=== PATIENT | female | born 1935 | race Caucasian/White ===

== ENCOUNTER 2021-02-02 10:15 | Inpatient (IN) | payer MEDICARE, MEDICAID ==
[~2021-02-02] VITALS: Ht 149.9 cm; Wt 90.0 kg
[2021-02-02 10:30] VITALS: BP 115/74
[2021-02-02] MEDS ORDERED: MAG HYDROX/AL HYDROX/SIMETH 30 ML ORAL.SUSP PO PRN (11:00)
[2021-02-02] MEDS ORDERED: MAGNESIUM HYDROXIDE 2,400 MG/30 ML ORAL.SUSP. PO PRN (11:00)
[2021-02-02] MEDS ORDERED: METHYL SALICYLATE/MENTHOL TOPICAL OINTMENT 57GM TUBE. TP PRN (11:00)
[2021-02-02 11:43] LABS: ALBUMIN 2.7 g/dL (3.4-5.0); ALBUMIN/GLOBULIN RATIO 0.7 (1.0-1.7); CALCIUM 8.8 mg/dL (8.5-10.1); CREATININE 1.4 mg/dL (0.6-1.0); GFR 35.8; POTASSIUM 4.1 mmol/L (3.5-5.1); TOTAL BILIRUBIN 0.2 mg/dL (0.2-1.0); TOTAL PROTEIN 6.8 g/dL (6.4-8.2)
[2021-02-02] MEDS ORDERED: CARV12.547 PO (12:00)
[2021-02-02] MEDS ORDERED: FLUT1AER IH (12:00)
[2021-02-02] MEDS ORDERED: OLAN5TAB9 PO (12:00)
[2021-02-02] MEDS ORDERED: ACET325T21 PO (12:00)
[2021-02-02] MEDS ORDERED: FURO40TA4 PO (12:00)
[2021-02-02] MEDS ORDERED: LEVO50TA5 PO (12:00)
[2021-02-02] MEDS ORDERED: LUBI24CA7 PO (12:00)
[2021-02-02] MEDS ORDERED: CYCL-331 PO (12:00)
[2021-02-02] MEDS ORDERED: AMIO200T6 PO (12:00)
[2021-02-02] MEDS ORDERED: OLAN2.5T3 PO (12:00)
[2021-02-02] MEDS ORDERED: HYOS0.1222 PO (12:00)
[2021-02-02] MEDS ORDERED: LOSA50TA86 PO (12:00)
[2021-02-02] MEDS ORDERED: POLY2500 PO (12:00)
[2021-02-02] MEDS ORDERED: INSU100I13 SQ (12:00)
[2021-02-02] MEDS ORDERED: OMEP20CA16 PO (12:00)
[2021-02-02] MEDS ORDERED: FLUC100T4 PO (12:00)
[2021-02-02] MEDS ORDERED: NYST15PO2 TP (12:00)
[2021-02-02] MEDS ORDERED: APIX2.5T PO (12:00)
[2021-02-02] MEDS ORDERED: INSU100V SQ (12:00)
[2021-02-02] MEDS ORDERED: LORA0.5T21 PO (12:00)
[2021-02-02] MEDS ORDERED: GLUC3SPR NS (12:00)
[2021-02-02] MEDS ORDERED: PREG75CA PO (12:00)
[2021-02-02] MEDS ORDERED: QUET50TA PO (12:00)
[2021-02-02] MEDS ORDERED: POTA10TA12 PO (12:00)
[2021-02-02 13:35] LABS: BASO % 1 % (0-3); EOS # 0.1 x10^3/uL (0.0-0.7); EOS % 2 % (0-3); HEMATOCRIT 39.3 % (36.0-47.0); HEMOGLOBIN 12.5 g/dL (12.0-15.5); LYMPH # 1.6 x10^3/uL (1.0-4.8); LYMPH % 35 % (24-48); MEAN CORPUSCULAR HEMOGLOBIN 30 pg (25-35); MEAN CORPUSCULAR HGB CONC 32 g/dL (31-37); MEAN CORPUSCULAR VOLUME 94 fL (79-100); MONO # 0.5 x10^3/uL (0.0-1.1); MONO % 11 % (0-9); NEUT # 2.5 x10^3uL (1.8-7.7); NEUT % 52 % (31-73); PLATELET COUNT 174 x10^3/uL (140-400); RED BLOOD COUNT 4.18 x10^6/uL (3.50-5.40); WHITE BLOOD COUNT 4.7 x10^3/uL (4.0-11.0)
[2021-02-02] MEDS ORDERED: HALO1TAB PO (13:42)
[2021-02-02] MEDS ORDERED: QUET25TA5 PO (13:42)
[2021-02-02] MEDS ORDERED: GLUCAGON 3 MG NS PRN (13:45)
[2021-02-02] MEDS ORDERED: ACETAMINOPHEN 325 MG TABLET PO PRN (13:45)
[2021-02-02] MEDS ORDERED: NON FORMULARY ITEM (Insulin Lispro (Humalog) 100 UNIT) SQ PRN (13:45)
[2021-02-02] MEDS ORDERED: HYOSCYAMINE 0.125 MG TAB.RAPDIS PO PRN (13:45)
[2021-02-02] MEDS ORDERED: POLYETHYLENE GLYCOL 3350 17 GM PACKET. PO PRN (14:15)
[2021-02-02] MEDS ORDERED: LORazepam 1 MG TABLET PO SCH (15:00)
[2021-02-02 16:08] VITALS: BP 134/86
[2021-02-02] MEDS: CARVEDILOL 12.5 MG TABLET PO SCH (16:43)
[2021-02-02] MEDS ORDERED: DEXTROSE 50% 25 GM / 50ML DISP.SYRIN. IV PRN (18:45)
[2021-02-02 20:07] LABS: THYROXINE 8.1 ug/dL (4.5-12.0)
[2021-02-02] MEDS ORDERED: NON FORMULARY ITEM (Insulin Lispro (Humalog) 100 UNIT) SQ SCH (21:00)
--- NOTE | 2021-02-02 21:51 | PDOC ---
Exam Note: Jose Daniel Note: Please also refer to the separate dictated note~for this date of service dictated separately.~Patient seen individually. Discussed the patient with Nursing staff reviewed the chart.~Reviewed interim history and current functioning. Reviewed vital signs,~Labs/ Radiology~and current medications noted below. Continue current treatment with the changes noted in the dictated addendum note Assessment: Vital Signs/I&O: Vital Signs Date Time Temp Pulse Resp B/P (MAP) Pulse Ox O2 Delivery O2 Flow Rate FiO2 02/02/21 16:43 73 134/86 02/02/21 16:08 97.6 17 98 Room Air Labs: Laboratory Tests Test 02/02/21 11:14 02/02/21 11:59 02/02/21 17:08 02/02/21 19:15 White Blood Count 4.7 x10^3/uL (4.0-11.0) Red Blood Count 4.18 x10^6/uL (3.50-5.40) Hemoglobin 12.5 g/dL (12.0-15.5) Hematocrit 39.3 % (36.0-47.0) Mean Corpuscular Volume 94 fL (79-100) Mean Corpuscular Hemoglobin 30 pg (25-35) Mean Corpuscular Hemoglobin Concent 32 g/dL (31-37) Red Cell Distribution Width 18.0 % (11.5-14.5) H Platelet Count 174 x10^3/uL (140-400) Neutrophils (%) (Auto) 52 % (31-73) Lymphocytes (%) (Auto) 35 % (24-48) Monocytes (%) (Auto) 11 % (0-9) H Eosinophils (%) (Auto) 2 % (0-3) Basophils (%) (Auto) 1 % (0-3) Neutrophils # (Auto) 2.5 x10^3uL (1.8-7.7) Lymphocytes # (Auto) 1.6 x10^3/uL (1.0-4.8) Monocytes # (Auto) 0.5 x10^3/uL (0.0-1.1) Eosinophils # (Auto) 0.1 x10^3/uL (0.0-0.7) Basophils # (Auto) 0.0 x10^3/uL (0.0-0.2) D-Dimer (Yane) 0.90 mg/L (0.00-0.50) H Sodium Level 149 mmol/L (136-145) H Potassium Level 4.1 mmol/L (3.5-5.1) Chloride Level 109 mmol/L (98-107) H Carbon Dioxide Level 34 mmol/L (21-32) H Anion Gap 6 (6-14) Blood Urea Nitrogen 23 mg/dL (7-20) H Creatinine 1.4 mg/dL (0.6-1.0) H Estimated GFR (Cockcroft-Gault) 35.8 BUN/Creatinine Ratio 16 (6-20) Glucose Level 130 mg/dL (70-99) H Calcium Level 8.8 mg/dL (8.5-10.1) Magnesium Level 2.0 mg/dL (1.8-2.4) Total Bilirubin 0.2 mg/dL (0.2-1.0) Aspartate Amino Transferase (AST) 30 U/L (15-37) Alanine Aminotransferase (ALT) 43 U/L (14-59) Alkaline Phosphatase 115 U/L (46-116) Total Protein 6.8 g/dL (6.4-8.2) Albumin 2.7 g/dL (3.4-5.0) L Albumin/Globulin Ratio 0.7 (1.0-1.7) L Thyroxine (T4) 8.1 ug/dL (4.5-12.0) Total Triiodothyronine (TT3) 80 ng/dL (71-180) Glucose (Fingerstick) 107 mg/dL (70-99) H 84 mg/dL (70-99) 114 mg/dL (70-99) H Current Medications: Meds: Current Medications Medications (Trade) Dose Ordered Sig/Meet Route PRN Reason Start Time Stop Time Status Last Admin Dose Admin Carvedilol (Coreg) 12.5 mg BIDWMEALS PO 02/02/21 17:00 02/02/21 16:43 Lorazepam (Ativan) 1 mg 1500 PO 02/02/21 15:00 02/02/21 16:43 I have reviewed the current psychotropics carefully including drug interactions. Risk benefit ratio favors no change other than as noted in my dictated progress note. Diagnosis: Problems: (1) Major neurocognitive disorder (2) Dementia in Alzheimer's disease with delusions (3) Dementia in Alzheimer's disease with depression (4) Dementia, vascular, with delusions (5) Dementia, vascular, with depression (6) Anxiety disorder, unspecified (7) Impulse control disorder, unspecified JARRETT LEONE MD February 02, 2021 21:51
[2021-02-02 22:00] LABS: THYROID STIM HORMONE (TSH) 4.095 uIU/mL (0.358-3.740)
[2021-02-02] MEDS: OLANZapine 5 MG TABLET PO SCH (22:05)
[2021-02-02] MEDS: APIXABAN 2.5 MG TABLET PO SCH (22:06)
[2021-02-02] MEDS: POTASSIUM CHLORIDE 10 MEQ TABLET.ER. PO SCH (22:06)
[2021-02-02] MEDS: LUBIPROSTONE 24 MCG CAPSULE PO SCH (22:06)
[2021-02-02] MEDS: PREGABALIN 75 MG CAPSULE PO SCH (22:06)
[2021-02-02] MEDS: INSULIN GLARGINE SYRINGE. SQ SCH (22:11)
[2021-02-03 00:07] LABS: HEMOGLOBIN A1C 5.7 % (4.8-5.6)
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
[2021-02-03] MEDS: LEVOTHYROXINE 50 MCG TABLET PO SCH (06:22)
[2021-02-03 06:29] VITALS: BP 148/79
[2021-02-03] MEDS: INSULIN LISPRO 300 UNITS/3 ML VIAL. SQ SCH ×3 (08:00→17:00)
[2021-02-03] MEDS: LUBIPROSTONE 24 MCG CAPSULE PO SCH ×2 (08:54→21:00)
[2021-02-03] MEDS: PREGABALIN 75 MG CAPSULE PO SCH ×2 (08:54→21:05)
[2021-02-03] MEDS: CARVEDILOL 12.5 MG TABLET PO SCH ×2 (08:54→17:15)
[2021-02-03] MEDS: OLANZapine 5 MG TABLET PO SCH ×3 (08:54→21:03)
[2021-02-03] MEDS: APIXABAN 2.5 MG TABLET PO SCH ×3 (08:54→21:04)
[2021-02-03] MEDS: FLUCONAZOLE 100 MG TABLET. PO SCH (08:55)
[2021-02-03] MEDS: QUEtiapine 25 MG TABLET. PO SCH (08:55)
[2021-02-03] MEDS: FUROSEMIDE 20 MG TABLET PO SCH (08:55)
[2021-02-03] MEDS: AMIODARONE HCL 200 MG TABLET. PO SCH (08:56)
[2021-02-03] MEDS: LOSARTAN 25 MG TABLET. PO SCH (08:56)
[2021-02-03] MEDS: CYCLOBENZAPRINE 10 MG TABLET. PO SCH (08:56)
[2021-02-03] MEDS: POTASSIUM CHLORIDE 10 MEQ TABLET.ER. PO SCH ×2 (08:56→21:00)
[2021-02-03] MEDS: PANTOPRAZOLE 40 MG TABLET. PO SCH (08:56)
[2021-02-03] MEDS: FLUTICASONE/VILANTEROL 100/25 INHALER. INH SCH (08:57)
[2021-02-03] MEDS ORDERED: LOSARTAN 50 MG TABLET. PO SCH (09:00)
[2021-02-03] MEDS ORDERED: HALOPERIDOL 1 MG TABLET PO SCH (09:00)
[2021-02-03] MEDS ORDERED: FUROSEMIDE 40 MG TABLET PO SCH (09:00)
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
[2021-02-03 15:43] VITALS: BP 143/80
[2021-02-03] MEDS: LORazepam 0.5 MG TABLET PO SCH ×2 (16:01→16:15)
[2021-02-03] MEDS: INSULIN GLARGINE SYRINGE. SQ SCH (21:06)
[2021-02-04 05:52] VITALS: BP 101/66
--- NOTE | 2021-02-04 07:24 | EKG ---
[address] [address] Test Date: 2021-02-04 Test Time: 05:02:51 Pat Name: REY HERNANDEZ Department: Room: [address] [place] [address] Gender: F Clinical Analyst: : 1935 Requested By: JARRETT LEONE Order Number: [id number] Reading MD: Measurements Intervals [place] Rate: 68 P: AR: QRS: -25 QRSD: 134 T: 56 QT: 504 QTc: 542 Interpretive Statements ACCELERATED JUNCTIONAL RHYTHM LEFTWARD AXIS NON SPECIFIC INTRAVENTRICULAR BLOCK ABNORMAL ECG RI6.01 No previous ECG available for comparison
--- NOTE | 2021-02-04 07:43 | PDOC ---
Exam Note: Jose Daniel Note: This note is a late entry for 02/03/2021 covers elements not covered in my initial note. Subjective: The patient was reviewed in the morning of 02/03/2021 for a treatment team meeting with Carla Bhatt, Krys Ramon and Rebecca (perinatal social worker), Krissy, activity therapy and Tanner SANTOS, discussed and reviewed the chart. She slept 5-1/2 hours previous night. We attempted to contact patients granddaughter Kenia to attend treatment team meeting but Kenia was unavailable. She was also seen in the evening with Iona SANTOS. The patient remains anxious, restless. She is somewhat delusional about babies. She refused 3 p.m. Ativan. Received Zyprexa Zydis 5.30 p.m. Review of Systems: Ambulation impaired in wheelchair. No CV, , pulmonary, eye, ENT system symptoms on review. Mental Status Exam: The patient is oriented to herself. Insight and judgment, recent and remote memory, attention and concentration, fund of knowledge is poor consistent with her diagnoses. She was seated in a wheelchair heat bent forward. Laboratory Data: Reviewed. Impression: Major neurocognitive disorder Alzheimer vascular with delusion, depression, behavioral disturbance. Anxiety disorder unspecified. Impulse control disorder unspecified. Plan: I have carefully reviewed the patients current psychotropics. She is on 3 antipsychotics. We will go ahead and stop Haldol 1 mg daily and for now continue Seroquel at current dosage. Adjust as clinically indicated. Consider Depakote as a mood stabilizer. Assessment: Vital Signs/I&O: Vital Signs Date Time Temp Pulse Resp B/P (MAP) Pulse Ox O2 Delivery O2 Flow Rate FiO2 02/04/21 05:52 97.2 69 20 101/66 (78) 94 02/03/21 15:43 Room Air I & O 02/03/21 02/03/21 02/04/21 14:59 22:59 06:59 Intake Total 600 ml 360 ml Balance 600 ml 360 ml Labs: Laboratory Tests Test 02/03/21 07:45 02/03/21 11:58 02/03/21 16:51 02/03/21 19:18 Glucose (Fingerstick) 82 mg/dL (70-99) 114 mg/dL (70-99) H 89 mg/dL (70-99) 101 mg/dL (70-99) H Test 02/04/21 07:14 Glucose (Fingerstick) 65 mg/dL (70-99) L Current Medications: Meds: Laboratory Tests Test 02/03/21 07:45 02/03/21 11:58 02/03/21 16:51 02/03/21 19:18 Glucose (Fingerstick) 82 mg/dL 114 mg/dL 89 mg/dL 101 mg/dL Test 02/04/21 07:14 Glucose (Fingerstick) 65 mg/dL Current Medications Medications (Trade) Dose Ordered Sig/Meet Route PRN Reason Start Time Stop Time Status Last Admin Dose Admin Acetaminophen (Tylenol) 650 mg PRN Q6HRS PRN PO MILD PAIN / TEMP > 100.3'F 02/02/21 11:00 Multi-Ingredient Ointment (Analgesic Breese) 1 vu PRN QID PRN TP MUSCLE PAIN 02/02/21 11:00 Al Hydroxide/Mg Hydroxide (Mylanta Plus Xs) 15 ml PRN AFTMEALHC PRN PO DYSPEPSIA 02/02/21 11:00 Magnesium Hydroxide (Milk Of Magnesia) 2,400 mg PRN QHS PRN PO 2ND CHOICE CONSTIPATION 02/02/21 11:00 Acetaminophen (Tylenol) 650 mg PRN Q6HRS PRN PO pain or fever 02/02/21 13:45 UNV Amiodarone HCl (Cordarone) 200 mg DAILY PO 02/03/21 09:00 02/03/21 08:56 Apixaban (Eliquis) 2.5 mg BID PO 02/02/21 21:00 02/03/21 08:54 Carvedilol (Coreg) 12.5 mg BIDWMEALS PO 02/02/21 17:00 02/03/21 17:15 Cyclobenzaprine HCl (Flexeril) 10 mg DAILY PO 02/03/21 09:00 02/03/21 08:56 Fluconazole (Diflucan) 100 mg DAILY PO 02/03/21 09:00 02/07/21 09:30 02/03/21 08:55 Furosemide (Lasix) 40 mg DAILY PO 02/03/21 09:00 02/02/21 16:16 DC Haloperidol (Haldol) 1 mg DAILY PO 02/03/21 09:00 02/03/21 14:19 DC 02/03/21 08:55 Hyoscyamine (Anaspaz) 0.125 mg PRN Q8HRS PRN PO GI SYMPTOMS 02/02/21 13:45 Levothyroxine Sodium (Synthroid) 50 mcg DAILY06 PO 02/03/21 06:00 02/03/21 06:22 Lorazepam (Ativan) 1 mg 1500 PO 02/02/21 15:00 02/03/21 14:19 DC 02/02/21 16:43 Losartan Potassium (Cozaar) 50 mg DAILY PO 02/03/21 09:00 02/02/21 16:16 DC Lubiprostone (Amitiza) 24 mcg BID PO 02/02/21 21:00 02/03/21 08:54 Nystatin (Nystop) 1 vu PRN DAILY PRN TP YEAST UNDER BREAST 02/02/21 13:45 Olanzapine (ZyPREXA) 5 mg BID PO 02/02/21 21:00 02/03/21 08:54 Potassium Chloride (Klor-Con) 10 meq BID PO 02/02/21 21:00 02/03/21 21:00 Pregabalin (Lyrica) 75 mg BID PO 02/02/21 21:00 02/03/21 21:05 Quetiapine Fumarate (SEROquel) 50 mg PRN QHS PRN PO AGITATION 02/02/21 13:45 Quetiapine Fumarate (SEROquel) 25 mg DAILY PO 02/03/21 09:00 02/03/21 08:55 Fluticasone/ Vilanterol (Breo Ellipta 100-25 Mcg) 1 puff DAILY INH 02/03/21 09:00 02/03/21 08:57 Non-Formulary Medication (Glucagon (Baqsimi)) 3 mg PRN PRN NS HYPOGLYCEMIA 02/02/21 13:45 UNV Insulin Glargine (Lantus Syringe) 8 unit QHS SQ 02/02/21 21:00 02/03/21 21:06 Non-Formulary Medication (Insulin Lispro (Humalog)) 100 unit ACHS PRN SQ DIABETES MELLITIS 02/02/21 13:45 02/02/21 18:17 DC Pantoprazole Sodium (Protonix) 40 mg DAILY PO 02/03/21 09:00 02/03/21 08:56 Polyethylene Glycol (miraLAX) 17 gm PRN BID PRN PO 1ST CHOICE CONSTIPATION 02/02/21 14:15 Furosemide (Lasix) 20 mg DAILY PO 02/03/21 09:00 02/03/21 08:55 Losartan Potassium (Cozaar) 25 mg DAILY PO 02/03/21 09:00 02/03/21 08:56 Non-Formulary Medication (Insulin Lispro (Humalog)) 100 unit TIDACHC SQ 02/02/21 21:00 UNV Olanzapine (ZyPREXA ZYDIS) 2.5 mg PRN Q2HR PRN PO PSYCHOSIS 02/02/21 18:30 02/03/21 17:45 Insulin Human Lispro (HumaLOG) 0-5 UNITS TIDWMEALS SQ 02/03/21 08:00 Dextrose (Dextrose 50%-Water Syringe) 12.5 gm PRN Q15MIN PRN IV SEE COMMENTS 02/02/21 18:45 Lorazepam (Ativan) 0.5 mg 1500 PO 02/03/21 15:00 02/05/21 23:50 Current Medications Medications (Trade) Dose Ordered Sig/Meet Route PRN Reason Start Time Stop Time Status Last Admin Dose Admin Amiodarone HCl (Cordarone) 200 mg DAILY PO 02/03/21 09:00 02/03/21 08:56 Cyclobenzaprine HCl (Flexeril) 10 mg DAILY PO 02/03/21 09:00 02/03/21 08:56 Fluconazole (Diflucan) 100 mg DAILY PO 02/03/21 09:00 02/07/21 09:30 02/03/21 08:55 Haloperidol (Haldol) 1 mg DAILY PO 02/03/21 09:00 02/03/21 14:19 DC 02/03/21 08:55 Quetiapine Fumarate (SEROquel) 25 mg DAILY PO 02/03/21 09:00 02/03/21 08:55 Fluticasone/ Vilanterol (Breo Ellipta 100-25 Mcg) 1 puff DAILY INH 02/03/21 09:00 02/03/21 08:57 Pantoprazole Sodium (Protonix) 40 mg DAILY PO 02/03/21 09:00 02/03/21 08:56 Furosemide (Lasix) 20 mg DAILY PO 02/03/21 09:00 02/03/21 08:55 Losartan Potassium (Cozaar) 25 mg DAILY PO 02/03/21 09:00 02/03/21 08:56 I have reviewed the current psychotropics carefully including drug interactions. Risk benefit ratio favors no change other than as noted in my dictated progress note. Diagnosis: Problems: (1) Dementia of the Alzheimer's type with early onset with behavioral disturbance (2) Impulse control disorder, unspecified (3) Anxiety disorder, unspecified (4) Dementia, vascular, with depression (5) Dementia, vascular, with delusions (6) Dementia in Alzheimer's disease with depression (7) Dementia in Alzheimer's disease with delusions (8) Major neurocognitive disorder JARRETT LEONE MD February 04, 2021 07:42
[2021-02-04] MEDS: INSULIN LISPRO 300 UNITS/3 ML VIAL. SQ SCH ×3 (08:00→17:27)
[2021-02-04] MEDS: QUEtiapine 25 MG TABLET. PO SCH (08:38)
[2021-02-04] MEDS: FLUCONAZOLE 100 MG TABLET. PO SCH (08:38)
[2021-02-04] MEDS: LEVOTHYROXINE 50 MCG TABLET PO SCH (08:38)
[2021-02-04] MEDS: PANTOPRAZOLE 40 MG TABLET. PO SCH (08:38)
[2021-02-04] MEDS: CYCLOBENZAPRINE 10 MG TABLET. PO SCH (08:38)
[2021-02-04] MEDS: OLANZapine 5 MG TABLET PO SCH ×2 (08:38→20:13)
[2021-02-04] MEDS: PREGABALIN 75 MG CAPSULE PO SCH ×2 (08:38→20:13)
[2021-02-04] MEDS: CARVEDILOL 12.5 MG TABLET PO SCH ×3 (08:39→17:31)
[2021-02-04] MEDS: LOSARTAN 25 MG TABLET. PO SCH (08:39)
[2021-02-04] MEDS: FUROSEMIDE 20 MG TABLET PO SCH (08:39)
[2021-02-04] MEDS: POTASSIUM CHLORIDE 10 MEQ TABLET.ER. PO SCH ×2 (08:39→20:14)
[2021-02-04] MEDS: AMIODARONE HCL 200 MG TABLET. PO SCH (08:40)
[2021-02-04] MEDS: APIXABAN 2.5 MG TABLET PO SCH ×2 (08:40→20:14)
[2021-02-04] MEDS: LUBIPROSTONE 24 MCG CAPSULE PO SCH ×2 (08:40→20:15)
[2021-02-04] MEDS: FLUTICASONE/VILANTEROL 100/25 INHALER. INH SCH (08:40)
[2021-02-04 15:50] VITALS: BP 114/73
[2021-02-04] MEDS: LORazepam 0.5 MG TABLET PO SCH (15:54)
[2021-02-04 17:40] LABS: BILIRUBIN,URINE NEG (NEG); CLARITY,URINE CLOUDY; COLOR,URINE YELLOW; GLUCOSE,URINE NEG (NEG)
[2021-02-04 17:41] LABS: BACTERIA,URINE FEW /HPF (0-FEW); NITRITE,URINE NEG (NEG); RBC,URINE 0 /HPF (0-2); SQUAMOUS EPITHELIAL CELL,UR MANY /LPF; UROBILINOGEN,URINE 0.2 mg/dL (0.2 mg/dL); WBC,URINE 20-40 /HPF (0-4)
[2021-02-04] MEDS: INSULIN GLARGINE SYRINGE. SQ SCH (20:19)
--- NOTE | 2021-02-04 21:47 | PDOC ---
Exam Note: Jose Daniel Note: Please also refer to the separate dictated note~for this date of service dictated separately.~Patient seen individually. Discussed the patient with Nursing staff reviewed the chart.~Reviewed interim history and current functioning. Reviewed vital signs,~Labs/ Radiology~and current medications noted below. Continue current treatment with the changes noted in the dictated addendum note Assessment: Vital Signs/I&O: Vital Signs Date Time Temp Pulse Resp B/P (MAP) Pulse Ox O2 Delivery O2 Flow Rate FiO2 02/04/21 17:31 70 114/73 02/04/21 15:50 97.8 16 95 02/03/21 15:43 Room Air I & O 02/03/21 02/03/21 02/04/21 15:00 23:00 07:00 Intake Total 600 ml 360 ml Balance 600 ml 360 ml Labs: Laboratory Tests Test 02/04/21 07:14 02/04/21 11:46 02/04/21 16:38 02/04/21 17:00 Glucose (Fingerstick) 65 mg/dL (70-99) L 92 mg/dL (70-99) 118 mg/dL (70-99) H Urine Collection Type Unknown Urine Color Yellow Urine Clarity Cloudy Urine pH 6.5 Urine Specific Orange 1.020 Urine Protein Neg (NEG-TRACE) Urine Glucose (UA) Neg mg/dL (NEG) Urine Ketones (Stick) Neg mg/dL (NEG) Urine Blood Trace (NEG) Urine Nitrite Neg (NEG) Urine Bilirubin Neg (NEG) Urine Urobilinogen Dipstick 0.2 mg/dL (0.2 mg/dL) Urine Leukocyte Esterase Mod (NEG) Urine RBC 0 /HPF (0-2) Urine WBC 20-40 /HPF (0-4) Urine Squamous Epithelial Cells Many /LPF Urine Bacteria Few /HPF (0-FEW) Test 02/04/21 19:23 Glucose (Fingerstick) 83 mg/dL (70-99) Current Medications: Meds: Laboratory Tests Test 02/04/21 07:14 02/04/21 11:46 02/04/21 16:38 02/04/21 17:00 Glucose (Fingerstick) 65 mg/dL 92 mg/dL 118 mg/dL Urine Collection Type Unknown Urine Color Yellow Urine Clarity Cloudy Urine pH 6.5 Urine Specific Orange 1.020 Urine Protein Neg Urine Glucose (UA) Neg mg/dL Urine Ketones (Stick) Neg mg/dL Urine Blood Trace Urine Nitrite Neg Urine Bilirubin Neg Urine Urobilinogen Dipstick 0.2 mg/dL Urine Leukocyte Esterase Mod Urine RBC 0 /HPF Urine WBC 20-40 /HPF Urine Squamous Epithelial Cells Many /LPF Urine Bacteria Few /HPF Test 02/04/21 19:23 Glucose (Fingerstick) 83 mg/dL Current Medications Medications (Trade) Dose Ordered Sig/Meet Route PRN Reason Start Time Stop Time Status Last Admin Dose Admin Acetaminophen (Tylenol) 650 mg PRN Q6HRS PRN PO MILD PAIN / TEMP > 100.3'F 02/02/21 11:00 Multi-Ingredient Ointment (Analgesic [place]) 1 vu PRN QID PRN TP MUSCLE PAIN 02/02/21 11:00 Al Hydroxide/Mg Hydroxide (Mylanta Plus Xs) 15 ml PRN AFTMEALHC PRN PO DYSPEPSIA 02/02/21 11:00 Magnesium Hydroxide (Milk Of Magnesia) 2,400 mg PRN QHS PRN PO 2ND CHOICE CONSTIPATION 02/02/21 11:00 Acetaminophen (Tylenol) 650 mg PRN Q6HRS PRN PO pain or fever 02/02/21 13:45 UNV Amiodarone HCl (Cordarone) 200 mg DAILY PO 02/03/21 09:00 02/04/21 08:40 Apixaban (Eliquis) 2.5 mg BID PO 02/02/21 21:00 02/04/21 20:14 Carvedilol (Coreg) 12.5 mg BIDWMEALS PO 02/02/21 17:00 02/04/21 08:39 Cyclobenzaprine HCl (Flexeril) 10 mg DAILY PO 02/03/21 09:00 02/04/21 08:38 Fluconazole (Diflucan) 100 mg DAILY PO 02/03/21 09:00 02/07/21 09:30 02/04/21 08:38 Furosemide (Lasix) 40 mg DAILY PO 02/03/21 09:00 02/02/21 16:16 DC Haloperidol (Haldol) 1 mg DAILY PO 02/03/21 09:00 02/03/21 14:19 DC 02/03/21 08:55 Hyoscyamine (Anaspaz) 0.125 mg PRN Q8HRS PRN PO GI SYMPTOMS 02/02/21 13:45 Levothyroxine Sodium (Synthroid) 50 mcg DAILY06 PO 02/03/21 06:00 02/04/21 08:38 Lorazepam (Ativan) 1 mg 1500 PO 02/02/21 15:00 02/03/21 14:19 DC 02/02/21 16:43 Losartan Potassium (Cozaar) 50 mg DAILY PO 02/03/21 09:00 02/02/21 16:16 DC Lubiprostone (Amitiza) 24 mcg BID PO 02/02/21 21:00 02/04/21 20:15 Nystatin (Nystop) 1 vu PRN DAILY PRN TP YEAST UNDER BREAST 02/02/21 13:45 Olanzapine (ZyPREXA) 5 mg BID PO 02/02/21 21:00 02/04/21 20:13 Potassium Chloride (Klor-Con) 10 meq BID PO 02/02/21 21:00 02/04/21 20:14 Pregabalin (Lyrica) 75 mg BID PO 02/02/21 21:00 02/04/21 20:13 Quetiapine Fumarate (SEROquel) 50 mg PRN QHS PRN PO AGITATION 02/02/21 13:45 Quetiapine Fumarate (SEROquel) 25 mg DAILY PO 02/03/21 09:00 02/04/21 08:38 Fluticasone/ Vilanterol (Breo Ellipta 100-25 Mcg) 1 puff DAILY INH 02/03/21 09:00 02/04/21 08:40 Non-Formulary Medication (Glucagon (Baqsimi)) 3 mg PRN PRN NS HYPOGLYCEMIA 02/02/21 13:45 UNV Insulin Glargine (Lantus Syringe) 8 unit QHS SQ 02/02/21 21:00 02/03/21 21:06 Non-Formulary Medication (Insulin Lispro (Humalog)) 100 unit ACHS PRN SQ DIABETES MELLITIS 02/02/21 13:45 02/02/21 18:17 DC Pantoprazole Sodium (Protonix) 40 mg DAILY PO 02/03/21 09:00 02/04/21 08:38 Polyethylene Glycol (miraLAX) 17 gm PRN BID PRN PO 1ST CHOICE CONSTIPATION 02/02/21 14:15 Furosemide (Lasix) 20 mg DAILY PO 02/03/21 09:00 02/04/21 08:39 Losartan Potassium (Cozaar) 25 mg DAILY PO 02/03/21 09:00 02/04/21 08:39 Non-Formulary Medication (Insulin Lispro (Humalog)) 100 unit TIDACHC SQ 02/02/21 21:00 UNV Olanzapine (ZyPREXA ZYDIS) 2.5 mg PRN Q2HR PRN PO PSYCHOSIS 02/02/21 18:30 02/04/21 20:15 Insulin Human Lispro (HumaLOG) 0-5 UNITS TIDWMEALS SQ 02/03/21 08:00 Dextrose (Dextrose 50%-Water Syringe) 12.5 gm PRN Q15MIN PRN IV SEE COMMENTS 02/02/21 18:45 Lorazepam (Ativan) 0.5 mg 1500 PO 02/03/21 15:00 02/05/21 23:50 02/04/21 15:54 I have reviewed the current psychotropics carefully including drug interactions. Risk benefit ratio favors no change other than as noted in my dictated progress note. Diagnosis: Problems: (1) Impulse control disorder, unspecified (2) Anxiety disorder, unspecified (3) Dementia, vascular, with depression (4) Dementia, vascular, with delusions (5) Dementia in Alzheimer's disease with depression (6) Dementia in Alzheimer's disease with delusions (7) Major neurocognitive disorder (8) Dementia of the Alzheimer's type with early onset with behavioral disturbance JARRETT LEONE MD February 04, 2021 21:47
[2021-02-05] MEDS: LEVOTHYROXINE 50 MCG TABLET PO SCH (05:19)
[2021-02-05 05:54] VITALS: BP 106/67
[2021-02-05 06:58] LABS: CALCIUM 8.9 mg/dL (8.5-10.1); CREATININE 1.1 mg/dL (0.6-1.0); GFR 47.3
[2021-02-05] MEDS: INSULIN LISPRO 300 UNITS/3 ML VIAL. SQ SCH ×3 (07:40→17:00)
[2021-02-05] MEDS: FLUCONAZOLE 100 MG TABLET. PO SCH (08:34)
[2021-02-05] MEDS: FUROSEMIDE 20 MG TABLET PO SCH (08:34)
[2021-02-05] MEDS: OLANZapine 5 MG TABLET PO SCH ×3 (08:35→21:00)
[2021-02-05] MEDS: QUEtiapine 25 MG TABLET. PO SCH (08:35)
[2021-02-05] MEDS: PANTOPRAZOLE 40 MG TABLET. PO SCH (08:35)
[2021-02-05] MEDS: CYCLOBENZAPRINE 10 MG TABLET. PO SCH (08:35)
[2021-02-05] MEDS: POTASSIUM CHLORIDE 10 MEQ TABLET.ER. PO SCH ×3 (08:35→21:00)
[2021-02-05] MEDS: AMIODARONE HCL 200 MG TABLET. PO SCH (08:35)
[2021-02-05] MEDS: PREGABALIN 75 MG CAPSULE PO SCH ×3 (08:35→21:00)
[2021-02-05] MEDS: APIXABAN 2.5 MG TABLET PO SCH ×3 (08:35→21:00)
[2021-02-05] MEDS: LOSARTAN 25 MG TABLET. PO SCH (08:36)
[2021-02-05] MEDS: FLUTICASONE/VILANTEROL 100/25 INHALER. INH SCH (08:36)
[2021-02-05] MEDS: CARVEDILOL 12.5 MG TABLET PO SCH ×3 (08:36→17:55)
[2021-02-05] MEDS: LUBIPROSTONE 24 MCG CAPSULE PO SCH ×3 (08:36→21:00)
[2021-02-05 16:01] VITALS: BP 155/79
[2021-02-05] MEDS: LORazepam 0.5 MG TABLET PO SCH (17:54)
[2021-02-05] MEDS: INSULIN GLARGINE SYRINGE. SQ SCH (19:45)
--- NOTE | 2021-02-05 23:32 | PN ---
DATE: 02/05/2021 SUBJECTIVE: The patient was seen today, met with the staff. Chart was reviewed and also covering for Dr. Brothers. The patient continues to have behavior problems difficult to redirect, resistive to care, currently on wheelchair and also refusing medications. The patient also tends to hold and grab people. PHYSICAL EXAMINATION: VITAL SIGNS: Temperature 96.8, blood pressure 106/67, pulse 62, respirations 16, O2 sat 94%. Slept about 6 hours last night. CURRENT MEDICATIONS: Include Lorazepam 0.5 mg daily, Seroquel 25 mg daily, Lyrica 75 mg b.i.d., olanzapine 5 mg b.i.d. and also olanzapine 2.5 mg q. 2 hours p.r.n. and Seroquel 50 mg at night p.r.n. for agitation. The patient is not presenting with any major side effects from the medications. LABORATORY DATA: The patient's lab reviewed. ASSESSMENT: 1. Major neurocognitive disorder, Alzheimer's, vascular with delusions, depression and behavioral disturbances. 2. Anxiety disorder, unspecified. PLAN: To continue with the current treatment plan. Length of stay 7 to [address]: Hector TID: [id number] GAYLE
[2021-02-06] MEDS: LEVOTHYROXINE 50 MCG TABLET PO SCH (06:00)
[2021-02-06 06:03] VITALS: BP 129/72
[2021-02-06] MEDS: INSULIN LISPRO 300 UNITS/3 ML VIAL. SQ SCH ×3 (07:38→17:00)
[2021-02-06] MEDS: CARVEDILOL 12.5 MG TABLET PO SCH ×2 (08:00→17:07)
[2021-02-06] MEDS: QUEtiapine 25 MG TABLET. PO SCH (08:51)
[2021-02-06] MEDS: OLANZapine 5 MG TABLET PO SCH ×2 (08:51→20:12)
[2021-02-06] MEDS: LUBIPROSTONE 24 MCG CAPSULE PO SCH ×2 (08:55→20:12)
[2021-02-06] MEDS: FLUTICASONE/VILANTEROL 100/25 INHALER. INH SCH (08:55)
[2021-02-06] MEDS: AMIODARONE HCL 200 MG TABLET. PO SCH (08:56)
[2021-02-06] MEDS: LOSARTAN 25 MG TABLET. PO SCH (08:56)
[2021-02-06] MEDS: APIXABAN 2.5 MG TABLET PO SCH ×2 (08:56→20:11)
[2021-02-06] MEDS: FLUCONAZOLE 100 MG TABLET. PO SCH (08:56)
[2021-02-06] MEDS: CYCLOBENZAPRINE 10 MG TABLET. PO SCH (08:57)
[2021-02-06] MEDS: PREGABALIN 75 MG CAPSULE PO SCH ×2 (08:57→20:12)
[2021-02-06] MEDS: FUROSEMIDE 20 MG TABLET PO SCH (08:57)
[2021-02-06] MEDS: POTASSIUM CHLORIDE 10 MEQ TABLET.ER. PO SCH ×2 (08:57→20:12)
[2021-02-06] MEDS: PANTOPRAZOLE 40 MG TABLET. PO SCH (08:58)
[2021-02-06 16:06] VITALS: BP 130/87
[2021-02-06] MEDS: INSULIN GLARGINE SYRINGE. SQ SCH (20:13)
--- NOTE | 2021-02-07 05:40 | PN ---
DATE: 02/06/2021 SUBJECTIVE: The patient was seen today, met with the staff. Chart reviewed and also covering for Dr. Brothers. The patient has not presented with any major problems today, less anxious and tense, able to cooperate with ADLs. OBSERVATION: VITAL SIGNS: Temperature 96.9, blood pressure 129/72, pulse 69, respirations 16, O2 sat 93%. Slept about 7 hours last night. The patient's appetite is fair. CURRENT MEDICATIONS: Include Seroquel 25 mg daily, olanzapine 5 mg twice a day and Lyrica 75 mg twice a day. She is also on lorazepam 0.5 mg daily and also olanzapine 2.5 mg every 2 hours and Seroquel 50 mg at night p.r.n. for agitation. The patient is not exhibiting any side effects to medications. LABORATORY DATA: The patient's lab reviewed. ASSESSMENT: Major neurocognitive disorder, most likely Alzheimer's; vascular with the delusions; depression; behavioral disturbances and anxiety disorder, unspecified. PLAN: To continue with the current treatment plan. LENGTH OF STAY: 7 to 10 days. HIWOT/JOHN DR: Hector TID: [id number] [facility]
[2021-02-07] MEDS: LEVOTHYROXINE 50 MCG TABLET PO SCH (05:50)
[2021-02-07 06:28] VITALS: BP 157/88
[2021-02-07] MEDS: INSULIN LISPRO 300 UNITS/3 ML VIAL. SQ SCH ×3 (08:00→17:00)
[2021-02-07] MEDS: FLUTICASONE/VILANTEROL 100/25 INHALER. INH SCH (08:38)
[2021-02-07] MEDS: AMIODARONE HCL 200 MG TABLET. PO SCH (08:39)
[2021-02-07] MEDS: OLANZapine 5 MG TABLET PO SCH ×2 (08:39→20:05)
[2021-02-07] MEDS: FLUCONAZOLE 100 MG TABLET. PO SCH (08:39)
[2021-02-07] MEDS: APIXABAN 2.5 MG TABLET PO SCH ×2 (08:39→20:05)
[2021-02-07] MEDS: POTASSIUM CHLORIDE 10 MEQ TABLET.ER. PO SCH ×2 (08:39→20:05)
[2021-02-07] MEDS: QUEtiapine 25 MG TABLET. PO SCH (08:40)
[2021-02-07] MEDS: PREGABALIN 75 MG CAPSULE PO SCH ×2 (08:40→20:05)
[2021-02-07] MEDS: LOSARTAN 25 MG TABLET. PO SCH (08:41)
[2021-02-07] MEDS: FUROSEMIDE 20 MG TABLET PO SCH (08:41)
[2021-02-07] MEDS: CARVEDILOL 12.5 MG TABLET PO SCH ×2 (08:41→17:14)
[2021-02-07] MEDS: CYCLOBENZAPRINE 10 MG TABLET. PO SCH (08:41)
[2021-02-07] MEDS: LUBIPROSTONE 24 MCG CAPSULE PO SCH ×2 (08:41→20:05)
[2021-02-07] MEDS: PANTOPRAZOLE 40 MG TABLET. PO SCH (08:41)
[2021-02-07 16:02] VITALS: BP 114/69
[2021-02-07] MEDS: NYSTATIN TOPICAL POWDER 15GM BOTTLE. TP PRN (21:26)
[2021-02-07] MEDS: INSULIN GLARGINE SYRINGE. SQ SCH (21:40)
--- NOTE | 2021-02-07 23:15 | PN ---
DATE: 02/07/2021 SUBJECTIVE: The patient was seen today, met with the staff. Chart was reviewed. I am also covering for Dr. Brothers. The patient continues to show improvement, has not presented with any major behavior problems. OBSERVATION: VITAL SIGNS: Temperature 98.4, blood pressure 157/88, pulse 74, respirations 18, O2 sat 94%. She slept about 5 hours last night. The patient's appetite is fair. Staff reports no falls. MEDICATIONS: Currently, she is on Seroquel 25 mg daily, olanzapine 5 mg twice a day and Lyrica 75 mg twice a day. She is also on lorazepam 0.5 mg daily. The patient is also on olanzapine 2.5 mg every 2 hours p.r.n. and Seroquel 50 mg at night p.r.n. for agitation. The patient is not exhibiting any major side effects to medications. LABORATORY DATA: Reviewed. ASSESSMENT: Major neurocognitive disorder, most likely Alzheimer's, vascular with delusion, depression and behavioral disturbances. PLAN: To continue with the treatment. LENGTH OF STAY: Seven to ten days. HIWOT/VICKI/ANA DR: Hector TID: [id number] GAYLE
[2021-02-08] MEDS: LEVOTHYROXINE 50 MCG TABLET PO SCH (05:53)
[2021-02-08 06:10] VITALS: BP 107/65
[2021-02-08] MEDS: INSULIN LISPRO 300 UNITS/3 ML VIAL. SQ SCH ×3 (08:00→17:13)
[2021-02-08] MEDS: CARVEDILOL 12.5 MG TABLET PO SCH ×2 (08:00→17:15)
[2021-02-08] MEDS: POTASSIUM CHLORIDE 10 MEQ TABLET.ER. PO SCH ×2 (08:57→20:01)
[2021-02-08] MEDS: QUEtiapine 25 MG TABLET. PO SCH (08:58)
[2021-02-08] MEDS: PREGABALIN 75 MG CAPSULE PO SCH ×2 (08:58→20:02)
[2021-02-08] MEDS: CYCLOBENZAPRINE 10 MG TABLET. PO SCH (08:58)
[2021-02-08] MEDS: PANTOPRAZOLE 40 MG TABLET. PO SCH (08:58)
[2021-02-08] MEDS: APIXABAN 2.5 MG TABLET PO SCH ×2 (08:58→20:01)
[2021-02-08] MEDS: OLANZapine 5 MG TABLET PO SCH ×2 (08:58→20:01)
[2021-02-08] MEDS: FUROSEMIDE 20 MG TABLET PO SCH (08:59)
[2021-02-08] MEDS: FLUTICASONE/VILANTEROL 100/25 INHALER. INH SCH (08:59)
[2021-02-08] MEDS: LUBIPROSTONE 24 MCG CAPSULE PO SCH ×2 (08:59→20:02)
[2021-02-08] MEDS: LOSARTAN 25 MG TABLET. PO SCH (09:00)
[2021-02-08] MEDS: AMIODARONE HCL 200 MG TABLET. PO SCH (09:00)
[2021-02-08] MEDS: NYSTATIN TOPICAL POWDER 15GM BOTTLE. TP PRN (10:17)
[2021-02-08 16:23] VITALS: BP 150/84
[2021-02-08] MEDS: INSULIN GLARGINE SYRINGE. SQ SCH (21:12)
[2021-02-09 06:01] VITALS: BP 130/82
[2021-02-09] MEDS: LEVOTHYROXINE 50 MCG TABLET PO SCH (06:22)
[2021-02-09 06:32] LABS: BASO % 1 % (0-3); EOS # 0.1 x10^3/uL (0.0-0.7); EOS % 3 % (0-3); HEMATOCRIT 36.9 % (36.0-47.0); HEMOGLOBIN 11.8 g/dL (12.0-15.5); LYMPH # 1.7 x10^3/uL (1.0-4.8); LYMPH % 43 % (24-48); MEAN CORPUSCULAR HEMOGLOBIN 30 pg (25-35); MEAN CORPUSCULAR HGB CONC 32 g/dL (31-37); MEAN CORPUSCULAR VOLUME 93 fL (79-100); MONO # 0.4 x10^3/uL (0.0-1.1); MONO % 11 % (0-9); NEUT # 1.7 x10^3uL (1.8-7.7); NEUT % 43 % (31-73); PLATELET COUNT 142 x10^3/uL (140-400); RED BLOOD COUNT 3.98 x10^6/uL (3.50-5.40); RED CELL DISTRIBUTION WIDTH 17.4 % (11.5-14.5)
[2021-02-09 06:55] LABS: ALBUMIN 2.5 g/dL (3.4-5.0); ALBUMIN/GLOBULIN RATIO 0.7 (1.0-1.7); CALCIUM 8.5 mg/dL (8.5-10.1); GFR 52.8; POTASSIUM 3.6 mmol/L (3.5-5.1); TOTAL BILIRUBIN 0.3 mg/dL (0.2-1.0); TOTAL PROTEIN 6.2 g/dL (6.4-8.2)
[2021-02-09] MEDS: INSULIN LISPRO 300 UNITS/3 ML VIAL. SQ SCH ×3 (08:00→17:00)
[2021-02-09] MEDS: POTASSIUM CHLORIDE 10 MEQ TABLET.ER. PO SCH ×2 (08:19→20:22)
[2021-02-09] MEDS: CYCLOBENZAPRINE 10 MG TABLET. PO SCH (08:19)
[2021-02-09] MEDS: OLANZapine 5 MG TABLET PO SCH ×2 (08:19→20:23)
[2021-02-09] MEDS: PANTOPRAZOLE 40 MG TABLET. PO SCH (08:19)
[2021-02-09] MEDS: PREGABALIN 75 MG CAPSULE PO SCH ×2 (08:19→20:22)
[2021-02-09] MEDS: QUEtiapine 25 MG TABLET. PO SCH (08:19)
[2021-02-09] MEDS: FUROSEMIDE 20 MG TABLET PO SCH (08:20)
[2021-02-09] MEDS: AMIODARONE HCL 200 MG TABLET. PO SCH (08:20)
[2021-02-09] MEDS: CARVEDILOL 12.5 MG TABLET PO SCH ×2 (08:20→17:10)
[2021-02-09] MEDS: LOSARTAN 25 MG TABLET. PO SCH (08:21)
[2021-02-09] MEDS: LUBIPROSTONE 24 MCG CAPSULE PO SCH ×2 (08:21→20:22)
[2021-02-09] MEDS: APIXABAN 2.5 MG TABLET PO SCH ×2 (08:21→20:22)
[2021-02-09] MEDS: NYSTATIN TOPICAL POWDER 15GM BOTTLE. TP SCH ×2 (09:00→20:25)
--- NOTE | 2021-02-09 09:35 | PN ---
DATE: 02/08/2021 SUBJECTIVE: The patient was seen today, met with the staff. Chart was reviewed and also covering for Dr. Brothers. The patient continues to show improvement, has not presented with any major behavior problems. OBSERVATION: VITAL SIGNS: Temperature 96.8, blood pressure 150/84, pulse 67, respirations 16, O2 saturation 98%. The patient is currently on Seroquel 25 mg daily, olanzapine 5 mg twice a day, Lyrica 75 mg twice a day . The patient is also on p.r.n. olanzapine and Seroquel for agitation. The patient is not having any major side effects from medications. LABORATORY DATA: The patient's lab reviewed. ASSESSMENT: Major neurocognitive disorder, most likely Alzheimer's, vascular with delusion, depression and behavioral disturbances. PLAN: Continue with the treatment. LENGTH OF STAY: Seven days. SHEA DR: Hector TID: [id number] MTDD
[2021-02-09] MEDS: FLUTICASONE/VILANTEROL 100/25 INHALER. INH SCH (12:13)
[2021-02-09 16:29] VITALS: BP 128/79
[2021-02-09] MEDS: INSULIN GLARGINE SYRINGE. SQ SCH (20:24)
--- NOTE | 2021-02-10 02:34 | PN ---
DATE: 02/09/2021 HISTORY OF PRESENT ILLNESS:The patient was seen today, met with the staff. Chart was reviewed and also covering for Dr. Brothers. Staff reports no major behavioral problems. She is calm, cooperative, pleasant and med compliant. OBSERVATION: VITAL SIGNS: Temperature 97.1, blood pressure 130/82, pulse 60, respirations 18, O2 sat 97%. Slept about 6 hours last night. CURRENT MEDICATIONS: Include Seroquel 25 mg daily, olanzapine 5 mg twice a day, olanzapine 2.5 mg q. 2 hours p.r.n. and Seroquel 50 mg at bedtime p.r.n. for agitation. Patient is not having any side effects to medications. ASSESSMENT: Major neurocognitive disorder, most likely Alzheimer's, vascular with delusion, depression and behavioral disturbances. PLAN: To continue with the treatment. LENGTH OF STAY: Seven days. PRESLEY DR: Hector TID: [id number]
[2021-02-10 05:25] VITALS: BP 109/69
[2021-02-10] MEDS: LEVOTHYROXINE 50 MCG TABLET PO SCH (05:29)
[2021-02-10] MEDS: INSULIN LISPRO 300 UNITS/3 ML VIAL. SQ SCH ×3 (08:00→17:00)
[2021-02-10] MEDS: FUROSEMIDE 20 MG TABLET PO SCH (08:32)
[2021-02-10] MEDS: PREGABALIN 75 MG CAPSULE PO SCH ×2 (08:32→20:24)
[2021-02-10] MEDS: LOSARTAN 25 MG TABLET. PO SCH (08:32)
[2021-02-10] MEDS: POTASSIUM CHLORIDE 10 MEQ TABLET.ER. PO SCH ×2 (08:32→20:25)
[2021-02-10] MEDS: QUEtiapine 25 MG TABLET. PO SCH (08:32)
[2021-02-10] MEDS: OLANZapine 5 MG TABLET PO SCH (08:33)
[2021-02-10] MEDS: APIXABAN 2.5 MG TABLET PO SCH ×2 (08:33→20:24)
[2021-02-10] MEDS: CARVEDILOL 12.5 MG TABLET PO SCH ×3 (08:33→17:16)
[2021-02-10] MEDS: AMIODARONE HCL 200 MG TABLET. PO SCH (08:33)
[2021-02-10] MEDS: PANTOPRAZOLE 40 MG TABLET. PO SCH (08:33)
[2021-02-10] MEDS: CYCLOBENZAPRINE 10 MG TABLET. PO SCH (08:34)
[2021-02-10] MEDS: LUBIPROSTONE 24 MCG CAPSULE PO SCH ×2 (08:34→20:25)
[2021-02-10] MEDS: NYSTATIN TOPICAL POWDER 15GM BOTTLE. TP SCH ×2 (09:00→21:00)
[2021-02-10] MEDS: FLUTICASONE/VILANTEROL 100/25 INHALER. INH SCH (09:00)
[2021-02-10 16:09] VITALS: BP 146/80
[2021-02-10] MEDS: OLANZapine 7.5 MG TABLET PO SCH (20:24)
[2021-02-10] MEDS: INSULIN GLARGINE SYRINGE. SQ SCH (21:00)
--- NOTE | 2021-02-11 03:39 | PN ---
DATE: 02/10/2021 SUBJECTIVE: The patient was seen today, met with the staff. Chart was reviewed and also participated in the treatment review meeting today. The patient has not presented with any major behavior problems except for confusion, able to redirect. She usually gets agitated at night. The patient also has some delusional behaviors looking for her children. The patient also has episodes where she is increasingly agitated, also confused and fearful and wanting to call the police. The patient was given Zyprexa Zydis 2.5 mg as p.r.n. to calm her down. OBSERVATION: VITAL SIGNS: Temperature 98.1, blood pressure 109/69, pulse 63, respirations 16, O2 sat 94%. Slept about 6 hours last night. The patient's appetite is fair. CURRENT MEDICATIONS: Include Seroquel 25 mg daily, olanzapine 5 mg twice a day, olanzapine 2.5 mg q.2 hours p.r.n. and Seroquel 50 mg at bedtime p.r.n. for agitation. The patient is not having any side effects to medications. ASSESSMENT: Major neurocognitive disorder, most likely Alzheimer's, vascular with delusions, depression and behavioral disturbances. PLAN: The patient was taken off the Zyprexa and increase the dose to 5 mg in the morning and 7.5 mg at night. The patient is not having any side effects to the medications. The patient's lab reviewed. Plan to continue with the treatment. LENGTH OF STAY: Seven days. HIWOT DR: HIWOT/antony TID: [id number]
[2021-02-11 05:33] VITALS: BP 107/67
[2021-02-11] MEDS: LEVOTHYROXINE 50 MCG TABLET PO SCH (06:29)
[2021-02-11] MEDS: INSULIN LISPRO 300 UNITS/3 ML VIAL. SQ SCH ×3 (08:00→17:00)
[2021-02-11] MEDS: CYCLOBENZAPRINE 10 MG TABLET. PO SCH (08:21)
[2021-02-11] MEDS: AMIODARONE HCL 200 MG TABLET. PO SCH (08:21)
[2021-02-11] MEDS: OLANZapine 5 MG TABLET PO SCH (08:21)
[2021-02-11] MEDS: PANTOPRAZOLE 40 MG TABLET. PO SCH (08:21)
[2021-02-11] MEDS: PREGABALIN 75 MG CAPSULE PO SCH ×2 (08:22→19:48)
[2021-02-11] MEDS: APIXABAN 2.5 MG TABLET PO SCH ×2 (08:22→19:49)
[2021-02-11] MEDS: LOSARTAN 25 MG TABLET. PO SCH (08:22)
[2021-02-11] MEDS: CARVEDILOL 12.5 MG TABLET PO SCH ×2 (08:22→17:00)
[2021-02-11] MEDS: POTASSIUM CHLORIDE 10 MEQ TABLET.ER. PO SCH ×2 (08:22→19:48)
[2021-02-11] MEDS: LUBIPROSTONE 24 MCG CAPSULE PO SCH ×2 (08:22→19:49)
--- NOTE | 2021-02-11 08:36 | TX PLAN ---
Interdisciplinary Tx Plan Admission Information February 02, 2021 at 10:15 Legal Status (on Admission): Voluntary DPOA/Guardian Name: Brittni Pak dtr-in-law Contact Other Contact Name: Kenia Win is the SW at facility plus pt's gdtr Other Contact Phone: [phone] Verified Code Status: DNR Allergies: Coded Allergies: tetanus immune globulin (Verified Allergy, Intermediate, 02/11/21) Penicillins (Verified Allergy, Unknown, 02/02/21) codeine (Verified Allergy, Unknown, 02/02/21) felodipine (Verified Allergy, Unknown, 02/02/21) naproxen (Verified Allergy, Unknown, 02/02/21) Diagnoses Primary Diagnosis: Major neurocognitive disorder, Alzheimer, vascular with delusion, depression, behavioral disturbance, anxiety disorder, unspecified; impulse control disorder, unspecified. Reasons for Admission: Aggressive, Delusions, Agitated, Angry, Combative, Confusion/Disoriented Problem in Patient's Words: Pt not cooperative with psychosocial assessement and doesn't want to talk. She just wants her discharge papers. Per pt spokes person, who is pt's gdtr, Kenia, the above information is accurate as Kenia is the high school social studies tutor from pt's living facility. Kenia adds that pt is very delusional and adds from the above delusional beliefs that pt thinks that she is in a relationship with a black man named Napoleon and that Napoleon is her everything. 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 So, it's possible that some of her delusions are actual associations to her past. Additional Admission Comments: Per intake record, pt was refusing medication, resistive to cares, attempts to elope, restless, sundowning, combative toward staff-kicked staff in [place], yelling, thinks house is on fire, delusional-thinks babies on 2nd floor are being taught to have sex. Problems Active Problems: Delusions, agitation, resistive to cares, confusion, anger Inactive Problems: None noted at this time Pt Strengths/Limitations Ability for [place]: Poor Cognitive Functioning/Ability: Fair Communication Skills/Ability: Poor Financial Resources: Fair Insight/Judgement: Poor Intellectual Ability: Fair Physical Health: Poor Social Skills: Fair Stability in Family: Fair Stability in School/Work: Fair Verbal Skills: Fair Discharge Criteria Discharge Criteria: Adequate arrangements @DC, Verbal commit med comply, Improved behavior, Improved mood/thought Preliminary Discharge Plan Preliminary DC Plan: Current Living Arrange. Special Precautions Special Precautions: Agitation/Assault Fall Risk: Moderate Initial D/C Plan Plan is to return to [facility] once stable. Identified Discharge Needs: Possibly HH with PT/OT and psychiatry follow-up. Currently Utilized Resources Currently Utilized Resources/P: PCP-Dr. Rodriguez Facility-[facility] Dtr-in-law/DPOA-Brittni gdtr/spokesperson/facility -[facility] Referrals Community Resources: Possibly HH with PT/OT and psychiatry follow-up. Identified Problems/Hx/Goals Objectives/Short-Term Goals Short Term Goals: Control abnormal behavior, Dec. Aggression, Dec. Hallucination/Delus, Dec. Outbursts, Improved Social Skills, Medication Stabilization, Monitor Med Effects, Prevent Deterioration, Promote Coping Skill Short Term Goals in Patient's: Control agitation/aggression, decrease delusions, more cooperative with cares, Avoid use of Ativan and Haldol. Interventions/Frequency Staff Interventions/Frequency&: Psychiatry to assess pt three times per week for medication management. Nursing to assess behaviors, monitor medications, and complete 15 minute checks daily. Social Work to see pt at least two times weekly to aid in return to placement. Activities to encourage pt to participate in group activities daily. History Vocational History: Never worked Education: Pt did not complete H.S. She dropped out to get . Community Follow-up Possibly HH with PT/OT and follow up with psychiatry. Community Provider/Family Inpu: Kenia who is the facility is also pt's gdtr. Brittni who is DPOA has given permission for Kenia to be pt's spokesperson. Other needed information can be obtained from Kenia as needed. Family requests that pt be taken off of Ativan as pt appeared to have adverse reactions. Family also asks that Haldol be avoided if possible, but will allow if feels it is needed. Kenia will try to participate in treatment teams. Treatment Plan Explained Patient/Reading Tutor had this treatment plan explained to him/her as indicated by the signature below and has been given the opportunity to ask questions and make suggestions: Date: Patient/Reading Tutor Signature: Status Update Update Pt treatment plan was held on 02/11/21 and entered today 02/11/21. Pt has been eating about 60% of her meals and averaging 6 hours of sleep per night. She has mostly been calm and cooperative with cares and taking medications. She has intermittent periods of refusing medications and will sometimes be irritable with cares. Pt has been fixated on another peer's Bible that he carries around thinking that it is her's when it in fact is not. Pt does collect Bibles, so according to pt's gtr, Kenia, it is not overly surprising that she gets fixated on that. Pt still has delusional thoughts about children being on the unit and looking for them. Pt's Seroquel will be discontinued and the PM dose of Zyprexa will be increased from 5mg to 7.5mg. Pt has had to receive Zyprexa Zydis PRN on an average of once a day. KYA DUMONT February 11, 2021 08:36
[2021-02-11] MEDS: FLUTICASONE/VILANTEROL 100/25 INHALER. INH SCH (09:00)
[2021-02-11] MEDS: NYSTATIN TOPICAL POWDER 15GM BOTTLE. TP SCH ×2 (09:00→19:55)
[2021-02-11] MEDS: FUROSEMIDE 20 MG TABLET PO SCH (09:00)
[2021-02-11 15:45] VITALS: BP 136/84
[2021-02-11] MEDS: OLANZapine 7.5 MG TABLET PO SCH (19:49)
[2021-02-11] MEDS: INSULIN GLARGINE SYRINGE. SQ SCH (21:05)
[2021-02-12] MEDS: ACETAMINOPHEN 325 MG TABLET PO PRN (03:49)
--- NOTE | 2021-02-12 04:57 | PN ---
DATE: 02/11/2021 SUBJECTIVE: The patient was seen today, met with the staff, chart reviewed. The patient continues to have some delusional behaviors and periods of agitation and confusion, wanting to call the police. The patient also receiving p.r.n. Zyprexa to decrease her level of anxiety and agitation. OBSERVATION: VITAL SIGNS: Temperature 97.1, blood pressure 107/67, pulse 67, respirations 20, O2 sat 93%. Slept about 6 hours last night. Patient's current medications include Seroquel 25 mg daily, olanzapine 5 mg twice a day, olanzapine 2.5 mg q.2h. p.r.n. and Seroquel 50 mg at bedtime p.r.n. for agitation. Patient's Zyprexa was increased to 5 mg in the morning and 7.5 mg at night. The patient is not having any side effects of the medications. PLAN: To continue with the current treatment plan. LENGTH OF STAY: [address]: Hector TID: [id number]
[2021-02-12] MEDS: LEVOTHYROXINE 50 MCG TABLET PO SCH (05:24)
[2021-02-12 05:52] VITALS: BP 126/76
[2021-02-12] MEDS: INSULIN LISPRO 300 UNITS/3 ML VIAL. SQ SCH ×3 (08:00→17:00)
[2021-02-12] MEDS: PANTOPRAZOLE 40 MG TABLET. PO SCH (08:34)
[2021-02-12] MEDS: CYCLOBENZAPRINE 10 MG TABLET. PO SCH (08:34)
[2021-02-12] MEDS: AMIODARONE HCL 200 MG TABLET. PO SCH (08:35)
[2021-02-12] MEDS: CARVEDILOL 12.5 MG TABLET PO SCH ×2 (08:35→17:00)
[2021-02-12] MEDS: OLANZapine 5 MG TABLET PO SCH (08:35)
[2021-02-12] MEDS: FUROSEMIDE 20 MG TABLET PO SCH (08:35)
[2021-02-12] MEDS: LOSARTAN 25 MG TABLET. PO SCH (08:35)
[2021-02-12] MEDS: APIXABAN 2.5 MG TABLET PO SCH ×2 (08:36→20:26)
[2021-02-12] MEDS: PREGABALIN 75 MG CAPSULE PO SCH ×2 (08:36→20:26)
[2021-02-12] MEDS: LUBIPROSTONE 24 MCG CAPSULE PO SCH ×2 (08:36→20:27)
[2021-02-12] MEDS: POTASSIUM CHLORIDE 10 MEQ TABLET.ER. PO SCH ×2 (08:36→20:26)
[2021-02-12] MEDS: NYSTATIN TOPICAL POWDER 15GM BOTTLE. TP SCH ×2 (09:00→20:27)
[2021-02-12] MEDS: FLUTICASONE/VILANTEROL 100/25 INHALER. INH SCH (09:00)
[2021-02-12 15:48] VITALS: BP 111/73
[2021-02-12] MEDS: OLANZapine 7.5 MG TABLET PO SCH (20:27)
[2021-02-12] MEDS: INSULIN GLARGINE SYRINGE. SQ SCH (21:00)
--- NOTE | 2021-02-13 01:42 | PN ---
DATE: 02/12/2021 SUBJECTIVE: The patient was seen today, met with the staff. Chart reviewed and also covering for Dr. Brothers. The patient continues to exhibit delusional behaviors, agitation, and confusion and wanting to call the police often. The patient continues to receive p.r.n. medications to decrease her agitation and psychosis. OBSERVATION: VITAL SIGNS: Temperature 97.8, blood pressure 126/78, pulse 60, respirations 16, O2 sat 96%. Slept about 5 hours last night. The patient's appetite is fair. The patient's lab reviewed. The patient's medications reviewed. Currently, she is not having any side effects to medications. ASSESSMENT: Major neurocognitive disorder, most likely Alzheimer's, vascular with delusions, depression and behavioral disturbances. PLAN: Continue with the current treatment plan. LENGTH OF STAY: 7 days. HIWOT/ERIK/BRENNAN DR: Hector TID: [id number]
[2021-02-13] MEDS: LEVOTHYROXINE 50 MCG TABLET PO SCH (05:54)
[2021-02-13 05:57] VITALS: BP 109/73
[2021-02-13] MEDS: INSULIN LISPRO 300 UNITS/3 ML VIAL. SQ SCH ×3 (08:00→17:00)
[2021-02-13] MEDS: LUBIPROSTONE 24 MCG CAPSULE PO SCH ×2 (09:00→20:35)
[2021-02-13] MEDS: NYSTATIN TOPICAL POWDER 15GM BOTTLE. TP SCH ×2 (09:00→20:34)
[2021-02-13] MEDS: AMIODARONE HCL 200 MG TABLET. PO SCH (09:13)
[2021-02-13] MEDS: LOSARTAN 25 MG TABLET. PO SCH (09:13)
[2021-02-13] MEDS: CYCLOBENZAPRINE 10 MG TABLET. PO SCH (09:13)
[2021-02-13] MEDS: APIXABAN 2.5 MG TABLET PO SCH ×2 (09:13→20:34)
[2021-02-13] MEDS: OLANZapine 5 MG TABLET PO SCH (09:14)
[2021-02-13] MEDS: CARVEDILOL 12.5 MG TABLET PO SCH ×3 (09:14→17:27)
[2021-02-13] MEDS: POTASSIUM CHLORIDE 10 MEQ TABLET.ER. PO SCH ×2 (09:14→20:35)
[2021-02-13] MEDS: FUROSEMIDE 20 MG TABLET PO SCH (09:14)
[2021-02-13] MEDS: PANTOPRAZOLE 40 MG TABLET. PO SCH (09:14)
[2021-02-13] MEDS: ACETAMINOPHEN 325 MG TABLET PO PRN (09:14)
[2021-02-13] MEDS: FLUTICASONE/VILANTEROL 100/25 INHALER. INH SCH (09:15)
[2021-02-13] MEDS: PREGABALIN 75 MG CAPSULE PO SCH ×2 (09:15→20:34)
[2021-02-13 15:55] VITALS: BP 120/77
[2021-02-13] MEDS: OLANZapine 7.5 MG TABLET PO SCH (20:34)
[2021-02-13] MEDS: INSULIN GLARGINE SYRINGE. SQ SCH (21:00)
--- NOTE | 2021-02-13 23:26 | PN ---
DATE: 02/13/2021 SUBJECTIVE: The patient was seen today, met with the staff, chart reviewed. The patient is currently on a wheelchair. The patient is also hallucinating visually and auditorily ____ in conversation and also looking for a little boy in the attic. The patient is difficult to redirect. Staff reports she is medication compliant in the morning, confused and irritable most of the day. OBSERVATION: VITAL SIGNS: Temperature 97.8, blood pressure 158/84, pulse 104, respirations 20, O2 sat 93%. Slept about 6 hours last night. MEDICATIONS: The patient's medications reviewed, lab reviewed. ASSESSMENT: Major neurocognitive disorder, most likely Alzheimer's, vascular with delusions, depression and behavioral disturbances. PLAN: To continue with the treatment plan. LENGTH OF STAY: Five to seven days. HIWOT/GREG/LM DR: Hector TID: [id number]
[2021-02-14 05:52] VITALS: BP 138/79
[2021-02-14] MEDS: LEVOTHYROXINE 50 MCG TABLET PO SCH (06:13)
[2021-02-14] MEDS: INSULIN LISPRO 300 UNITS/3 ML VIAL. SQ SCH ×3 (08:00→17:00)
[2021-02-14] MEDS: LUBIPROSTONE 24 MCG CAPSULE PO SCH ×2 (09:00→20:20)
[2021-02-14] MEDS: NYSTATIN TOPICAL POWDER 15GM BOTTLE. TP SCH ×2 (09:00→20:20)
[2021-02-14] MEDS: PANTOPRAZOLE 40 MG TABLET. PO SCH (09:20)
[2021-02-14] MEDS: OLANZapine 5 MG TABLET PO SCH (09:20)
[2021-02-14] MEDS: APIXABAN 2.5 MG TABLET PO SCH ×2 (09:20→20:19)
[2021-02-14] MEDS: CARVEDILOL 12.5 MG TABLET PO SCH ×2 (09:21→17:22)
[2021-02-14] MEDS: FUROSEMIDE 20 MG TABLET PO SCH (09:22)
[2021-02-14] MEDS: POTASSIUM CHLORIDE 10 MEQ TABLET.ER. PO SCH ×2 (09:22→20:19)
[2021-02-14] MEDS: LOSARTAN 25 MG TABLET. PO SCH (09:22)
[2021-02-14] MEDS: AMIODARONE HCL 200 MG TABLET. PO SCH (09:22)
[2021-02-14] MEDS: CYCLOBENZAPRINE 10 MG TABLET. PO SCH (09:22)
[2021-02-14] MEDS: FLUTICASONE/VILANTEROL 100/25 INHALER. INH SCH (09:23)
[2021-02-14] MEDS: PREGABALIN 75 MG CAPSULE PO SCH ×2 (09:23→20:19)
[2021-02-14 15:49] VITALS: BP 120/80
[2021-02-14] MEDS: OLANZapine 7.5 MG TABLET PO SCH (20:19)
[2021-02-14] MEDS: INSULIN GLARGINE SYRINGE. SQ SCH (21:00)
[2021-02-14] MEDS: QUEtiapine 50 MG TABLET. PO PRN (22:12)
--- NOTE | 2021-02-15 03:01 | PN ---
DATE: 02/14/2021 SUBJECTIVE: The patient was seen today and met with the staff, chart reviewed and also covering for Dr. Brothers. The patient continues to be irritable, refusing her medications; also resistant to care. The patient also hallucinating visually and auditorily. OBSERVATION: VITAL SIGNS: Temperature 96.8, blood pressure 138/79, pulse 105, respirations 16, O2 sat 93%. Slept about 5 hours last night. The patient's appetite is fair. The patient's medications reviewed and also lab reviewed. The patient is not having any side effects to medications. ASSESSMENT: Major neurocognitive disorder, most likely Alzheimer's, vascular with delusions, depression and behavioral disturbances. LENGTH OF STAY: Five to [address]: Hector TID: [id number]
[2021-02-15] MEDS: LEVOTHYROXINE 50 MCG TABLET PO SCH (05:43)
[2021-02-15 06:00] VITALS: BP 111/72
[2021-02-15 07:55] LABS: BASO % 1 % (0-3); EOS # 0.1 x10^3/uL (0.0-0.7); EOS % 2 % (0-3); HEMATOCRIT 40.5 % (36.0-47.0); HEMOGLOBIN 12.9 g/dL (12.0-15.5); LYMPH # 1.4 x10^3/uL (1.0-4.8); LYMPH % 31 % (24-48); MEAN CORPUSCULAR HEMOGLOBIN 30 pg (25-35); MEAN CORPUSCULAR HGB CONC 32 g/dL (31-37); MEAN CORPUSCULAR VOLUME 94 fL (79-100); MONO # 0.4 x10^3/uL (0.0-1.1); MONO % 9 % (0-9); NEUT # 2.7 x10^3uL (1.8-7.7); NEUT % 57 % (31-73); PLATELET COUNT 167 x10^3/uL (140-400); RED CELL DISTRIBUTION WIDTH 17.9 % (11.5-14.5); WHITE BLOOD COUNT 4.6 x10^3/uL (4.0-11.0)
[2021-02-15] MEDS: INSULIN LISPRO 300 UNITS/3 ML VIAL. SQ SCH ×3 (08:00→17:00)
[2021-02-15 08:17] LABS: ALBUMIN 2.8 g/dL (3.4-5.0); ALBUMIN/GLOBULIN RATIO 0.7 (1.0-1.7); CALCIUM 8.9 mg/dL (8.5-10.1); CREATININE 1.1 mg/dL (0.6-1.0); GFR 47.3; POTASSIUM 4.1 mmol/L (3.5-5.1); TOTAL BILIRUBIN 0.4 mg/dL (0.2-1.0); TOTAL PROTEIN 6.8 g/dL (6.4-8.2)
[2021-02-15] MEDS: NYSTATIN TOPICAL POWDER 15GM BOTTLE. TP SCH ×2 (09:00→20:26)
[2021-02-15] MEDS: LUBIPROSTONE 24 MCG CAPSULE PO SCH ×2 (09:00→20:15)
[2021-02-15] MEDS: OLANZapine 5 MG TABLET PO SCH (09:22)
[2021-02-15] MEDS: LOSARTAN 25 MG TABLET. PO SCH (09:22)
[2021-02-15] MEDS: APIXABAN 2.5 MG TABLET PO SCH ×2 (09:23→20:15)
[2021-02-15] MEDS: FUROSEMIDE 20 MG TABLET PO SCH (09:23)
[2021-02-15] MEDS: CARVEDILOL 12.5 MG TABLET PO SCH ×2 (09:23→17:05)
[2021-02-15] MEDS: CYCLOBENZAPRINE 10 MG TABLET. PO SCH (09:23)
[2021-02-15] MEDS: AMIODARONE HCL 200 MG TABLET. PO SCH (09:23)
[2021-02-15] MEDS: PREGABALIN 75 MG CAPSULE PO SCH ×2 (09:24→20:15)
[2021-02-15] MEDS: PANTOPRAZOLE 40 MG TABLET. PO SCH (09:24)
[2021-02-15] MEDS: POTASSIUM CHLORIDE 10 MEQ TABLET.ER. PO SCH ×2 (09:24→20:15)
[2021-02-15] MEDS: FLUTICASONE/VILANTEROL 100/25 INHALER. INH SCH (09:25)
[2021-02-15 18:45] VITALS: BP 115/71
[2021-02-15] MEDS: OLANZapine 7.5 MG TABLET PO SCH (20:15)
[2021-02-15] MEDS: INSULIN GLARGINE SYRINGE. SQ SCH (20:25)
[2021-02-16 05:45] VITALS: BP 102/58
[2021-02-16] MEDS: LEVOTHYROXINE 50 MCG TABLET PO SCH (06:08)
[2021-02-16] MEDS: INSULIN LISPRO 300 UNITS/3 ML VIAL. SQ SCH ×3 (08:00→17:00)
[2021-02-16] MEDS: CYCLOBENZAPRINE 10 MG TABLET. PO SCH (08:59)
[2021-02-16] MEDS: LUBIPROSTONE 24 MCG CAPSULE PO SCH ×2 (09:00→20:27)
[2021-02-16] MEDS: LOSARTAN 25 MG TABLET. PO SCH (09:00)
[2021-02-16] MEDS: FUROSEMIDE 20 MG TABLET PO SCH (09:00)
[2021-02-16] MEDS: NYSTATIN TOPICAL POWDER 15GM BOTTLE. TP SCH ×2 (09:00→20:26)
[2021-02-16] MEDS: CARVEDILOL 12.5 MG TABLET PO SCH ×2 (09:00→17:00)
[2021-02-16] MEDS: PANTOPRAZOLE 40 MG TABLET. PO SCH (09:00)
[2021-02-16] MEDS: APIXABAN 2.5 MG TABLET PO SCH ×2 (09:01→20:26)
[2021-02-16] MEDS: POTASSIUM CHLORIDE 10 MEQ TABLET.ER. PO SCH ×2 (09:01→20:26)
[2021-02-16] MEDS: PREGABALIN 75 MG CAPSULE PO SCH ×2 (09:01→20:26)
[2021-02-16] MEDS: OLANZapine 5 MG TABLET PO SCH (09:01)
[2021-02-16] MEDS: AMIODARONE HCL 200 MG TABLET. PO SCH (09:01)
[2021-02-16] MEDS: FLUTICASONE/VILANTEROL 100/25 INHALER. INH SCH (09:02)
[2021-02-16 16:00] VITALS: BP 135/75
[2021-02-16] MEDS: INSULIN GLARGINE SYRINGE. SQ SCH (20:23)
[2021-02-16] MEDS: OLANZapine 7.5 MG TABLET PO SCH (20:26)
--- NOTE | 2021-02-17 00:15 | PN ---
DATE: 02/16/2021 DATE OF SERVICE: 02/16/2021. SUBJECTIVE: The patient was seen today, met with the staff. Chart was reviewed and also covering for Dr. Brothers. Staff reports no major problems today. She has been pleasant and medication compliant and continues to pace on wheelchair and no major behavior problems today. The patient continues to talk to herself and also experiencing visual and auditory hallucinations at times. OBSERVATION: VITAL SIGNS: Temperature 96.8, blood pressure 102/58, pulse 60, respirations 18, O2 sat 94%. Slept about 6-1/2 hours last night. The patient's appetite is fair. The patient's medications reviewed and also lab reviewed. ASSESSMENT: Major neurocognitive disorder, most likely Alzheimer's, vascular with delusions, depression and behavioral disturbances. LENGTH OF STAY: Seven days. GOYO DR: Hector TID: [id number]
--- NOTE | 2021-02-17 00:20 | PN ---
DATE: 02/15/2021 This is a late entry for the service date 02/15/2021 by Telehealth. SUBJECTIVE: The patient was seen today, discussed with the staff and chart reviewed. The patient continues to have behavior problems, currently pacing on wheelchair, also delusional at times. The patient also irritable, sullivan, tend to be combative at times. Staff reports fluctuating symptoms, behavior changes. The patient also confused most of the time. OBSERVATION: VITAL SIGNS: Stable. GENERAL: The patient is not having any falls. No major physical problems. The patient is sleeping fairly well. The patient's medications reviewed and also lab reviewed. ASSESSMENT: Major neurocognitive disorder, most likely Alzheimer's, vascular with delusions, depression and behavioral disturbances. LENGTH OF STAY: Five to seven days. WILFREDO DR: Hector TID: [id number]
[2021-02-17 05:39] VITALS: BP 106/61
[2021-02-17] MEDS: LEVOTHYROXINE 50 MCG TABLET PO SCH (06:00)
[2021-02-17] MEDS: INSULIN LISPRO 300 UNITS/3 ML VIAL. SQ SCH ×3 (08:00→17:00)
[2021-02-17] MEDS: PREGABALIN 75 MG CAPSULE PO SCH ×2 (08:36→20:00)
[2021-02-17] MEDS: AMIODARONE HCL 200 MG TABLET. PO SCH (08:36)
[2021-02-17] MEDS: LOSARTAN 25 MG TABLET. PO SCH (08:36)
[2021-02-17] MEDS: PANTOPRAZOLE 40 MG TABLET. PO SCH (08:37)
[2021-02-17] MEDS: APIXABAN 2.5 MG TABLET PO SCH ×2 (08:37→20:00)
[2021-02-17] MEDS: FUROSEMIDE 20 MG TABLET PO SCH (08:37)
[2021-02-17] MEDS: OLANZapine 5 MG TABLET PO SCH (08:37)
[2021-02-17] MEDS: CYCLOBENZAPRINE 10 MG TABLET. PO SCH (08:37)
[2021-02-17] MEDS: POTASSIUM CHLORIDE 10 MEQ TABLET.ER. PO SCH ×2 (08:37→20:01)
[2021-02-17] MEDS: NYSTATIN TOPICAL POWDER 15GM BOTTLE. TP SCH ×2 (08:38→20:00)
[2021-02-17] MEDS: CARVEDILOL 12.5 MG TABLET PO SCH ×3 (08:38→17:41)
[2021-02-17] MEDS: FLUTICASONE/VILANTEROL 100/25 INHALER. INH SCH (08:38)
[2021-02-17] MEDS: LUBIPROSTONE 24 MCG CAPSULE PO SCH ×2 (08:43→20:00)
--- NOTE | 2021-02-17 13:22 | TX PLAN ---
Interdisciplinary Tx Plan Admission Information February 02, 2021 at 10:15 Legal Status (on Admission): Voluntary DPOA/Guardian Name: Brittni Pak dtr-in-law Contact Other Contact Name: Kenia Win is the SW at facility plus pt's gdtr Other Contact Phone: [phone] Verified Code Status: DNR Allergies: Coded Allergies: tetanus immune globulin (Verified Allergy, Intermediate, 02/11/21) Penicillins (Verified Allergy, Unknown, 02/02/21) codeine (Verified Allergy, Unknown, 02/02/21) felodipine (Verified Allergy, Unknown, 02/02/21) naproxen (Verified Allergy, Unknown, 02/02/21) Diagnoses Primary Diagnosis: Major neurocognitive disorder, Alzheimer, vascular with delusion, depression, behavioral disturbance, anxiety disorder, unspecified; impulse control disorder, unspecified. Reasons for Admission: Aggressive, Delusions, Agitated, Angry, Combative, Confusion/Disoriented Problem in Patient's Words: Pt not cooperative with psychosocial assessement and doesn't want to talk. She just wants her discharge papers. Per pt spokes person, who is pt's gdtr, Kenia, the above information is accurate as Kenia is the psych social worker from pt's living facility. Kenia adds that pt is very delusional and adds from the above delusional beliefs that pt thinks that she is in a relationship with a black man named Napoleon and that Napoleon is her everything. 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 So, it's possible that some of her delusions are actual associations to her past. Additional Admission Comments: Per intake record, pt was refusing medication, resistive to cares, attempts to elope, restless, sundowning, combative toward staff-kicked staff in [place], yelling, thinks house is on fire, delusional-thinks babies on 2nd floor are being taught to have sex. Problems Active Problems: Delusions, agitation, resistive to cares, confusion, anger Inactive Problems: None noted at this time Pt Strengths/Limitations Ability for [place]: Poor Cognitive Functioning/Ability: Fair Communication Skills/Ability: Poor Financial Resources: Fair Insight/Judgement: Poor Intellectual Ability: Fair Physical Health: Poor Social Skills: Fair Stability in Family: Fair Stability in School/Work: Fair Verbal Skills: Fair Discharge Criteria Discharge Criteria: Adequate arrangements @DC, Verbal commit med comply, Improved behavior, Improved mood/thought Preliminary Discharge Plan Preliminary DC Plan: Current Living Arrange. Special Precautions Special Precautions: Agitation/Assault Fall Risk: Moderate Initial D/C Plan Plan is to return to [facility] once stable. Identified Discharge Needs: Possibly HH with PT/OT and psychiatry follow-up. Currently Utilized Resources Currently Utilized Resources/P: PCP-Dr. Rodriguez Facility-[facility] Dtr-in-law/DPOA-Brittni gdtr/spokesperson/facility -[facility] Referrals Community Resources: Possibly HH with PT/OT and psychiatry follow-up. Identified Problems/Hx/Goals Objectives/Short-Term Goals Short Term Goals: Control abnormal behavior, Dec. Aggression, Dec. Hallucination/Delus, Dec. Outbursts, Improved Social Skills, Medication Stabilization, Monitor Med Effects, Prevent Deterioration, Promote Coping Skill Short Term Goals in Patient's: Control agitation/aggression, decrease delusions, more cooperative with cares, Avoid use of Ativan and Haldol. Interventions/Frequency Staff Interventions/Frequency&: Psychiatry to assess pt three times per week for medication management. Nursing to assess behaviors, monitor medications, and complete 15 minute checks daily. Social Work to see pt at least two times weekly to aid in return to placement. Activities to encourage pt to participate in group activities daily. History Vocational History: Never worked Education: Pt did not complete H.S. She dropped out to get . Community Follow-up Possibly HH with PT/OT and follow up with psychiatry. Community Provider/Family Inpu: Kenia who is the facility is also pt's gdtr. Brittni who is DPOA has given permission for Kenia to be pt's spokesperson. Other needed information can be obtained from Kenia as needed. Family requests that pt be taken off of Ativan as pt appeared to have adverse reactions. Family also asks that Haldol be avoided if possible, but will allow if feels it is needed. Kenia will try to participate in treatment teams. 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 Pt continues to have intermittent periods of refusing medicatio ns and needs multiple prompts or coaxing. She, also, has had a few periods of combativeness. She has been exhibiting visual and auditory hallucinations. When asked who she is talking to, she will point to an empty chair. Pt paces around in her wheelchair much of the time, mumbling about things that aren't really happening around her. She looks around and yells out continuously for her son Sandrine. Regarding orientation, she is mostly non-redirectable and will become irritable and angry if trying to persuade her. Pt on average has been taking PRNs daily and has to have 3 to 4 people to give her the medications. Pt will continue treatment with ongoing monitoring for further medication adjustments. Pt will d/c back to [facility] once stable. KYA DUMONT February 17, 2021 13:22
[2021-02-17 19:46] VITALS: BP 158/85
[2021-02-17] MEDS: OLANZapine 7.5 MG TABLET PO SCH (20:01)
--- NOTE | 2021-02-17 22:09 | PN ---
DATE: 02/17/2021 SUBJECTIVE: The patient was seen today, met with the staff, chart was reviewed and also participated in the treatment review meeting. Staff reports continued behavior problems, argumentative, resistive to care. Still delusional and paranoid. OBSERVATION: VITAL SIGNS: Temperature 97.1, blood pressure 141/91, pulse 72, respirations 20, O2 sat 96%. GENERAL: Slept about 6 hours last night. CURRENT MEDICATIONS: The patient's medications reviewed, not having any side effects to medications. LABORATORY DATA: The patient's lab reviewed. ASSESSMENT: Major neurocognitive disorder, most likely Alzheimer's, vascular with delusions, depression and behavioral disturbances. LENGTH OF STAY: Five to seven days. SEKOU DR: Hector TID: [id number]
[2021-02-18] MEDS: LEVOTHYROXINE 50 MCG TABLET PO SCH (05:26)
[2021-02-18 05:58] VITALS: BP 131/87
[2021-02-18] MEDS: APIXABAN 2.5 MG TABLET PO SCH ×2 (08:25→20:05)
[2021-02-18] MEDS: OLANZapine 5 MG TABLET PO SCH (08:26)
[2021-02-18] MEDS: FUROSEMIDE 20 MG TABLET PO SCH (08:26)
[2021-02-18] MEDS: PANTOPRAZOLE 40 MG TABLET. PO SCH (08:26)
[2021-02-18] MEDS: CARVEDILOL 12.5 MG TABLET PO SCH ×2 (08:26→17:21)
[2021-02-18] MEDS: PREGABALIN 75 MG CAPSULE PO SCH ×2 (08:26→20:04)
[2021-02-18] MEDS: POTASSIUM CHLORIDE 10 MEQ TABLET.ER. PO SCH ×2 (08:26→20:05)
[2021-02-18] MEDS: CYCLOBENZAPRINE 10 MG TABLET. PO SCH (08:27)
[2021-02-18] MEDS: LUBIPROSTONE 24 MCG CAPSULE PO SCH ×2 (08:27→20:04)
[2021-02-18] MEDS: AMIODARONE HCL 200 MG TABLET. PO SCH (08:27)
[2021-02-18] MEDS: LOSARTAN 25 MG TABLET. PO SCH (08:27)
[2021-02-18] MEDS: NYSTATIN TOPICAL POWDER 15GM BOTTLE. TP SCH ×2 (08:28→20:05)
[2021-02-18] MEDS: INSULIN LISPRO 300 UNITS/3 ML VIAL. SQ SCH ×3 (08:28→17:00)
[2021-02-18] MEDS: FLUTICASONE/VILANTEROL 100/25 INHALER. INH SCH (08:28)
[2021-02-18 15:38] VITALS: BP 137/77
[2021-02-18] MEDS: OLANZapine 7.5 MG TABLET PO SCH (20:04)
--- NOTE | 2021-02-18 23:43 | PN ---
DATE: 02/18/2021 DATE OF SERVICE: 02/18/2021 SUBJECTIVE: The patient was seen today, met with the staff. Chart was reviewed and covering for Dr. Brothers. Staff reports still delusional, but much calmer today and also medication compliant. OBSERVATION: VITAL SIGNS: Temperature 96.7, blood pressure 131/87, pulse 67, respirations 18, O2 sat 97%. GENERAL: Slept about 5 hours last night. The patient's appetite is fair. MEDICATIONS: The patient's medications reviewed. No side effects. LABORATORY DATA: The patient's lab reviewed. ASSESSMENT: Major neurocognitive disorder, most likely Alzheimer's, vascular with delusions, depression and behavioral disturbances. LENGTH OF STAY: Five to seven days. GOYO DR: Hector TID: [id number]
[2021-02-19] MEDS: LEVOTHYROXINE 50 MCG TABLET PO SCH (05:39)
[2021-02-19 06:10] VITALS: BP 101/59
[2021-02-19] MEDS: INSULIN LISPRO 300 UNITS/3 ML VIAL. SQ SCH ×3 (08:00→17:00)
[2021-02-19] MEDS: CARVEDILOL 12.5 MG TABLET PO SCH ×2 (08:00→19:31)
[2021-02-19] MEDS: NYSTATIN TOPICAL POWDER 15GM BOTTLE. TP SCH ×2 (08:37→19:32)
[2021-02-19] MEDS: FLUTICASONE/VILANTEROL 100/25 INHALER. INH SCH (08:37)
[2021-02-19] MEDS: AMIODARONE HCL 200 MG TABLET. PO SCH (08:38)
[2021-02-19] MEDS: FUROSEMIDE 20 MG TABLET PO SCH (08:39)
[2021-02-19] MEDS: POTASSIUM CHLORIDE 10 MEQ TABLET.ER. PO SCH ×2 (08:39→19:31)
[2021-02-19] MEDS: CYCLOBENZAPRINE 10 MG TABLET. PO SCH (08:39)
[2021-02-19] MEDS: APIXABAN 2.5 MG TABLET PO SCH ×2 (08:39→19:31)
[2021-02-19] MEDS: PANTOPRAZOLE 40 MG TABLET. PO SCH (08:39)
[2021-02-19] MEDS: PREGABALIN 75 MG CAPSULE PO SCH ×2 (08:40→19:31)
[2021-02-19] MEDS: LUBIPROSTONE 24 MCG CAPSULE PO SCH ×2 (08:41→19:31)
[2021-02-19] MEDS: OLANZapine 5 MG TABLET PO SCH (08:42)
[2021-02-19] MEDS: LOSARTAN 25 MG TABLET. PO SCH (08:42)
[2021-02-19 15:58] VITALS: BP 145/82
[2021-02-19] MEDS: QUEtiapine 50 MG TABLET. PO PRN (19:31)
[2021-02-19] MEDS: OLANZapine 7.5 MG TABLET PO SCH (19:32)
--- NOTE | 2021-02-20 02:19 | PN ---
DATE: 02/19/2021 SUBJECTIVE: The patient was seen today, met with the staff, and chart reviewed. Staff reports continued behavior problems. She is being delusional, tend to talk to herself. Staff observed to be hallucinating, mostly visual, seeing cats and child around her. The patient otherwise has not presented with any major behavior problems today. OBSERVATION: VITAL SIGNS: Temperature 96.5, blood pressure 101/59, pulse 64, respirations 16, and O2 sat 97%. GENERAL: Slept about 6 hours last night. The patient's appetite is fair. CURRENT MEDICATIONS: The patient's medications reviewed and not having any side effects. LABORATORY DATA: The patient's lab reviewed. ASSESSMENT: Major neurocognitive disorder, most likely Alzheimer's, vascular with the delusions, depression, and behavioral disturbances. LENGTH OF STAY: Four to five days. HIWOT/ERIK/LM DR: Hector TID: [id number]
[2021-02-20] MEDS: LEVOTHYROXINE 50 MCG TABLET PO SCH (05:22)
[2021-02-20] MEDS: ACETAMINOPHEN 325 MG TABLET PO PRN (05:22)
[2021-02-20 05:56] VITALS: BP 130/77
[2021-02-20] MEDS: INSULIN LISPRO 300 UNITS/3 ML VIAL. SQ SCH ×3 (08:00→17:00)
[2021-02-20 08:04] LABS: BILIRUBIN,URINE NEG (NEG); CLARITY,URINE CLEAR; COLOR,URINE YELLOW; GLUCOSE,URINE NEG (NEG); NITRITE,URINE NEG (NEG)
[2021-02-20 08:05] LABS: BACTERIA,URINE FEW /HPF (0-FEW); RBC,URINE 0 /HPF (0-2)
[2021-02-20] MEDS: NYSTATIN TOPICAL POWDER 15GM BOTTLE. TP SCH ×2 (08:19→21:42)
[2021-02-20] MEDS: FLUTICASONE/VILANTEROL 100/25 INHALER. INH SCH (08:19)
[2021-02-20] MEDS: PANTOPRAZOLE 40 MG TABLET. PO SCH (08:19)
[2021-02-20] MEDS: APIXABAN 2.5 MG TABLET PO SCH ×3 (08:20→21:42)
[2021-02-20] MEDS: AMIODARONE HCL 200 MG TABLET. PO SCH (08:20)
[2021-02-20] MEDS: PREGABALIN 75 MG CAPSULE PO SCH ×3 (08:20→21:44)
[2021-02-20] MEDS: LOSARTAN 25 MG TABLET. PO SCH (08:20)
[2021-02-20] MEDS: OLANZapine 5 MG TABLET PO SCH (08:21)
[2021-02-20] MEDS: FUROSEMIDE 20 MG TABLET PO SCH (08:21)
[2021-02-20] MEDS: LUBIPROSTONE 24 MCG CAPSULE PO SCH ×2 (08:21→21:00)
[2021-02-20] MEDS: CARVEDILOL 12.5 MG TABLET PO SCH ×2 (08:21→17:00)
[2021-02-20] MEDS: CYCLOBENZAPRINE 10 MG TABLET. PO SCH (08:21)
[2021-02-20] MEDS: POTASSIUM CHLORIDE 10 MEQ TABLET.ER. PO SCH ×3 (08:21→21:42)
[2021-02-20] MEDS: FLUTICASONE 50MCG/NASAL SPRAY 16GM BOTTLE. NS SCH (08:22)
[2021-02-20] MEDS: OLANZapine 7.5 MG TABLET PO SCH ×2 (21:00→21:42)
--- NOTE | 2021-02-21 00:51 | PN ---
DATE: 02/20/2021 SUBJECTIVE: The patient was seen today, met with the staff, chart reviewed. The patient's behavior remains the same. She is continuously talking to herself, hyperverbal, talking to imaginary figures and also having visual hallucinations. The patient also gets angry easily and irritated and verbally abusive towards other residents at times. OBSERVATION: VITAL SIGNS: Temperature 97.7, blood pressure 156/68, pulse 96, respirations 20, O2 sat 96%. GENERAL: Slept about 7 hours last night. The patient's appetite is fair. CURRENT MEDICATIONS: The patient's medications reviewed. Currently, not having any side effects. LABORATORY DATA: The patient's lab reviewed. ASSESSMENT: Major neurocognitive disorder, most likely Alzheimer's versus vascular with delusions, depression and behavioral disturbances. LENGTH OF STAY: Four to five days. WILFREDO DR: Hector TID: [id number]
[2021-02-21] MEDS: LEVOTHYROXINE 50 MCG TABLET PO SCH (05:17)
[2021-02-21] MEDS: ACETAMINOPHEN 325 MG TABLET PO PRN (05:17)
[2021-02-21] MEDS: FLUTICASONE 50MCG/NASAL SPRAY 16GM BOTTLE. NS SCH (05:20)
[2021-02-21 05:34] VITALS: BP 148/78
[2021-02-21] MEDS: INSULIN LISPRO 300 UNITS/3 ML VIAL. SQ SCH ×3 (08:00→17:00)
[2021-02-21] MEDS: FUROSEMIDE 20 MG TABLET PO SCH (08:44)
[2021-02-21] MEDS: AMIODARONE HCL 200 MG TABLET. PO SCH (08:45)
[2021-02-21] MEDS: LOSARTAN 25 MG TABLET. PO SCH (08:45)
[2021-02-21] MEDS: PREGABALIN 75 MG CAPSULE PO SCH ×2 (08:45→21:00)
[2021-02-21] MEDS: APIXABAN 2.5 MG TABLET PO SCH ×2 (08:46→21:00)
[2021-02-21] MEDS: POTASSIUM CHLORIDE 10 MEQ TABLET.ER. PO SCH ×2 (08:46→21:00)
[2021-02-21] MEDS: CYCLOBENZAPRINE 10 MG TABLET. PO SCH (08:47)
[2021-02-21] MEDS: PANTOPRAZOLE 40 MG TABLET. PO SCH (08:47)
[2021-02-21] MEDS: OLANZapine 5 MG TABLET PO SCH (08:47)
[2021-02-21] MEDS: CARVEDILOL 12.5 MG TABLET PO SCH ×2 (08:48→17:00)
[2021-02-21] MEDS: FLUTICASONE/VILANTEROL 100/25 INHALER. INH SCH (08:48)
[2021-02-21] MEDS: NYSTATIN TOPICAL POWDER 15GM BOTTLE. TP SCH ×2 (08:48→21:00)
[2021-02-21] MEDS: LUBIPROSTONE 24 MCG CAPSULE PO SCH ×2 (08:48→21:00)
[2021-02-21 15:38] VITALS: BP 116/72
--- NOTE | 2021-02-21 21:50 | PDOC ---
Exam Note: Jose Daniel Note: Please also refer to the separate dictated note~for this date of service dictated separately.~Patient seen individually. Discussed the patient with Nursing staff reviewed the chart.~Reviewed interim history and current functioning. Reviewed vital signs,~Labs/ Radiology~and current medications noted below. Continue current treatment with the changes noted in the dictated addendum note Assessment: Vital Signs/I&O: Vital Signs Date Time Temp Pulse Resp B/P (MAP) Pulse Ox O2 Delivery O2 Flow Rate FiO2 02/21/21 17:00 64 116/72 02/21/21 15:38 97.2 18 96 02/20/21 05:56 Room Air I & O 02/20/21 02/20/21 02/21/21 14:59 22:59 06:59 Intake Total 770 ml 120 ml Balance 770 ml 120 ml Labs: Laboratory Tests Test 02/21/21 07:45 02/21/21 12:00 02/21/21 16:48 02/21/21 19:19 Glucose (Fingerstick) 81 mg/dL (70-99) 104 mg/dL (70-99) H 108 mg/dL (70-99) H 113 mg/dL (70-99) H Current Medications: Meds: Laboratory Tests Test 02/21/21 07:45 02/21/21 12:00 02/21/21 16:48 02/21/21 19:19 Glucose (Fingerstick) 81 mg/dL 104 mg/dL 108 mg/dL 113 mg/dL Current Medications Medications (Trade) Dose Ordered Sig/Meet Route PRN Reason Start Time Stop Time Status Last Admin Dose Admin Acetaminophen (Tylenol) 650 mg PRN Q6HRS PRN PO MILD PAIN / TEMP > 100.3'F 02/02/21 11:00 02/21/21 05:17 Multi-Ingredient Ointment (Analgesic [place]) 1 vu PRN QID PRN TP MUSCLE PAIN 02/02/21 11:00 Al Hydroxide/Mg Hydroxide (Mylanta Plus Xs) 15 ml PRN AFTMEALHC PRN PO DYSPEPSIA 02/02/21 11:00 Magnesium Hydroxide (Milk Of Magnesia) 2,400 mg PRN QHS PRN PO 2ND CHOICE CONSTIPATION 02/02/21 11:00 02/12/21 05:24 Acetaminophen (Tylenol) 650 mg PRN Q6HRS PRN PO pain or fever 02/02/21 13:45 UNV Amiodarone HCl (Cordarone) 200 mg DAILY PO 02/03/21 09:00 02/21/21 08:45 Apixaban (Eliquis) 2.5 mg BID PO 02/02/21 21:00 02/21/21 08:46 Carvedilol (Coreg) 12.5 mg BIDWMEALS PO 02/02/21 17:00 02/21/21 08:48 Cyclobenzaprine HCl (Flexeril) 10 mg DAILY PO 02/03/21 09:00 02/21/21 08:47 Fluconazole (Diflucan) 100 mg DAILY PO 02/03/21 09:00 02/07/21 09:30 DC 02/07/21 08:39 Furosemide (Lasix) 40 mg DAILY PO 02/03/21 09:00 02/02/21 16:16 DC Haloperidol (Haldol) 1 mg DAILY PO 02/03/21 09:00 02/03/21 14:19 DC 02/03/21 08:55 Hyoscyamine (Anaspaz) 0.125 mg PRN Q8HRS PRN PO GI SYMPTOMS 02/02/21 13:45 Levothyroxine Sodium (Synthroid) 50 mcg DAILY06 PO 02/03/21 06:00 02/21/21 05:17 Lorazepam (Ativan) 1 mg 1500 PO 02/02/21 15:00 02/03/21 14:19 DC 02/02/21 16:43 Losartan Potassium (Cozaar) 50 mg DAILY PO 02/03/21 09:00 02/02/21 16:16 DC Lubiprostone (Amitiza) 24 mcg BID PO 02/02/21 21:00 02/21/21 08:48 Nystatin (Nystop) 1 vu PRN DAILY PRN TP YEAST UNDER BREAST 02/02/21 13:45 02/08/21 22:44 DC 02/08/21 10:17 Olanzapine (ZyPREXA) 5 mg BID PO 02/02/21 21:00 02/10/21 11:12 DC 02/10/21 08:33 Potassium Chloride (Klor-Con) 10 meq BID PO 02/02/21 21:00 02/21/21 08:46 Pregabalin (Lyrica) 75 mg BID PO 02/02/21 21:00 02/21/21 08:45 Quetiapine Fumarate (SEROquel) 50 mg PRN QHS PRN PO AGITATION 02/02/21 13:45 02/19/21 19:31 Quetiapine Fumarate (SEROquel) 25 mg DAILY PO 02/03/21 09:00 02/10/21 11:12 DC 02/10/21 08:32 Fluticasone/ Vilanterol (Breo Ellipta 100-25 Mcg) 1 puff DAILY INH 02/03/21 09:00 02/21/21 08:48 Non-Formulary Medication (Glucagon (Baqsimi)) 3 mg PRN PRN NS HYPOGLYCEMIA 02/02/21 13:45 UNV Insulin Glargine (Lantus Syringe) 8 unit QHS SQ 02/02/21 21:00 02/17/21 18:26 DC 02/11/21 21:05 Non-Formulary Medication (Insulin Lispro (Humalog)) 100 unit ACHS PRN SQ DIABETES MELLITIS 02/02/21 13:45 02/02/21 18:17 DC Pantoprazole Sodium (Protonix) 40 mg DAILY PO 02/03/21 09:00 02/21/21 08:47 Polyethylene Glycol (miraLAX) 17 gm PRN BID PRN PO 1ST CHOICE CONSTIPATION 02/02/21 14:15 02/13/21 08:00 Furosemide (Lasix) 20 mg DAILY PO 02/03/21 09:00 02/21/21 08:44 Losartan Potassium (Cozaar) 25 mg DAILY PO 02/03/21 09:00 02/21/21 08:45 Non-Formulary Medication (Insulin Lispro (Humalog)) 100 unit TIDACHC SQ 02/02/21 21:00 UNV Olanzapine (ZyPREXA ZYDIS) 2.5 mg PRN Q2HR PRN PO PSYCHOSIS 02/02/21 18:30 02/21/21 17:11 Insulin Human Lispro (HumaLOG) 0-5 UNITS TIDWMEALS SQ 02/03/21 08:00 02/15/21 12:31 Dextrose (Dextrose 50%-Water Syringe) 12.5 gm PRN Q15MIN PRN IV SEE COMMENTS 02/02/21 18:45 Lorazepam (Ativan) 0.5 mg 1500 PO 02/03/21 15:00 02/05/21 23:50 DC 02/05/21 17:54 Nystatin (Nystop) 1 vu BID TP 02/09/21 09:00 02/21/21 08:48 Olanzapine (ZyPREXA) 5 mg DAILY PO 02/11/21 09:00 02/21/21 20:20 DC 02/21/21 08:47 Olanzapine (ZyPREXA) 7.5 mg QHS PO 02/10/21 21:00 02/21/21 20:20 DC 02/19/21 19:32 Fluticasone Propionate (Flonase) 2 spray DAILY NS 02/20/21 09:00 02/21/21 05:20 Quetiapine Fumarate (SEROquel) 12.5 mg TIDAFTMEAL PO 02/22/21 09:00 Sertraline HCl (Zoloft) 50 mg DAILY PO 02/22/21 09:00 I have reviewed the current psychotropics carefully including drug interactions. Risk benefit ratio favors no change other than as noted in my dictated progress note. Diagnosis: Problems: (1) Impulse control disorder, unspecified (2) Anxiety disorder, unspecified (3) Dementia, vascular, with depression (4) Dementia, vascular, with delusions (5) Dementia in Alzheimer's disease with depression (6) Dementia in Alzheimer's disease with delusions (7) Major neurocognitive disorder (8) Dementia of the Alzheimer's type with early onset with behavioral disturbance JARRETT LEONE MD February 21, 2021 21:50
[2021-02-22] MEDS: ACETAMINOPHEN 325 MG TABLET PO PRN (03:56)
[2021-02-22] MEDS: LEVOTHYROXINE 50 MCG TABLET PO SCH (05:36)
[2021-02-22 05:40] VITALS: BP 153/67
[2021-02-22] MEDS: INSULIN LISPRO 300 UNITS/3 ML VIAL. SQ SCH ×3 (08:00→17:00)
[2021-02-22] MEDS: PANTOPRAZOLE 40 MG TABLET. PO SCH (08:40)
[2021-02-22] MEDS: POTASSIUM CHLORIDE 10 MEQ TABLET.ER. PO SCH ×2 (08:41→20:37)
[2021-02-22] MEDS: CARVEDILOL 12.5 MG TABLET PO SCH ×2 (08:41→17:36)
[2021-02-22] MEDS: PREGABALIN 75 MG CAPSULE PO SCH ×2 (08:41→20:37)
[2021-02-22] MEDS: LOSARTAN 25 MG TABLET. PO SCH (08:41)
[2021-02-22 08:42] LABS: ALBUMIN 2.9 g/dL (3.4-5.0); ALBUMIN/GLOBULIN RATIO 0.7 (1.0-1.7); CREATININE 1.1 mg/dL (0.6-1.0); GFR 47.3; POTASSIUM 3.7 mmol/L (3.5-5.1); TOTAL BILIRUBIN 0.4 mg/dL (0.2-1.0); TOTAL PROTEIN 7.3 g/dL (6.4-8.2)
[2021-02-22] MEDS: FUROSEMIDE 20 MG TABLET PO SCH (08:42)
[2021-02-22] MEDS: AMIODARONE HCL 200 MG TABLET. PO SCH (08:42)
[2021-02-22] MEDS: APIXABAN 2.5 MG TABLET PO SCH ×2 (08:42→20:37)
[2021-02-22] MEDS: CYCLOBENZAPRINE 10 MG TABLET. PO SCH (08:42)
[2021-02-22] MEDS: FLUTICASONE 50MCG/NASAL SPRAY 16GM BOTTLE. NS SCH (08:43)
[2021-02-22] MEDS: FLUTICASONE/VILANTEROL 100/25 INHALER. INH SCH (08:43)
[2021-02-22] MEDS: QUEtiapine 25 MG TABLET. PO SCH ×3 (08:44→17:37)
[2021-02-22] MEDS: NYSTATIN TOPICAL POWDER 15GM BOTTLE. TP SCH ×2 (08:44→20:38)
[2021-02-22] MEDS: SERTRALINE 50 MG TABLET. PO SCH (08:44)
[2021-02-22] MEDS: LUBIPROSTONE 24 MCG CAPSULE PO SCH ×2 (08:45→20:37)
[2021-02-22 09:11] LABS: BASO % 0 % (0-3); EOS # 0.1 x10^3/uL (0.0-0.7); EOS % 1 % (0-3); HEMATOCRIT 41.2 % (36.0-47.0); HEMOGLOBIN 13.4 g/dL (12.0-15.5); LYMPH # 1.7 x10^3/uL (1.0-4.8); LYMPH % 37 % (24-48); MEAN CORPUSCULAR HEMOGLOBIN 30 pg (25-35); MEAN CORPUSCULAR HGB CONC 33 g/dL (31-37); MEAN CORPUSCULAR VOLUME 94 fL (79-100); MONO # 0.3 x10^3/uL (0.0-1.1); MONO % 7 % (0-9); NEUT # 2.5 x10^3uL (1.8-7.7); NEUT % 55 % (31-73); PLATELET COUNT 185 x10^3/uL (140-400); RED BLOOD COUNT 4.39 x10^6/uL (3.50-5.40); RED CELL DISTRIBUTION WIDTH 17.5 % (11.5-14.5); WHITE BLOOD COUNT 4.6 x10^3/uL (4.0-11.0)
[2021-02-22 15:40] VITALS: BP 100/65
[2021-02-22] MEDS: QUEtiapine 50 MG TABLET. PO PRN (20:37)
--- NOTE | 2021-02-22 21:39 | PDOC ---
Exam Note: Jose Daniel Note: Please also refer to the separate dictated note~for this date of service dictated separately.~Patient seen individually. Discussed the patient with Nursing staff reviewed the chart.~Reviewed interim history and current functioning. Reviewed vital signs,~Labs/ Radiology~and current medications noted below. Continue current treatment with the changes noted in the dictated addendum note Assessment: Vital Signs/I&O: Vital Signs Date Time Temp Pulse Resp B/P (MAP) Pulse Ox O2 Delivery O2 Flow Rate FiO2 02/22/21 17:36 63 100/65 02/22/21 15:40 97.8 18 85 02/20/21 05:56 Room Air I & O 02/21/21 02/21/21 02/22/21 14:59 22:59 06:59 Intake Total 720 ml 120 ml Balance 720 ml 120 ml Labs: Laboratory Tests Test 02/22/21 07:12 02/22/21 07:26 02/22/21 09:03 02/22/21 11:45 Sodium Level 145 mmol/L (136-145) Potassium Level 3.7 mmol/L (3.5-5.1) Chloride Level 109 mmol/L (98-107) H Carbon Dioxide Level 25 mmol/L (21-32) Anion Gap 11 (6-14) Blood Urea Nitrogen 21 mg/dL (7-20) H Creatinine 1.1 mg/dL (0.6-1.0) H Estimated GFR (Cockcroft-Gault) 47.3 BUN/Creatinine Ratio 19 (6-20) Glucose Level 79 mg/dL (70-99) Calcium Level 9.0 mg/dL (8.5-10.1) Total Bilirubin 0.4 mg/dL (0.2-1.0) Aspartate Amino Transferase (AST) 26 U/L (15-37) Alanine Aminotransferase (ALT) 30 U/L (14-59) Alkaline Phosphatase 149 U/L (46-116) H Total Protein 7.3 g/dL (6.4-8.2) Albumin 2.9 g/dL (3.4-5.0) L Albumin/Globulin Ratio 0.7 (1.0-1.7) L Glucose (Fingerstick) 68 mg/dL (70-99) L 92 mg/dL (70-99) White Blood Count 4.6 x10^3/uL (4.0-11.0) Red Blood Count 4.39 x10^6/uL (3.50-5.40) Hemoglobin 13.4 g/dL (12.0-15.5) Hematocrit 41.2 % (36.0-47.0) Mean Corpuscular Volume 94 fL (79-100) Mean Corpuscular Hemoglobin 30 pg (25-35) Mean Corpuscular Hemoglobin Concent 33 g/dL (31-37) Red Cell Distribution Width 17.5 % (11.5-14.5) H Platelet Count 185 x10^3/uL (140-400) Neutrophils (%) (Auto) 55 % (31-73) Lymphocytes (%) (Auto) 37 % (24-48) Monocytes (%) (Auto) 7 % (0-9) Eosinophils (%) (Auto) 1 % (0-3) Basophils (%) (Auto) 0 % (0-3) Neutrophils # (Auto) 2.5 x10^3uL (1.8-7.7) Lymphocytes # (Auto) 1.7 x10^3/uL (1.0-4.8) Monocytes # (Auto) 0.3 x10^3/uL (0.0-1.1) Eosinophils # (Auto) 0.1 x10^3/uL (0.0-0.7) Basophils # (Auto) 0.0 x10^3/uL (0.0-0.2) Test 02/22/21 16:53 02/22/21 19:07 Glucose (Fingerstick) 95 mg/dL (70-99) 139 mg/dL (70-99) H Current Medications: Meds: Laboratory Tests Test 02/22/21 07:12 02/22/21 07:26 02/22/21 09:03 02/22/21 11:45 Sodium Level 145 mmol/L Potassium Level 3.7 mmol/L Chloride Level 109 mmol/L Carbon Dioxide Level 25 mmol/L Anion Gap 11 Blood Urea Nitrogen 21 mg/dL Creatinine 1.1 mg/dL Estimated GFR (Cockcroft-Gault) 47.3 BUN/Creatinine Ratio 19 Glucose Level 79 mg/dL Calcium Level 9.0 mg/dL Total Bilirubin 0.4 mg/dL Aspartate Amino Transf (AST/SGOT) 26 U/L Alanine Aminotransferase (ALT/SGPT) 30 U/L Alkaline Phosphatase 149 U/L Total Protein 7.3 g/dL Albumin 2.9 g/dL Albumin/Globulin Ratio 0.7 Glucose (Fingerstick) 68 mg/dL 92 mg/dL White Blood Count 4.6 x10^3/uL Red Blood Count 4.39 x10^6/uL Hemoglobin 13.4 g/dL Hematocrit 41.2 % Mean Corpuscular Volume 94 fL Mean Corpuscular Hemoglobin 30 pg Mean Corpuscular Hemoglobin Concent 33 g/dL Red Cell Distribution Width 17.5 % Platelet Count 185 x10^3/uL Neutrophils (%) (Auto) 55 % Lymphocytes (%) (Auto) 37 % Monocytes (%) (Auto) 7 % Eosinophils (%) (Auto) 1 % Basophils (%) (Auto) 0 % Neutrophils # (Auto) 2.5 x10^3uL Lymphocytes # (Auto) 1.7 x10^3/uL Monocytes # (Auto) 0.3 x10^3/uL Eosinophils # (Auto) 0.1 x10^3/uL Basophils # (Auto) 0.0 x10^3/uL Test 02/22/21 16:53 02/22/21 19:07 Glucose (Fingerstick) 95 mg/dL 139 mg/dL Current Medications Medications (Trade) Dose Ordered Sig/Meet Route PRN Reason Start Time Stop Time Status Last Admin Dose Admin Acetaminophen (Tylenol) 650 mg PRN Q6HRS PRN PO MILD PAIN / TEMP > 100.3'F 02/02/21 11:00 02/22/21 03:56 Multi-Ingredient Ointment (Analgesic [place]) 1 vu PRN QID PRN TP MUSCLE PAIN 02/02/21 11:00 Al Hydroxide/Mg Hydroxide (Mylanta Plus Xs) 15 ml PRN AFTMEALHC PRN PO DYSPEPSIA 02/02/21 11:00 Magnesium Hydroxide (Milk Of Magnesia) 2,400 mg PRN QHS PRN PO 2ND CHOICE CONSTIPATION 02/02/21 11:00 02/12/21 05:24 Acetaminophen (Tylenol) 650 mg PRN Q6HRS PRN PO pain or fever 02/02/21 13:45 UNV Amiodarone HCl (Cordarone) 200 mg DAILY PO 02/03/21 09:00 02/22/21 08:42 Apixaban (Eliquis) 2.5 mg BID PO 02/02/21 21:00 02/22/21 20:37 Carvedilol (Coreg) 12.5 mg BIDWMEALS PO 02/02/21 17:00 02/22/21 17:36 Cyclobenzaprine HCl (Flexeril) 10 mg DAILY PO 02/03/21 09:00 02/22/21 08:42 Fluconazole (Diflucan) 100 mg DAILY PO 02/03/21 09:00 02/07/21 09:30 DC 02/07/21 08:39 Furosemide (Lasix) 40 mg DAILY PO 02/03/21 09:00 02/02/21 16:16 DC Haloperidol (Haldol) 1 mg DAILY PO 02/03/21 09:00 02/03/21 14:19 DC 02/03/21 08:55 Hyoscyamine (Anaspaz) 0.125 mg PRN Q8HRS PRN PO GI SYMPTOMS 02/02/21 13:45 Levothyroxine Sodium (Synthroid) 50 mcg DAILY06 PO 02/03/21 06:00 02/22/21 05:36 Lorazepam (Ativan) 1 mg 1500 PO 02/02/21 15:00 02/03/21 14:19 DC 02/02/21 16:43 Losartan Potassium (Cozaar) 50 mg DAILY PO 02/03/21 09:00 02/02/21 16:16 DC Lubiprostone (Amitiza) 24 mcg BID PO 02/02/21 21:00 02/22/21 20:37 Nystatin (Nystop) 1 vu PRN DAILY PRN TP YEAST UNDER BREAST 02/02/21 13:45 02/08/21 22:44 DC 02/08/21 10:17 Olanzapine (ZyPREXA) 5 mg BID PO 02/02/21 21:00 02/10/21 11:12 DC 02/10/21 08:33 Potassium Chloride (Klor-Con) 10 meq BID PO 02/02/21 21:00 02/22/21 20:37 Pregabalin (Lyrica) 75 mg BID PO 02/02/21 21:00 02/22/21 20:37 Quetiapine Fumarate (SEROquel) 50 mg PRN QHS PRN PO AGITATION 02/02/21 13:45 02/22/21 20:37 Quetiapine Fumarate (SEROquel) 25 mg DAILY PO 02/03/21 09:00 02/10/21 11:12 DC 02/10/21 08:32 Fluticasone/ Vilanterol (Breo Ellipta 100-25 Mcg) 1 puff DAILY INH 02/03/21 09:00 02/22/21 08:43 Non-Formulary Medication (Glucagon (Baqsimi)) 3 mg PRN PRN NS HYPOGLYCEMIA 02/02/21 13:45 UNV Insulin Glargine (Lantus Syringe) 8 unit QHS SQ 02/02/21 21:00 02/17/21 18:26 DC 02/11/21 21:05 Non-Formulary Medication (Insulin Lispro (Humalog)) 100 unit ACHS PRN SQ DIABETES MELLITIS 02/02/21 13:45 02/02/21 18:17 DC Pantoprazole Sodium (Protonix) 40 mg DAILY PO 02/03/21 09:00 02/22/21 08:40 Polyethylene Glycol (miraLAX) 17 gm PRN BID PRN PO 1ST CHOICE CONSTIPATION 02/02/21 14:15 02/13/21 08:00 Furosemide (Lasix) 20 mg DAILY PO 02/03/21 09:00 02/22/21 08:42 Losartan Potassium (Cozaar) 25 mg DAILY PO 02/03/21 09:00 02/22/21 08:41 Non-Formulary Medication (Insulin Lispro (Humalog)) 100 unit TIDACHC SQ 02/02/21 21:00 UNV Olanzapine (ZyPREXA ZYDIS) 2.5 mg PRN Q2HR PRN PO PSYCHOSIS 02/02/21 18:30 02/22/21 15:35 Insulin Human Lispro (HumaLOG) 0-5 UNITS TIDWMEALS SQ 02/03/21 08:00 02/15/21 12:31 Dextrose (Dextrose 50%-Water Syringe) 12.5 gm PRN Q15MIN PRN IV SEE COMMENTS 02/02/21 18:45 Lorazepam (Ativan) 0.5 mg 1500 PO 02/03/21 15:00 02/05/21 23:50 DC 02/05/21 17:54 Nystatin (Nystop) 1 vu BID TP 02/09/21 09:00 02/22/21 20:38 Olanzapine (ZyPREXA) 5 mg DAILY PO 02/11/21 09:00 02/21/21 20:20 DC 02/21/21 08:47 Olanzapine (ZyPREXA) 7.5 mg QHS PO 02/10/21 21:00 02/21/21 20:20 DC 02/19/21 19:32 Fluticasone Propionate (Flonase) 2 spray DAILY NS 02/20/21 09:00 02/22/21 08:43 Quetiapine Fumarate (SEROquel) 12.5 mg TIDAFTMEAL PO 02/22/21 09:00 02/22/21 14:21 DC 02/22/21 13:31 Sertraline HCl (Zoloft) 50 mg DAILY PO 02/22/21 09:00 02/22/21 08:44 Quetiapine Fumarate (SEROquel) 12.5 mg 0900,1300,1700 PO 02/22/21 17:00 02/22/21 17:37 Current Medications Medications (Trade) Dose Ordered Sig/Meet Route PRN Reason Start Time Stop Time Status Last Admin Dose Admin Quetiapine Fumarate (SEROquel) 12.5 mg TIDAFTMEAL PO 02/22/21 09:00 02/22/21 14:21 DC 02/22/21 13:31 Sertraline HCl (Zoloft) 50 mg DAILY PO 02/22/21 09:00 02/22/21 08:44 Quetiapine Fumarate (SEROquel) 12.5 mg 0900,1300,1700 PO 02/22/21 17:00 02/22/21 17:37 I have reviewed the current psychotropics carefully including drug interactions. Risk benefit ratio favors no change other than as noted in my dictated progress note. Diagnosis: Problems: (1) Impulse control disorder, unspecified (2) Anxiety disorder, unspecified (3) Dementia, vascular, with depression (4) Dementia, vascular, with delusions (5) Dementia in Alzheimer's disease with depression (6) Dementia in Alzheimer's disease with delusions (7) Major neurocognitive disorder (8) Dementia of the Alzheimer's type with early onset with behavioral disturbance JARRETT LEONE MD February 22, 2021 21:39
[2021-02-23] MEDS: ACETAMINOPHEN 325 MG TABLET PO PRN (05:11)
[2021-02-23] MEDS: LEVOTHYROXINE 50 MCG TABLET PO SCH (05:11)
[2021-02-23 05:25] VITALS: BP 116/66
[2021-02-23 06:22] LABS: BGAS PH 7.38 (7.35-7.45)
--- NOTE | 2021-02-23 06:29 | RAD ---
XR CHEST 1V Clinical History: Reason: chest pain, kyphosis / Spl. Instructions: / History: Technique: AP view of the chest was obtained at 02/23/2021 5:55 AM. Comparison: None. Findings: The heart is normal in size. The pulmonary vessels appear normal. There is patchy opacity in the lung bases. 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 Impression: Basilar pulmonary infiltrates likely discoid atelectasis. Electronically signed by: Shyam Dodd III, MD (02/23/2021 6:26 AM) [facility]
[2021-02-23 06:57] LABS: BASO % 1 % (0-3); EOS # 0.1 x10^3/uL (0.0-0.7); EOS % 2 % (0-3); HEMATOCRIT 36.7 % (36.0-47.0); HEMOGLOBIN 11.7 g/dL (12.0-15.5); LYMPH # 1.8 x10^3/uL (1.0-4.8); LYMPH % 44 % (24-48); MEAN CORPUSCULAR HEMOGLOBIN 30 pg (25-35); MEAN CORPUSCULAR HGB CONC 32 g/dL (31-37); MEAN CORPUSCULAR VOLUME 94 fL (79-100); MONO # 0.4 x10^3/uL (0.0-1.1); MONO % 10 % (0-9); NEUT # 1.7 x10^3uL (1.8-7.7); NEUT % 43 % (31-73); PLATELET COUNT 159 x10^3/uL (140-400); RED BLOOD COUNT 3.91 x10^6/uL (3.50-5.40); RED CELL DISTRIBUTION WIDTH 17.7 % (11.5-14.5)
[2021-02-23 07:08] LABS: CALCIUM 8.4 mg/dL (8.5-10.1); CREATININE 1.4 mg/dL (0.6-1.0); GFR 35.8; POTASSIUM 3.7 mmol/L (3.5-5.1)
--- NOTE | 2021-02-23 07:11 | PDOC ---
Exam Note: Jose Daniel Note: This note is a late entry for 02/04/2021 covers elements not covered in my initial note. Subjective: This note was initially completed on 02/04/2021 but cannot be retrieved in the electronic medical system and is being re-dictated today 02/22/2021. The patient was seen individually in the evening of 02/04/2021 with Iona SANTOS, discussed and reviewed the chart. She refused her medications. If nursing staff insists, she takes her medications. She does take them and is somewhat irritable grumpy at times. Review of Systems: Ambulation impaired in wheelchair. No CV, , pulmonary, eye, ENT system symptoms on review. Mental Status Exam: The patient is oriented to herself. Insight and judgment, recent and remote memory, attention and concentration, fund of knowledge is poor consistent with her diagnoses. Laboratory Data: Reviewed. Impression: Major neurocognitive disorder Alzheimer vascular with delusion, depression, behavioral disturbance. Anxiety disorder unspecified. Impulse control disorder unspecified. Plan: Per nursing report she has to be given wang reminder and she is more compliant with her medications. Dr. Perry will cover for me starting from 02/05/2021 at 8 a.m. till 02/20/2021 at 8 p.m. Assessment: Vital Signs/I&O: Vital Signs Date Time Temp Pulse Resp B/P (MAP) Pulse Ox O2 Delivery O2 Flow Rate FiO2 02/23/21 05:25 96.8 66 18 116/66 (83) 95 Room Air I & O 02/22/21 02/22/21 02/23/21 15:00 23:00 07:00 Intake Total 600 ml 480 ml Balance 600 ml 480 ml Labs: Laboratory Tests Test 02/22/21 07:12 02/22/21 07:26 02/22/21 09:03 02/22/21 11:45 Sodium Level 145 mmol/L (136-145) Potassium Level 3.7 mmol/L (3.5-5.1) Chloride Level 109 mmol/L (98-107) H Carbon Dioxide Level 25 mmol/L (21-32) Anion Gap 11 (6-14) Blood Urea Nitrogen 21 mg/dL (7-20) H Creatinine 1.1 mg/dL (0.6-1.0) H Estimated GFR (Cockcroft-Gault) 47.3 BUN/Creatinine Ratio 19 (6-20) Glucose Level 79 mg/dL (70-99) Calcium Level 9.0 mg/dL (8.5-10.1) Total Bilirubin 0.4 mg/dL (0.2-1.0) Aspartate Amino Transferase (AST) 26 U/L (15-37) Alanine Aminotransferase (ALT) 30 U/L (14-59) Alkaline Phosphatase 149 U/L (46-116) H Total Protein 7.3 g/dL (6.4-8.2) Albumin 2.9 g/dL (3.4-5.0) L Albumin/Globulin Ratio 0.7 (1.0-1.7) L Glucose (Fingerstick) 68 mg/dL (70-99) L 92 mg/dL (70-99) White Blood Count 4.6 x10^3/uL (4.0-11.0) Red Blood Count 4.39 x10^6/uL (3.50-5.40) Hemoglobin 13.4 g/dL (12.0-15.5) Hematocrit 41.2 % (36.0-47.0) Mean Corpuscular Volume 94 fL (79-100) Mean Corpuscular Hemoglobin 30 pg (25-35) Mean Corpuscular Hemoglobin Concent 33 g/dL (31-37) Red Cell Distribution Width 17.5 % (11.5-14.5) H Platelet Count 185 x10^3/uL (140-400) Neutrophils (%) (Auto) 55 % (31-73) Lymphocytes (%) (Auto) 37 % (24-48) Monocytes (%) (Auto) 7 % (0-9) Eosinophils (%) (Auto) 1 % (0-3) Basophils (%) (Auto) 0 % (0-3) Neutrophils # (Auto) 2.5 x10^3uL (1.8-7.7) Lymphocytes # (Auto) 1.7 x10^3/uL (1.0-4.8) Monocytes # (Auto) 0.3 x10^3/uL (0.0-1.1) Eosinophils # (Auto) 0.1 x10^3/uL (0.0-0.7) Basophils # (Auto) 0.0 x10^3/uL (0.0-0.2) Test 5/25/21 16:53 02/22/21 19:07 02/23/21 06:05 02/23/21 06:30 Glucose (Fingerstick) 95 mg/dL (70-99) 139 mg/dL (70-99) H Blood pH 7.38 (7.35-7.45) Blood Gas PCO2 49 mmHg (35-45) H Blood Gas PO2 73 mmHg (71-100) Blood Gas HCO3 29 mmol/L (22-26) H Arterial Bld O2 Saturation (Calc) 94 % (92-99) FiO2 21 % White Blood Count 4.0 x10^3/uL (4.0-11.0) Red Blood Count 3.91 x10^6/uL (3.50-5.40) Hemoglobin 11.7 g/dL (12.0-15.5) L Hematocrit 36.7 % (36.0-47.0) Mean Corpuscular Volume 94 fL (79-100) Mean Corpuscular Hemoglobin 30 pg (25-35) Mean Corpuscular Hemoglobin Concent 32 g/dL (31-37) Red Cell Distribution Width 17.7 % (11.5-14.5) H Platelet Count 159 x10^3/uL (140-400) Neutrophils (%) (Auto) 43 % (31-73) Lymphocytes (%) (Auto) 44 % (24-48) Monocytes (%) (Auto) 10 % (0-9) H Eosinophils (%) (Auto) 2 % (0-3) Basophils (%) (Auto) 1 % (0-3) Neutrophils # (Auto) 1.7 x10^3uL (1.8-7.7) L Lymphocytes # (Auto) 1.8 x10^3/uL (1.0-4.8) Monocytes # (Auto) 0.4 x10^3/uL (0.0-1.1) Eosinophils # (Auto) 0.1 x10^3/uL (0.0-0.7) Basophils # (Auto) 0.0 x10^3/uL (0.0-0.2) Current Medications: Meds: Laboratory Tests Test 02/22/21 07:12 02/22/21 07:26 02/22/21 09:03 02/22/21 11:45 Sodium Level 145 mmol/L Potassium Level 3.7 mmol/L Chloride Level 109 mmol/L Carbon Dioxide Level 25 mmol/L Anion Gap 11 Blood Urea Nitrogen 21 mg/dL Creatinine 1.1 mg/dL Estimated GFR (Cockcroft-Gault) 47.3 BUN/Creatinine Ratio 19 Glucose Level 79 mg/dL Calcium Level 9.0 mg/dL Total Bilirubin 0.4 mg/dL Aspartate Amino Transf (AST/SGOT) 26 U/L Alanine Aminotransferase (ALT/SGPT) 30 U/L Alkaline Phosphatase 149 U/L Total Protein 7.3 g/dL Albumin 2.9 g/dL Albumin/Globulin Ratio 0.7 Glucose (Fingerstick) 68 mg/dL 92 mg/dL White Blood Count 4.6 x10^3/uL Red Blood Count 4.39 x10^6/uL Hemoglobin 13.4 g/dL Hematocrit 41.2 % Mean Corpuscular Volume 94 fL Mean Corpuscular Hemoglobin 30 pg Mean Corpuscular Hemoglobin Concent 33 g/dL Red Cell Distribution Width 17.5 % Platelet Count 185 x10^3/uL Neutrophils (%) (Auto) 55 % Lymphocytes (%) (Auto) 37 % Monocytes (%) (Auto) 7 % Eosinophils (%) (Auto) 1 % Basophils (%) (Auto) 0 % Neutrophils # (Auto) 2.5 x10^3uL Lymphocytes # (Auto) 1.7 x10^3/uL Monocytes # (Auto) 0.3 x10^3/uL Eosinophils # (Auto) 0.1 x10^3/uL Basophils # (Auto) 0.0 x10^3/uL Test 02/22/21 16:53 02/22/21 19:07 02/23/21 06:05 02/23/21 06:30 Glucose (Fingerstick) 95 mg/dL 139 mg/dL Blood Gas pH 7.38 Blood Gas PCO2 49 mmHg Blood Gas PO2 73 mmHg Blood Gas HCO3 29 mmol/L Arterial Bld O2 Saturation (Calc) 94 % FiO2 21 % White Blood Count 4.0 x10^3/uL Red Blood Count 3.91 x10^6/uL Hemoglobin 11.7 g/dL Hematocrit 36.7 % Mean Corpuscular Volume 94 fL Mean Corpuscular Hemoglobin 30 pg Mean Corpuscular Hemoglobin Concent 32 g/dL Red Cell Distribution Width 17.7 % Platelet Count 159 x10^3/uL Neutrophils (%) (Auto) 43 % Lymphocytes (%) (Auto) 44 % Monocytes (%) (Auto) 10 % Eosinophils (%) (Auto) 2 % Basophils (%) (Auto) 1 % Neutrophils # (Auto) 1.7 x10^3uL Lymphocytes # (Auto) 1.8 x10^3/uL Monocytes # (Auto) 0.4 x10^3/uL Eosinophils # (Auto) 0.1 x10^3/uL Basophils # (Auto) 0.0 x10^3/uL Current Medications Medications (Trade) Dose Ordered Sig/Meet Route PRN Reason Start Time Stop Time Status Last Admin Dose Admin Acetaminophen (Tylenol) 650 mg PRN Q6HRS PRN PO MILD PAIN / TEMP > 100.3'F 02/02/21 11:00 02/23/21 05:11 Multi-Ingredient Ointment (Analgesic Crooks) 1 vu PRN QID PRN TP MUSCLE PAIN 02/02/21 11:00 Al Hydroxide/Mg Hydroxide (Mylanta Plus Xs) 15 ml PRN AFTMEALHC PRN PO DYSPEPSIA 02/02/21 11:00 Magnesium Hydroxide (Milk Of Magnesia) 2,400 mg PRN QHS PRN PO 2ND CHOICE CONSTIPATION 02/02/21 11:00 02/12/21 05:24 Acetaminophen (Tylenol) 650 mg PRN Q6HRS PRN PO pain or fever 02/02/21 13:45 UNV Amiodarone HCl (Cordarone) 200 mg DAILY PO 02/03/21 09:00 02/22/21 08:42 Apixaban (Eliquis) 2.5 mg BID PO 02/02/21 21:00 02/22/21 20:37 Carvedilol (Coreg) 12.5 mg BIDWMEALS PO 02/02/21 17:00 02/22/21 17:36 Cyclobenzaprine HCl (Flexeril) 10 mg DAILY PO 02/03/21 09:00 02/22/21 08:42 Fluconazole (Diflucan) 100 mg DAILY PO 02/03/21 09:00 02/07/21 09:30 DC 02/07/21 08:39 Furosemide (Lasix) 40 mg DAILY PO 02/03/21 09:00 02/02/21 16:16 DC Haloperidol (Haldol) 1 mg DAILY PO 02/03/21 09:00 02/03/21 14:19 DC 02/03/21 08:55 Hyoscyamine (Anaspaz) 0.125 mg PRN Q8HRS PRN PO GI SYMPTOMS 02/02/21 13:45 Levothyroxine Sodium (Synthroid) 50 mcg DAILY06 PO 02/03/21 06:00 02/23/21 05:11 Lorazepam (Ativan) 1 mg 1500 PO 02/02/21 15:00 02/03/21 14:19 DC 02/02/21 16:43 Losartan Potassium (Cozaar) 50 mg DAILY PO 02/03/21 09:00 02/02/21 16:16 DC Lubiprostone (Amitiza) 24 mcg BID PO 02/02/21 21:00 02/22/21 20:37 Nystatin (Nystop) 1 vu PRN DAILY PRN TP YEAST UNDER BREAST 02/02/21 13:45 02/08/21 22:44 DC 02/08/21 10:17 Olanzapine (ZyPREXA) 5 mg BID PO 02/02/21 21:00 02/10/21 11:12 DC 02/10/21 08:33 Potassium Chloride (Klor-Con) 10 meq BID PO 02/02/21 21:00 02/22/21 20:37 Pregabalin (Lyrica) 75 mg BID PO 02/02/21 21:00 02/22/21 20:37 Quetiapine Fumarate (SEROquel) 50 mg PRN QHS PRN PO AGITATION 02/02/21 13:45 02/22/21 20:37 Quetiapine Fumarate (SEROquel) 25 mg DAILY PO 02/03/21 09:00 02/10/21 11:12 DC 02/10/21 08:32 Fluticasone/ Vilanterol (Breo Ellipta 100-25 Mcg) 1 puff DAILY INH 02/03/21 09:00 02/22/21 08:43 Non-Formulary Medication (Glucagon (Baqsimi)) 3 mg PRN PRN NS HYPOGLYCEMIA 02/02/21 13:45 UNV Insulin Glargine (Lantus Syringe) 8 unit QHS SQ 02/02/21 21:00 02/17/21 18:26 DC 02/11/21 21:05 Non-Formulary Medication (Insulin Lispro (Humalog)) 100 unit ACHS PRN SQ DIABETES MELLITIS 02/02/21 13:45 02/02/21 18:17 DC Pantoprazole Sodium (Protonix) 40 mg DAILY PO 02/03/21 09:00 02/22/21 08:40 Polyethylene Glycol (miraLAX) 17 gm PRN BID PRN PO 1ST CHOICE CONSTIPATION 02/02/21 14:15 02/13/21 08:00 Furosemide (Lasix) 20 mg DAILY PO 02/03/21 09:00 02/22/21 08:42 Losartan Potassium (Cozaar) 25 mg DAILY PO 02/03/21 09:00 02/22/21 08:41 Non-Formulary Medication (Insulin Lispro (Humalog)) 100 unit TIDACHC SQ 02/02/21 21:00 UNV Olanzapine (ZyPREXA ZYDIS) 2.5 mg PRN Q2HR PRN PO PSYCHOSIS 02/02/21 18:30 02/22/21 15:35 Insulin Human Lispro (HumaLOG) 0-5 UNITS TIDWMEALS SQ 02/03/21 08:00 02/15/21 12:31 Dextrose (Dextrose 50%-Water Syringe) 12.5 gm PRN Q15MIN PRN IV SEE COMMENTS 02/02/21 18:45 Lorazepam (Ativan) 0.5 mg 1500 PO 02/03/21 15:00 02/05/21 23:50 DC 02/05/21 17:54 Nystatin (Nystop) 1 vu BID TP 02/09/21 09:00 02/22/21 20:38 Olanzapine (ZyPREXA) 5 mg DAILY PO 02/11/21 09:00 02/21/21 20:20 DC 02/21/21 08:47 Olanzapine (ZyPREXA) 7.5 mg QHS PO 02/10/21 21:00 02/21/21 20:20 DC 02/19/21 19:32 Fluticasone Propionate (Flonase) 2 spray DAILY NS 02/20/21 09:00 02/22/21 08:43 Quetiapine Fumarate (SEROquel) 12.5 mg TIDAFTMEAL PO 02/22/21 09:00 02/22/21 14:21 DC 02/22/21 13:31 Sertraline HCl (Zoloft) 50 mg DAILY PO 02/22/21 09:00 02/22/21 08:44 Quetiapine Fumarate (SEROquel) 12.5 mg 0900,1300,1700 PO 02/22/21 17:00 02/22/21 17:37 Current Medications Medications (Trade) Dose Ordered Sig/Meet Route PRN Reason Start Time Stop Time Status Last Admin Dose Admin Quetiapine Fumarate (SEROquel) 12.5 mg TIDAFTMEAL PO 02/22/21 09:00 02/22/21 14:21 DC 02/22/21 13:31 Sertraline HCl (Zoloft) 50 mg DAILY PO 02/22/21 09:00 02/22/21 08:44 Quetiapine Fumarate (SEROquel) 12.5 mg 0900,1300,1700 PO 02/22/21 17:00 02/22/21 17:37 I have reviewed the current psychotropics carefully including drug interactions. Risk benefit ratio favors no change other than as noted in my dictated progress note. Diagnosis: Problems: (1) Impulse control disorder, unspecified (2) Anxiety disorder, unspecified (3) Dementia, vascular, with depression (4) Dementia, vascular, with delusions (5) Dementia in Alzheimer's disease with depression (6) Dementia in Alzheimer's disease with delusions (7) Major neurocognitive disorder (8) Dementia of the Alzheimer's type with early onset with behavioral disturbance JARRETT LEONE MD February 23, 2021 07:11
[2021-02-23 07:14] LABS: ALBUMIN 2.5 g/dL (3.4-5.0); ALBUMIN/GLOBULIN RATIO 0.7 (1.0-1.7); TOTAL BILIRUBIN 0.2 mg/dL (0.2-1.0); TOTAL PROTEIN 6.2 g/dL (6.4-8.2)
[2021-02-23] MEDS: INSULIN LISPRO 300 UNITS/3 ML VIAL. SQ SCH ×3 (08:00→17:00)
--- NOTE | 2021-02-23 08:10 | PDOC ---
Exam Note: Jose Daniel Note: This note is a late entry for 02/21/2021 covers elements not covered in my initial note. Subjective: The patient was seen individually in the evening of 02/21/2021 with Tanner SANTOS, discussed and reviewed the chart. She slept 5-3/4 hours previous night. She refused her h.s. medications. She was more cooperative during the day on 02/21. She is somewhat delusional, believed the roof is falling on her. She is anxious, restless. Review of Systems: Ambulation impaired in wheelchair. She transfers by herself. No CV, , pulmonary, eye, ENT system symptoms on review. She does complain of being tired. Mental Status Exam: The patient is oriented to herself. Eye contact is poor. She bends forward in the wheelchair. Speech low in rate and rhythm, low in volume. Often response is monosyllabic, somewhat delusional. Insight and judgment, recent and remote memory, attention and concentration, fund of knowledge is poor consistent with her diagnoses. Laboratory Data: Reviewed. Impression: Major neurocognitive disorder Alzheimer vascular with delusion, depression, behavioral disturbance. Anxiety disorder unspecified. Impulse control disorder unspecified. Plan: I have carefully reviewed the patients current psychotropics and reviewed information with Dr. Perry who had covered for me for the past 2 weeks. Nursing staff feel the Zyprexa is not very effective as a mood stabilizer antipsychotic. We will change to Seroquel 12.5 mg 9 a.m., 1 p.m., and 5 p.m. and start Zoloft 50 mg a day. Continue Zyprexa p.r.n. Received informed consent. Assessment: Vital Signs/I&O: Vital Signs Date Time Temp Pulse Resp B/P (MAP) Pulse Ox O2 Delivery O2 Flow Rate FiO2 02/23/21 05:25 96.8 66 18 116/66 (83) 95 Room Air I & O 02/22/21 02/22/21 02/23/21 15:00 23:00 07:00 Intake Total 600 ml 480 ml Balance 600 ml 480 ml Labs: Laboratory Tests Test 02/22/21 09:03 02/22/21 11:45 02/22/21 16:53 02/22/21 19:07 White Blood Count 4.6 x10^3/uL (4.0-11.0) Red Blood Count 4.39 x10^6/uL (3.50-5.40) Hemoglobin 13.4 g/dL (12.0-15.5) Hematocrit 41.2 % (36.0-47.0) Mean Corpuscular Volume 94 fL (79-100) Mean Corpuscular Hemoglobin 30 pg (25-35) Mean Corpuscular Hemoglobin Concent 33 g/dL (31-37) Red Cell Distribution Width 17.5 % (11.5-14.5) H Platelet Count 185 x10^3/uL (140-400) Neutrophils (%) (Auto) 55 % (31-73) Lymphocytes (%) (Auto) 37 % (24-48) Monocytes (%) (Auto) 7 % (0-9) Eosinophils (%) (Auto) 1 % (0-3) Basophils (%) (Auto) 0 % (0-3) Neutrophils # (Auto) 2.5 x10^3uL (1.8-7.7) Lymphocytes # (Auto) 1.7 x10^3/uL (1.0-4.8) Monocytes # (Auto) 0.3 x10^3/uL (0.0-1.1) Eosinophils # (Auto) 0.1 x10^3/uL (0.0-0.7) Basophils # (Auto) 0.0 x10^3/uL (0.0-0.2) Glucose (Fingerstick) 92 mg/dL (70-99) 95 mg/dL (70-99) 139 mg/dL (70-99) H Test 02/23/21 06:05 02/23/21 06:30 02/23/21 08:07 Blood pH 7.38 (7.35-7.45) Blood Gas PCO2 49 mmHg (35-45) H Blood Gas PO2 73 mmHg (71-100) Blood Gas HCO3 29 mmol/L (22-26) H Arterial Bld O2 Saturation (Calc) 94 % (92-99) FiO2 21 % White Blood Count 4.0 x10^3/uL (4.0-11.0) Red Blood Count 3.91 x10^6/uL (3.50-5.40) Hemoglobin 11.7 g/dL (12.0-15.5) L Hematocrit 36.7 % (36.0-47.0) Mean Corpuscular Volume 94 fL (79-100) Mean Corpuscular Hemoglobin 30 pg (25-35) Mean Corpuscular Hemoglobin Concent 32 g/dL (31-37) Red Cell Distribution Width 17.7 % (11.5-14.5) H Platelet Count 159 x10^3/uL (140-400) Neutrophils (%) (Auto) 43 % (31-73) Lymphocytes (%) (Auto) 44 % (24-48) Monocytes (%) (Auto) 10 % (0-9) H Eosinophils (%) (Auto) 2 % (0-3) Basophils (%) (Auto) 1 % (0-3) Neutrophils # (Auto) 1.7 x10^3uL (1.8-7.7) L Lymphocytes # (Auto) 1.8 x10^3/uL (1.0-4.8) Monocytes # (Auto) 0.4 x10^3/uL (0.0-1.1) Eosinophils # (Auto) 0.1 x10^3/uL (0.0-0.7) Basophils # (Auto) 0.0 x10^3/uL (0.0-0.2) Sodium Level 146 mmol/L (136-145) H Potassium Level 3.7 mmol/L (3.5-5.1) Chloride Level 110 mmol/L (98-107) H Carbon Dioxide Level 29 mmol/L (21-32) Anion Gap 7 (6-14) Blood Urea Nitrogen 23 mg/dL (7-20) H Creatinine 1.4 mg/dL (0.6-1.0) H Estimated GFR (Cockcroft-Gault) 35.8 BUN/Creatinine Ratio 16 (6-20) Glucose Level 95 mg/dL (70-99) Calcium Level 8.4 mg/dL (8.5-10.1) L Total Bilirubin 0.2 mg/dL (0.2-1.0) Aspartate Amino Transferase (AST) 18 U/L (15-37) Alanine Aminotransferase (ALT) 25 U/L (14-59) Alkaline Phosphatase 122 U/L (46-116) H Troponin I Quantitative < 0.017 ng/mL (0-0.055) Total Protein 6.2 g/dL (6.4-8.2) L Albumin 2.5 g/dL (3.4-5.0) L Albumin/Globulin Ratio 0.7 (1.0-1.7) L Glucose (Fingerstick) 84 mg/dL (70-99) Current Medications: Meds: Laboratory Tests Test 02/22/21 09:03 02/22/21 11:45 02/22/21 16:53 02/22/21 19:07 White Blood Count 4.6 x10^3/uL Red Blood Count 4.39 x10^6/uL Hemoglobin 13.4 g/dL Hematocrit 41.2 % Mean Corpuscular Volume 94 fL Mean Corpuscular Hemoglobin 30 pg Mean Corpuscular Hemoglobin Concent 33 g/dL Red Cell Distribution Width 17.5 % Platelet Count 185 x10^3/uL Neutrophils (%) (Auto) 55 % Lymphocytes (%) (Auto) 37 % Monocytes (%) (Auto) 7 % Eosinophils (%) (Auto) 1 % Basophils (%) (Auto) 0 % Neutrophils # (Auto) 2.5 x10^3uL Lymphocytes # (Auto) 1.7 x10^3/uL Monocytes # (Auto) 0.3 x10^3/uL Eosinophils # (Auto) 0.1 x10^3/uL Basophils # (Auto) 0.0 x10^3/uL Glucose (Fingerstick) 92 mg/dL 95 mg/dL 139 mg/dL Test 02/23/21 06:05 02/23/21 06:30 02/23/21 08:07 Blood Gas pH 7.38 Blood Gas PCO2 49 mmHg Blood Gas PO2 73 mmHg Blood Gas HCO3 29 mmol/L Arterial Bld O2 Saturation (Calc) 94 % FiO2 21 % White Blood Count 4.0 x10^3/uL Red Blood Count 3.91 x10^6/uL Hemoglobin 11.7 g/dL Hematocrit 36.7 % Mean Corpuscular Volume 94 fL Mean Corpuscular Hemoglobin 30 pg Mean Corpuscular Hemoglobin Concent 32 g/dL Red Cell Distribution Width 17.7 % Platelet Count 159 x10^3/uL Neutrophils (%) (Auto) 43 % Lymphocytes (%) (Auto) 44 % Monocytes (%) (Auto) 10 % Eosinophils (%) (Auto) 2 % Basophils (%) (Auto) 1 % Neutrophils # (Auto) 1.7 x10^3uL Lymphocytes # (Auto) 1.8 x10^3/uL Monocytes # (Auto) 0.4 x10^3/uL Eosinophils # (Auto) 0.1 x10^3/uL Basophils # (Auto) 0.0 x10^3/uL Sodium Level 146 mmol/L Potassium Level 3.7 mmol/L Chloride Level 110 mmol/L Carbon Dioxide Level 29 mmol/L Anion Gap 7 Blood Urea Nitrogen 23 mg/dL Creatinine 1.4 mg/dL Estimated GFR (Cockcroft-Gault) 35.8 BUN/Creatinine Ratio 16 Glucose Level 95 mg/dL Calcium Level 8.4 mg/dL Total Bilirubin 0.2 mg/dL Aspartate Amino Transf (AST/SGOT) 18 U/L Alanine Aminotransferase (ALT/SGPT) 25 U/L Alkaline Phosphatase 122 U/L Troponin I Quantitative < 0.017 ng/mL Total Protein 6.2 g/dL Albumin 2.5 g/dL Albumin/Globulin Ratio 0.7 Glucose (Fingerstick) 84 mg/dL Current Medications Medications (Trade) Dose Ordered Sig/Meet Route PRN Reason Start Time Stop Time Status Last Admin Dose Admin Acetaminophen (Tylenol) 650 mg PRN Q6HRS PRN PO MILD PAIN / TEMP > 100.3'F 02/02/21 11:00 02/23/21 05:11 Multi-Ingredient Ointment (Analgesic Christine) 1 vu PRN QID PRN TP MUSCLE PAIN 02/02/21 11:00 Al Hydroxide/Mg Hydroxide (Mylanta Plus Xs) 15 ml PRN AFTMEALHC PRN PO DYSPEPSIA 02/02/21 11:00 Magnesium Hydroxide (Milk Of Magnesia) 2,400 mg PRN QHS PRN PO 2ND CHOICE CONSTIPATION 02/02/21 11:00 02/12/21 05:24 Acetaminophen (Tylenol) 650 mg PRN Q6HRS PRN PO pain or fever 02/02/21 13:45 UNV Amiodarone HCl (Cordarone) 200 mg DAILY PO 02/03/21 09:00 02/22/21 08:42 Apixaban (Eliquis) 2.5 mg BID PO 02/02/21 21:00 02/22/21 20:37 Carvedilol (Coreg) 12.5 mg BIDWMEALS PO 02/02/21 17:00 02/22/21 17:36 Cyclobenzaprine HCl (Flexeril) 10 mg DAILY PO 02/03/21 09:00 02/22/21 08:42 Fluconazole (Diflucan) 100 mg DAILY PO 02/03/21 09:00 02/07/21 09:30 DC 02/07/21 08:39 Furosemide (Lasix) 40 mg DAILY PO 02/03/21 09:00 02/02/21 16:16 DC Haloperidol (Haldol) 1 mg DAILY PO 02/03/21 09:00 02/03/21 14:19 DC 02/03/21 08:55 Hyoscyamine (Anaspaz) 0.125 mg PRN Q8HRS PRN PO GI SYMPTOMS 02/02/21 13:45 Levothyroxine Sodium (Synthroid) 50 mcg DAILY06 PO 02/03/21 06:00 02/23/21 05:11 Lorazepam (Ativan) 1 mg 1500 PO 02/02/21 15:00 02/03/21 14:19 DC 02/02/21 16:43 Losartan Potassium (Cozaar) 50 mg DAILY PO 02/03/21 09:00 02/02/21 16:16 DC Lubiprostone (Amitiza) 24 mcg BID PO 02/02/21 21:00 02/22/21 20:37 Nystatin (Nystop) 1 vu PRN DAILY PRN TP YEAST UNDER BREAST 02/02/21 13:45 02/08/21 22:44 DC 02/08/21 10:17 Olanzapine (ZyPREXA) 5 mg BID PO 02/02/21 21:00 02/10/21 11:12 DC 02/10/21 08:33 Potassium Chloride (Klor-Con) 10 meq BID PO 02/02/21 21:00 02/22/21 20:37 Pregabalin (Lyrica) 75 mg BID PO 02/02/21 21:00 02/22/21 20:37 Quetiapine Fumarate (SEROquel) 50 mg PRN QHS PRN PO AGITATION 02/02/21 13:45 02/22/21 20:37 Quetiapine Fumarate (SEROquel) 25 mg DAILY PO 02/03/21 09:00 02/10/21 11:12 DC 02/10/21 08:32 Fluticasone/ Vilanterol (Breo Ellipta 100-25 Mcg) 1 puff DAILY INH 02/03/21 09:00 02/22/21 08:43 Non-Formulary Medication (Glucagon (Baqsimi)) 3 mg PRN PRN NS HYPOGLYCEMIA 02/02/21 13:45 UNV Insulin Glargine (Lantus Syringe) 8 unit QHS SQ 02/02/21 21:00 02/17/21 18:26 DC 02/11/21 21:05 Non-Formulary Medication (Insulin Lispro (Humalog)) 100 unit ACHS PRN SQ DIABETES MELLITIS 02/02/21 13:45 02/02/21 18:17 DC Pantoprazole Sodium (Protonix) 40 mg DAILY PO 02/03/21 09:00 02/22/21 08:40 Polyethylene Glycol (miraLAX) 17 gm PRN BID PRN PO 1ST CHOICE CONSTIPATION 02/02/21 14:15 02/13/21 08:00 Furosemide (Lasix) 20 mg DAILY PO 02/03/21 09:00 02/22/21 08:42 Losartan Potassium (Cozaar) 25 mg DAILY PO 02/03/21 09:00 02/22/21 08:41 Non-Formulary Medication (Insulin Lispro (Humalog)) 100 unit TIDACHC SQ 02/02/21 21:00 UNV Olanzapine (ZyPREXA ZYDIS) 2.5 mg PRN Q2HR PRN PO PSYCHOSIS 02/02/21 18:30 02/22/21 15:35 Insulin Human Lispro (HumaLOG) 0-5 UNITS TIDWMEALS SQ 02/03/21 08:00 02/15/21 12:31 Dextrose (Dextrose 50%-Water Syringe) 12.5 gm PRN Q15MIN PRN IV SEE COMMENTS 02/02/21 18:45 Lorazepam (Ativan) 0.5 mg 1500 PO 02/03/21 15:00 02/05/21 23:50 DC 02/05/21 17:54 Nystatin (Nystop) 1 vu BID TP 02/09/21 09:00 02/22/21 20:38 Olanzapine (ZyPREXA) 5 mg DAILY PO 02/11/21 09:00 02/21/21 20:20 DC 02/21/21 08:47 Olanzapine (ZyPREXA) 7.5 mg QHS PO 02/10/21 21:00 02/21/21 20:20 DC 02/19/21 19:32 Fluticasone Propionate (Flonase) 2 spray DAILY NS 02/20/21 09:00 02/22/21 08:43 Quetiapine Fumarate (SEROquel) 12.5 mg TIDAFTMEAL PO 02/22/21 09:00 02/22/21 14:21 DC 02/22/21 13:31 Sertraline HCl (Zoloft) 50 mg DAILY PO 02/22/21 09:00 02/22/21 08:44 Quetiapine Fumarate (SEROquel) 12.5 mg 0900,1300,1700 PO 02/22/21 17:00 02/22/21 17:37 Current Medications Medications (Trade) Dose Ordered Sig/Meet Route PRN Reason Start Time Stop Time Status Last Admin Dose Admin Quetiapine Fumarate (SEROquel) 12.5 mg TIDAFTMEAL PO 02/22/21 09:00 02/22/21 14:21 DC 02/22/21 13:31 Sertraline HCl (Zoloft) 50 mg DAILY PO 02/22/21 09:00 02/22/21 08:44 Quetiapine Fumarate (SEROquel) 12.5 mg 0900,1300,1700 PO 02/22/21 17:00 02/22/21 17:37 I have reviewed the current psychotropics carefully including drug interactions. Risk benefit ratio favors no change other than as noted in my dictated progress note. Diagnosis: Problems: (1) Impulse control disorder, unspecified (2) Anxiety disorder, unspecified (3) Dementia, vascular, with depression (4) Dementia, vascular, with delusions (5) Dementia in Alzheimer's disease with depression (6) Dementia in Alzheimer's disease with delusions (7) Major neurocognitive disorder (8) Dementia of the Alzheimer's type with early onset with behavioral disturbance JARRETT LEONE MD February 23, 2021 08:10
--- NOTE | 2021-02-23 08:41 | PDOC ---
Exam Note: Jose Daniel Note: This note is a late entry for 02/22/2021 covers elements not covered in my initial note. Subjective: The patient was seen individually in the evening of 02/22/2021 with Tanner SANTOS, discussed and reviewed the chart. She slept 1 hour previous night. She refused her h.s. medications. 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 She is compliant with her medications today. Review of Systems: Ambulation impaired in wheelchair. Her head bent forward. No CV, , pulmonary, eye, ENT system symptoms on review. Reliability poor. Mental Status Exam: The patient is oriented to herself. She was not very verbal, interactive, somewhat withdrawn, paranoid as I met with her individually in the hallway. Insight and judgment, recent and remote memory, attention and concentration, fund of knowledge is poor consistent with her diagnoses. Laboratory Data: Reviewed. Impression: Major neurocognitive disorder Alzheimer vascular with delusion, depression, behavioral disturbance. Anxiety disorder unspecified. Impulse control disorder unspecified. Plan: No change from initial note but given her paranoia we may need to increase the scheduled Seroquel in due course. Maintain Zoloft at current dosage. Assessment: Vital Signs/I&O: Vital Signs Date Time Temp Pulse Resp B/P (MAP) Pulse Ox O2 Delivery O2 Flow Rate FiO2 02/23/21 05:25 96.8 66 18 116/66 (83) 95 Room Air I & O 02/22/21 02/22/21 02/23/21 15:00 23:00 07:00 Intake Total 600 ml 480 ml Balance 600 ml 480 ml Labs: Laboratory Tests Test 02/22/21 09:03 02/22/21 11:45 02/22/21 16:53 02/22/21 19:07 White Blood Count 4.6 x10^3/uL (4.0-11.0) Red Blood Count 4.39 x10^6/uL (3.50-5.40) Hemoglobin 13.4 g/dL (12.0-15.5) Hematocrit 41.2 % (36.0-47.0) Mean Corpuscular Volume 94 fL (79-100) Mean Corpuscular Hemoglobin 30 pg (25-35) Mean Corpuscular Hemoglobin Concent 33 g/dL (31-37) Red Cell Distribution Width 17.5 % (11.5-14.5) H Platelet Count 185 x10^3/uL (140-400) Neutrophils (%) (Auto) 55 % (31-73) Lymphocytes (%) (Auto) 37 % (24-48) Monocytes (%) (Auto) 7 % (0-9) Eosinophils (%) (Auto) 1 % (0-3) Basophils (%) (Auto) 0 % (0-3) Neutrophils # (Auto) 2.5 x10^3uL (1.8-7.7) Lymphocytes # (Auto) 1.7 x10^3/uL (1.0-4.8) Monocytes # (Auto) 0.3 x10^3/uL (0.0-1.1) Eosinophils # (Auto) 0.1 x10^3/uL (0.0-0.7) Basophils # (Auto) 0.0 x10^3/uL (0.0-0.2) Glucose (Fingerstick) 92 mg/dL (70-99) 95 mg/dL (70-99) 139 mg/dL (70-99) H Test 02/23/21 06:05 02/23/21 06:30 02/23/21 08:07 Blood pH 7.38 (7.35-7.45) Blood Gas PCO2 49 mmHg (35-45) H Blood Gas PO2 73 mmHg (71-100) Blood Gas HCO3 29 mmol/L (22-26) H Arterial Bld O2 Saturation (Calc) 94 % (92-99) FiO2 21 % White Blood Count 4.0 x10^3/uL (4.0-11.0) Red Blood Count 3.91 x10^6/uL (3.50-5.40) Hemoglobin 11.7 g/dL (12.0-15.5) L Hematocrit 36.7 % (36.0-47.0) Mean Corpuscular Volume 94 fL (79-100) Mean Corpuscular Hemoglobin 30 pg (25-35) Mean Corpuscular Hemoglobin Concent 32 g/dL (31-37) Red Cell Distribution Width 17.7 % (11.5-14.5) H Platelet Count 159 x10^3/uL (140-400) Neutrophils (%) (Auto) 43 % (31-73) Lymphocytes (%) (Auto) 44 % (24-48) Monocytes (%) (Auto) 10 % (0-9) H Eosinophils (%) (Auto) 2 % (0-3) Basophils (%) (Auto) 1 % (0-3) Neutrophils # (Auto) 1.7 x10^3uL (1.8-7.7) L Lymphocytes # (Auto) 1.8 x10^3/uL (1.0-4.8) Monocytes # (Auto) 0.4 x10^3/uL (0.0-1.1) Eosinophils # (Auto) 0.1 x10^3/uL (0.0-0.7) Basophils # (Auto) 0.0 x10^3/uL (0.0-0.2) Sodium Level 146 mmol/L (136-145) H Potassium Level 3.7 mmol/L (3.5-5.1) Chloride Level 110 mmol/L (98-107) H Carbon Dioxide Level 29 mmol/L (21-32) Anion Gap 7 (6-14) Blood Urea Nitrogen 23 mg/dL (7-20) H Creatinine 1.4 mg/dL (0.6-1.0) H Estimated GFR (Cockcroft-Gault) 35.8 BUN/Creatinine Ratio 16 (6-20) Glucose Level 95 mg/dL (70-99) Calcium Level 8.4 mg/dL (8.5-10.1) L Total Bilirubin 0.2 mg/dL (0.2-1.0) Aspartate Amino Transferase (AST) 18 U/L (15-37) Alanine Aminotransferase (ALT) 25 U/L (14-59) Alkaline Phosphatase 122 U/L (46-116) H Troponin I Quantitative < 0.017 ng/mL (0-0.055) Total Protein 6.2 g/dL (6.4-8.2) L Albumin 2.5 g/dL (3.4-5.0) L Albumin/Globulin Ratio 0.7 (1.0-1.7) L Glucose (Fingerstick) 84 mg/dL (70-99) Current Medications: Meds: Laboratory Tests Test 02/22/21 09:03 02/22/21 11:45 02/22/21 16:53 02/22/21 19:07 White Blood Count 4.6 x10^3/uL Red Blood Count 4.39 x10^6/uL Hemoglobin 13.4 g/dL Hematocrit 41.2 % Mean Corpuscular Volume 94 fL Mean Corpuscular Hemoglobin 30 pg Mean Corpuscular Hemoglobin Concent 33 g/dL Red Cell Distribution Width 17.5 % Platelet Count 185 x10^3/uL Neutrophils (%) (Auto) 55 % Lymphocytes (%) (Auto) 37 % Monocytes (%) (Auto) 7 % Eosinophils (%) (Auto) 1 % Basophils (%) (Auto) 0 % Neutrophils # (Auto) 2.5 x10^3uL Lymphocytes # (Auto) 1.7 x10^3/uL Monocytes # (Auto) 0.3 x10^3/uL Eosinophils # (Auto) 0.1 x10^3/uL Basophils # (Auto) 0.0 x10^3/uL Glucose (Fingerstick) 92 mg/dL 95 mg/dL 139 mg/dL Test 02/23/21 06:05 02/23/21 06:30 02/23/21 08:07 Blood Gas pH 7.38 Blood Gas PCO2 49 mmHg Blood Gas PO2 73 mmHg Blood Gas HCO3 29 mmol/L Arterial Bld O2 Saturation (Calc) 94 % FiO2 21 % White Blood Count 4.0 x10^3/uL Red Blood Count 3.91 x10^6/uL Hemoglobin 11.7 g/dL Hematocrit 36.7 % Mean Corpuscular Volume 94 fL Mean Corpuscular Hemoglobin 30 pg Mean Corpuscular Hemoglobin Concent 32 g/dL Red Cell Distribution Width 17.7 % Platelet Count 159 x10^3/uL Neutrophils (%) (Auto) 43 % Lymphocytes (%) (Auto) 44 % Monocytes (%) (Auto) 10 % Eosinophils (%) (Auto) 2 % Basophils (%) (Auto) 1 % Neutrophils # (Auto) 1.7 x10^3uL Lymphocytes # (Auto) 1.8 x10^3/uL Monocytes # (Auto) 0.4 x10^3/uL Eosinophils # (Auto) 0.1 x10^3/uL Basophils # (Auto) 0.0 x10^3/uL Sodium Level 146 mmol/L Potassium Level 3.7 mmol/L Chloride Level 110 mmol/L Carbon Dioxide Level 29 mmol/L Anion Gap 7 Blood Urea Nitrogen 23 mg/dL Creatinine 1.4 mg/dL Estimated GFR (Cockcroft-Gault) 35.8 BUN/Creatinine Ratio 16 Glucose Level 95 mg/dL Calcium Level 8.4 mg/dL Total Bilirubin 0.2 mg/dL Aspartate Amino Transf (AST/SGOT) 18 U/L Alanine Aminotransferase (ALT/SGPT) 25 U/L Alkaline Phosphatase 122 U/L Troponin I Quantitative < 0.017 ng/mL Total Protein 6.2 g/dL Albumin 2.5 g/dL Albumin/Globulin Ratio 0.7 Glucose (Fingerstick) 84 mg/dL Current Medications Medications (Trade) Dose Ordered Sig/Meet Route PRN Reason Start Time Stop Time Status Last Admin Dose Admin Acetaminophen (Tylenol) 650 mg PRN Q6HRS PRN PO MILD PAIN / TEMP > 100.3'F 02/02/21 11:00 02/23/21 05:11 Multi-Ingredient Ointment (Analgesic Paxton) 1 vu PRN QID PRN TP MUSCLE PAIN 02/02/21 11:00 Al Hydroxide/Mg Hydroxide (Mylanta Plus Xs) 15 ml PRN AFTMEALHC PRN PO DYSPEPSIA 02/02/21 11:00 Magnesium Hydroxide (Milk Of Magnesia) 2,400 mg PRN QHS PRN PO 2ND CHOICE CONSTIPATION 02/02/21 11:00 02/12/21 05:24 Acetaminophen (Tylenol) 650 mg PRN Q6HRS PRN PO pain or fever 02/02/21 13:45 UNV Amiodarone HCl (Cordarone) 200 mg DAILY PO 02/03/21 09:00 02/22/21 08:42 Apixaban (Eliquis) 2.5 mg BID PO 02/02/21 21:00 02/22/21 20:37 Carvedilol (Coreg) 12.5 mg BIDWMEALS PO 02/02/21 17:00 02/22/21 17:36 Cyclobenzaprine HCl (Flexeril) 10 mg DAILY PO 02/03/21 09:00 02/22/21 08:42 Fluconazole (Diflucan) 100 mg DAILY PO 02/03/21 09:00 02/07/21 09:30 DC 02/07/21 08:39 Furosemide (Lasix) 40 mg DAILY PO 02/03/21 09:00 02/02/21 16:16 DC Haloperidol (Haldol) 1 mg DAILY PO 02/03/21 09:00 02/03/21 14:19 DC 02/03/21 08:55 Hyoscyamine (Anaspaz) 0.125 mg PRN Q8HRS PRN PO GI SYMPTOMS 02/02/21 13:45 Levothyroxine Sodium (Synthroid) 50 mcg DAILY06 PO 02/03/21 06:00 02/23/21 05:11 Lorazepam (Ativan) 1 mg 1500 PO 02/02/21 15:00 02/03/21 14:19 DC 02/02/21 16:43 Losartan Potassium (Cozaar) 50 mg DAILY PO 02/03/21 09:00 02/02/21 16:16 DC Lubiprostone (Amitiza) 24 mcg BID PO 02/02/21 21:00 02/22/21 20:37 Nystatin (Nystop) 1 vu PRN DAILY PRN TP YEAST UNDER BREAST 02/02/21 13:45 02/08/21 22:44 DC 02/08/21 10:17 Olanzapine (ZyPREXA) 5 mg BID PO 02/02/21 21:00 02/10/21 11:12 DC 02/10/21 08:33 Potassium Chloride (Klor-Con) 10 meq BID PO 02/02/21 21:00 02/22/21 20:37 Pregabalin (Lyrica) 75 mg BID PO 02/02/21 21:00 02/22/21 20:37 Quetiapine Fumarate (SEROquel) 50 mg PRN QHS PRN PO AGITATION 02/02/21 13:45 02/22/21 20:37 Quetiapine Fumarate (SEROquel) 25 mg DAILY PO 02/03/21 09:00 02/10/21 11:12 DC 02/10/21 08:32 Fluticasone/ Vilanterol (Breo Ellipta 100-25 Mcg) 1 puff DAILY INH 02/03/21 09:00 02/22/21 08:43 Non-Formulary Medication (Glucagon (Baqsimi)) 3 mg PRN PRN NS HYPOGLYCEMIA 02/02/21 13:45 UNV Insulin Glargine (Lantus Syringe) 8 unit QHS SQ 02/02/21 21:00 02/17/21 18:26 DC 02/11/21 21:05 Non-Formulary Medication (Insulin Lispro (Humalog)) 100 unit ACHS PRN SQ DIABETES MELLITIS 02/02/21 13:45 02/02/21 18:17 DC Pantoprazole Sodium (Protonix) 40 mg DAILY PO 02/03/21 09:00 02/22/21 08:40 Polyethylene Glycol (miraLAX) 17 gm PRN BID PRN PO 1ST CHOICE CONSTIPATION 02/02/21 14:15 02/13/21 08:00 Furosemide (Lasix) 20 mg DAILY PO 02/03/21 09:00 02/22/21 08:42 Losartan Potassium (Cozaar) 25 mg DAILY PO 02/03/21 09:00 02/22/21 08:41 Non-Formulary Medication (Insulin Lispro (Humalog)) 100 unit TIDACHC SQ 02/02/21 21:00 UNV Olanzapine (ZyPREXA ZYDIS) 2.5 mg PRN Q2HR PRN PO PSYCHOSIS 02/02/21 18:30 02/22/21 15:35 Insulin Human Lispro (HumaLOG) 0-5 UNITS TIDWMEALS SQ 02/03/21 08:00 02/15/21 12:31 Dextrose (Dextrose 50%-Water Syringe) 12.5 gm PRN Q15MIN PRN IV SEE COMMENTS 02/02/21 18:45 Lorazepam (Ativan) 0.5 mg 1500 PO 02/03/21 15:00 02/05/21 23:50 DC 02/05/21 17:54 Nystatin (Nystop) 1 vu BID TP 02/09/21 09:00 02/22/21 20:38 Olanzapine (ZyPREXA) 5 mg DAILY PO 02/11/21 09:00 02/21/21 20:20 DC 02/21/21 08:47 Olanzapine (ZyPREXA) 7.5 mg QHS PO 02/10/21 21:00 02/21/21 20:20 DC 02/19/21 19:32 Fluticasone Propionate (Flonase) 2 spray DAILY NS 02/20/21 09:00 02/22/21 08:43 Quetiapine Fumarate (SEROquel) 12.5 mg TIDAFTMEAL PO 02/22/21 09:00 02/22/21 14:21 DC 02/22/21 13:31 Sertraline HCl (Zoloft) 50 mg DAILY PO 02/22/21 09:00 02/22/21 08:44 Quetiapine Fumarate (SEROquel) 12.5 mg 0900,1300,1700 PO 02/22/21 17:00 02/22/21 17:37 Current Medications Medications (Trade) Dose Ordered Sig/Meet Route PRN Reason Start Time Stop Time Status Last Admin Dose Admin Quetiapine Fumarate (SEROquel) 12.5 mg TIDAFTMEAL PO 02/22/21 09:00 02/22/21 14:21 DC 02/22/21 13:31 Sertraline HCl (Zoloft) 50 mg DAILY PO 02/22/21 09:00 02/22/21 08:44 Quetiapine Fumarate (SEROquel) 12.5 mg 0900,1300,1700 PO 02/22/21 17:00 02/22/21 17:37 I have reviewed the current psychotropics carefully including drug interactions. Risk benefit ratio favors no change other than as noted in my dictated progress note. 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
[2021-02-23] MEDS: CARVEDILOL 12.5 MG TABLET PO SCH ×2 (10:30→17:22)
[2021-02-23] MEDS: NYSTATIN TOPICAL POWDER 15GM BOTTLE. TP SCH ×2 (10:30→20:21)
[2021-02-23] MEDS: FLUTICASONE/VILANTEROL 100/25 INHALER. INH SCH (10:30)
[2021-02-23] MEDS: PANTOPRAZOLE 40 MG TABLET. PO SCH (10:30)
[2021-02-23] MEDS: FLUTICASONE 50MCG/NASAL SPRAY 16GM BOTTLE. NS SCH (10:30)
[2021-02-23] MEDS: AMIODARONE HCL 200 MG TABLET. PO SCH (10:30)
[2021-02-23] MEDS: PREGABALIN 75 MG CAPSULE PO SCH ×2 (10:30→20:20)
[2021-02-23] MEDS: APIXABAN 2.5 MG TABLET PO SCH ×2 (10:30→20:20)
[2021-02-23] MEDS: QUEtiapine 25 MG TABLET. PO SCH ×3 (10:30→17:23)
[2021-02-23] MEDS: FUROSEMIDE 20 MG TABLET PO SCH (10:30)
[2021-02-23] MEDS: CYCLOBENZAPRINE 10 MG TABLET. PO SCH (10:30)
[2021-02-23] MEDS: LOSARTAN 25 MG TABLET. PO SCH (10:30)
[2021-02-23] MEDS: LUBIPROSTONE 24 MCG CAPSULE PO SCH ×2 (10:30→20:21)
[2021-02-23] MEDS: POTASSIUM CHLORIDE 10 MEQ TABLET.ER. PO SCH ×2 (10:30→20:20)
[2021-02-23] MEDS: SERTRALINE 50 MG TABLET. PO SCH (10:30)
[2021-02-23 15:54] VITALS: BP 90/54
--- NOTE | 2021-02-23 22:04 | PDOC ---
Exam Note: Jose Daniel Note: Please also refer to the separate dictated note~for this date of service dictated separately.~Patient seen individually. Discussed the patient with Nursing staff reviewed the chart.~Reviewed interim history and current functioning. Reviewed vital signs,~Labs/ Radiology~and current medications noted below. Continue current treatment with the changes noted in the dictated addendum note Assessment: Vital Signs/I&O: Vital Signs Date Time Temp Pulse Resp B/P (MAP) Pulse Ox O2 Delivery O2 Flow Rate FiO2 02/23/21 17:22 60 90/54 02/23/21 15:54 96.7 16 92 02/23/21 05:25 Room Air I & O 02/22/21 02/22/21 02/23/21 15:00 23:00 07:00 Intake Total 600 ml 480 ml Balance 600 ml 480 ml Labs: Laboratory Tests Test 02/23/21 06:05 02/23/21 06:30 02/23/21 08:07 02/23/21 11:58 Blood pH 7.38 (7.35-7.45) Blood Gas PCO2 49 mmHg (35-45) H Blood Gas PO2 73 mmHg (71-100) Blood Gas HCO3 29 mmol/L (22-26) H Arterial Bld O2 Saturation (Calc) 94 % (92-99) FiO2 21 % White Blood Count 4.0 x10^3/uL (4.0-11.0) Red Blood Count 3.91 x10^6/uL (3.50-5.40) Hemoglobin 11.7 g/dL (12.0-15.5) L Hematocrit 36.7 % (36.0-47.0) Mean Corpuscular Volume 94 fL (79-100) Mean Corpuscular Hemoglobin 30 pg (25-35) Mean Corpuscular Hemoglobin Concent 32 g/dL (31-37) Red Cell Distribution Width 17.7 % (11.5-14.5) H Platelet Count 159 x10^3/uL (140-400) Neutrophils (%) (Auto) 43 % (31-73) Lymphocytes (%) (Auto) 44 % (24-48) Monocytes (%) (Auto) 10 % (0-9) H Eosinophils (%) (Auto) 2 % (0-3) Basophils (%) (Auto) 1 % (0-3) Neutrophils # (Auto) 1.7 x10^3uL (1.8-7.7) L Lymphocytes # (Auto) 1.8 x10^3/uL (1.0-4.8) Monocytes # (Auto) 0.4 x10^3/uL (0.0-1.1) Eosinophils # (Auto) 0.1 x10^3/uL (0.0-0.7) Basophils # (Auto) 0.0 x10^3/uL (0.0-0.2) Sodium Level 146 mmol/L (136-145) H Potassium Level 3.7 mmol/L (3.5-5.1) Chloride Level 110 mmol/L (98-107) H Carbon Dioxide Level 29 mmol/L (21-32) Anion Gap 7 (6-14) Blood Urea Nitrogen 23 mg/dL (7-20) H Creatinine 1.4 mg/dL (0.6-1.0) H Estimated GFR (Cockcroft-Gault) 35.8 BUN/Creatinine Ratio 16 (6-20) Glucose Level 95 mg/dL (70-99) Calcium Level 8.4 mg/dL (8.5-10.1) L Total Bilirubin 0.2 mg/dL (0.2-1.0) Aspartate Amino Transferase (AST) 18 U/L (15-37) Alanine Aminotransferase (ALT) 25 U/L (14-59) Alkaline Phosphatase 122 U/L (46-116) H Troponin I Quantitative < 0.017 ng/mL (0-0.055) Total Protein 6.2 g/dL (6.4-8.2) L Albumin 2.5 g/dL (3.4-5.0) L Albumin/Globulin Ratio 0.7 (1.0-1.7) L Glucose (Fingerstick) 84 mg/dL (70-99) 99 mg/dL (70-99) Test 02/23/21 16:39 02/23/21 19:05 Glucose (Fingerstick) 105 mg/dL (70-99) H 117 mg/dL (70-99) H Current Medications: Meds: Laboratory Tests Test 02/23/21 06:05 02/23/21 06:30 02/23/21 08:07 02/23/21 11:58 Blood Gas pH 7.38 Blood Gas PCO2 49 mmHg Blood Gas PO2 73 mmHg Blood Gas HCO3 29 mmol/L Arterial Bld O2 Saturation (Calc) 94 % FiO2 21 % White Blood Count 4.0 x10^3/uL Red Blood Count 3.91 x10^6/uL Hemoglobin 11.7 g/dL Hematocrit 36.7 % Mean Corpuscular Volume 94 fL Mean Corpuscular Hemoglobin 30 pg Mean Corpuscular Hemoglobin Concent 32 g/dL Red Cell Distribution Width 17.7 % Platelet Count 159 x10^3/uL Neutrophils (%) (Auto) 43 % Lymphocytes (%) (Auto) 44 % Monocytes (%) (Auto) 10 % Eosinophils (%) (Auto) 2 % Basophils (%) (Auto) 1 % Neutrophils # (Auto) 1.7 x10^3uL Lymphocytes # (Auto) 1.8 x10^3/uL Monocytes # (Auto) 0.4 x10^3/uL Eosinophils # (Auto) 0.1 x10^3/uL Basophils # (Auto) 0.0 x10^3/uL Sodium Level 146 mmol/L Potassium Level 3.7 mmol/L Chloride Level 110 mmol/L Carbon Dioxide Level 29 mmol/L Anion Gap 7 Blood Urea Nitrogen 23 mg/dL Creatinine 1.4 mg/dL Estimated GFR (Cockcroft-Gault) 35.8 BUN/Creatinine Ratio 16 Glucose Level 95 mg/dL Calcium Level 8.4 mg/dL Total Bilirubin 0.2 mg/dL Aspartate Amino Transf (AST/SGOT) 18 U/L Alanine Aminotransferase (ALT/SGPT) 25 U/L Alkaline Phosphatase 122 U/L Troponin I Quantitative < 0.017 ng/mL Total Protein 6.2 g/dL Albumin 2.5 g/dL Albumin/Globulin Ratio 0.7 Glucose (Fingerstick) 84 mg/dL 99 mg/dL Test 02/23/21 16:39 02/23/21 19:05 Glucose (Fingerstick) 105 mg/dL 117 mg/dL Current Medications Medications (Trade) Dose Ordered Sig/Meet Route PRN Reason Start Time Stop Time Status Last Admin Dose Admin Acetaminophen (Tylenol) 650 mg PRN Q6HRS PRN PO MILD PAIN / TEMP > 100.3'F 02/02/21 11:00 02/23/21 05:11 Multi-Ingredient Ointment (Analgesic Barnum) 1 vu PRN QID PRN TP MUSCLE PAIN 02/02/21 11:00 Al Hydroxide/Mg Hydroxide (Mylanta Plus Xs) 15 ml PRN AFTMEALHC PRN PO DYSPEPSIA 02/02/21 11:00 Magnesium Hydroxide (Milk Of Magnesia) 2,400 mg PRN QHS PRN PO 2ND CHOICE CONSTIPATION 02/02/21 11:00 02/12/21 05:24 Acetaminophen (Tylenol) 650 mg PRN Q6HRS PRN PO pain or fever 02/02/21 13:45 UNV Amiodarone HCl (Cordarone) 200 mg DAILY PO 02/03/21 09:00 02/23/21 10:30 Apixaban (Eliquis) 2.5 mg BID PO 02/02/21 21:00 02/23/21 20:20 Carvedilol (Coreg) 12.5 mg BIDWMEALS PO 02/02/21 17:00 02/23/21 17:22 Cyclobenzaprine HCl (Flexeril) 10 mg DAILY PO 02/03/21 09:00 02/23/21 10:30 Fluconazole (Diflucan) 100 mg DAILY PO 02/03/21 09:00 02/07/21 09:30 DC 02/07/21 08:39 Furosemide (Lasix) 40 mg DAILY PO 02/03/21 09:00 02/02/21 16:16 DC Haloperidol (Haldol) 1 mg DAILY PO 02/03/21 09:00 02/03/21 14:19 DC 02/03/21 08:55 Hyoscyamine (Anaspaz) 0.125 mg PRN Q8HRS PRN PO GI SYMPTOMS 02/02/21 13:45 Levothyroxine Sodium (Synthroid) 50 mcg DAILY06 PO 02/03/21 06:00 02/23/21 05:11 Lorazepam (Ativan) 1 mg 1500 PO 02/02/21 15:00 02/03/21 14:19 DC 02/02/21 16:43 Losartan Potassium (Cozaar) 50 mg DAILY PO 02/03/21 09:00 02/02/21 16:16 DC Lubiprostone (Amitiza) 24 mcg BID PO 02/02/21 21:00 02/23/21 20:21 Nystatin (Nystop) 1 vu PRN DAILY PRN TP YEAST UNDER BREAST 02/02/21 13:45 02/08/21 22:44 DC 02/08/21 10:17 Olanzapine (ZyPREXA) 5 mg BID PO 02/02/21 21:00 02/10/21 11:12 DC 02/10/21 08:33 Potassium Chloride (Klor-Con) 10 meq BID PO 02/02/21 21:00 02/23/21 20:20 Pregabalin (Lyrica) 75 mg BID PO 02/02/21 21:00 02/23/21 20:20 Quetiapine Fumarate (SEROquel) 50 mg PRN QHS PRN PO AGITATION 02/02/21 13:45 02/22/21 20:37 Quetiapine Fumarate (SEROquel) 25 mg DAILY PO 02/03/21 09:00 02/10/21 11:12 DC 02/10/21 08:32 Fluticasone/ Vilanterol (Breo Ellipta 100-25 Mcg) 1 puff DAILY INH 02/03/21 09:00 02/23/21 10:30 Non-Formulary Medication (Glucagon (Baqsimi)) 3 mg PRN PRN NS HYPOGLYCEMIA 02/02/21 13:45 UNV Insulin Glargine (Lantus Syringe) 8 unit QHS SQ 02/02/21 21:00 02/17/21 18:26 DC 02/11/21 21:05 Non-Formulary Medication (Insulin Lispro (Humalog)) 100 unit ACHS PRN SQ DIABETES MELLITIS 02/02/21 13:45 02/02/21 18:17 DC Pantoprazole Sodium (Protonix) 40 mg DAILY PO 02/03/21 09:00 02/23/21 10:30 Polyethylene Glycol (miraLAX) 17 gm PRN BID PRN PO 1ST CHOICE CONSTIPATION 02/02/21 14:15 02/13/21 08:00 Furosemide (Lasix) 20 mg DAILY PO 02/03/21 09:00 02/23/21 10:30 Losartan Potassium (Cozaar) 25 mg DAILY PO 02/03/21 09:00 02/23/21 10:30 Non-Formulary Medication (Insulin Lispro (Humalog)) 100 unit TIDACHC SQ 02/02/21 21:00 UNV Olanzapine (ZyPREXA ZYDIS) 2.5 mg PRN Q2HR PRN PO PSYCHOSIS 02/02/21 18:30 02/22/21 15:35 Insulin Human Lispro (HumaLOG) 0-5 UNITS TIDWMEALS SQ 02/03/21 08:00 02/15/21 12:31 Dextrose (Dextrose 50%-Water Syringe) 12.5 gm PRN Q15MIN PRN IV SEE COMMENTS 02/02/21 18:45 Lorazepam (Ativan) 0.5 mg 1500 PO 02/03/21 15:00 02/05/21 23:50 DC 02/05/21 17:54 Nystatin (Nystop) 1 vu BID TP 02/09/21 09:00 02/23/21 20:21 Olanzapine (ZyPREXA) 5 mg DAILY PO 02/11/21 09:00 02/21/21 20:20 DC 02/21/21 08:47 Olanzapine (ZyPREXA) 7.5 mg QHS PO 02/10/21 21:00 02/21/21 20:20 DC 02/19/21 19:32 Fluticasone Propionate (Flonase) 2 spray DAILY NS 02/20/21 09:00 02/23/21 10:30 Quetiapine Fumarate (SEROquel) 12.5 mg TIDAFTMEAL PO 02/22/21 09:00 02/22/21 14:21 DC 02/22/21 13:31 Sertraline HCl (Zoloft) 50 mg DAILY PO 02/22/21 09:00 02/23/21 10:30 Quetiapine Fumarate (SEROquel) 12.5 mg 0900,1300,1700 PO 02/22/21 17:00 02/23/21 17:23 I have reviewed the current psychotropics carefully including drug interactions. Risk benefit ratio favors no change other than as noted in my dictated progress note. Diagnosis: Problems: (1) Impulse control disorder, unspecified (2) Anxiety disorder, unspecified (3) Dementia, vascular, with depression (4) Dementia, vascular, with delusions (5) Dementia in Alzheimer's disease with depression (6) Dementia in Alzheimer's disease with delusions (7) Major neurocognitive disorder (8) Dementia of the Alzheimer's type with early onset with behavioral disturbance JARRETT LEONE MD February 23, 2021 22:03
[2021-02-24] MEDS: ACETAMINOPHEN 325 MG TABLET PO PRN (03:23)
[2021-02-24] MEDS: LEVOTHYROXINE 50 MCG TABLET PO SCH (05:22)
[2021-02-24 06:06] VITALS: BP 133/75
--- NOTE | 2021-02-24 06:42 | PDOC ---
Exam Note: Jose Daniel Note: This note is a late entry for 02/23/2021 covers elements not covered in my initial note. Subjective: The patient was seen individually in the evening of 02/23/2021 with Tnaner SANTOS, discussed and reviewed the chart. She slept 5 hours previous night. Yesterday the patient was non-compliant and somewhat irritable and dismissive. Chest x-ray showed atelectasis. Dr. Chinchilla is following this. She talks to herself at times but much more pleasant today as I met with her. Review of Systems: Ambulation impaired in wheelchair. Eye contact is poor. She is seated in wheelchair, head bent forward. No CV, , pulmonary, eye, ENT system symptoms on review. Mental Status Exam: The patient is oriented to herself. Speech moderate latency, low in rate and rhythm, low in volume. Abstraction is fair. Computation impaired. Language function intact. Mood and affect withdrawn, less irritable and anxious. Laboratory Data: Reviewed. Impression: Major neurocognitive disorder Alzheimer vascular with delusion, depression, behavioral disturbance. Anxiety disorder unspecified. Impulse control disorder unspecified. Plan: No change from initial note. Assessment: Vital Signs/I&O: Vital Signs Date Time Temp Pulse Resp B/P (MAP) Pulse Ox O2 Delivery O2 Flow Rate FiO2 02/24/21 06:06 96.8 66 16 133/75 (94) 95 Room Air I & O 02/23/21 02/23/21 02/24/21 15:00 23:00 07:00 Intake Total 0 ml 840 ml Balance 0 ml 840 ml Labs: Laboratory Tests Test 02/23/21 08:07 02/23/21 11:58 02/23/21 16:39 02/23/21 19:05 Glucose (Fingerstick) 84 mg/dL (70-99) 99 mg/dL (70-99) 105 mg/dL (70-99) H 117 mg/dL (70-99) H Current Medications: Meds: Laboratory Tests Test 02/23/21 08:07 02/23/21 11:58 02/23/21 16:39 02/23/21 19:05 Glucose (Fingerstick) 84 mg/dL 99 mg/dL 105 mg/dL 117 mg/dL Current Medications Medications (Trade) Dose Ordered Sig/Meet Route PRN Reason Start Time Stop Time Status Last Admin Dose Admin Acetaminophen (Tylenol) 650 mg PRN Q6HRS PRN PO MILD PAIN / TEMP > 100.3'F 02/02/21 11:00 02/24/21 03:23 Multi-Ingredient Ointment (Analgesic [place]anan) 1 vu PRN QID PRN TP MUSCLE PAIN 02/02/21 11:00 Al Hydroxide/Mg Hydroxide (Mylanta Plus Xs) 15 ml PRN AFTMEALHC PRN PO DYSPEPSIA 02/02/21 11:00 Magnesium Hydroxide (Milk Of Magnesia) 2,400 mg PRN QHS PRN PO 2ND CHOICE CONSTIPATION 02/02/21 11:00 02/12/21 05:24 Acetaminophen (Tylenol) 650 mg PRN Q6HRS PRN PO pain or fever 02/02/21 13:45 UNV Amiodarone HCl (Cordarone) 200 mg DAILY PO 02/03/21 09:00 02/23/21 10:30 Apixaban (Eliquis) 2.5 mg BID PO 02/02/21 21:00 02/23/21 20:20 Carvedilol (Coreg) 12.5 mg BIDWMEALS PO 02/02/21 17:00 02/23/21 17:22 Cyclobenzaprine HCl (Flexeril) 10 mg DAILY PO 02/03/21 09:00 02/23/21 10:30 Fluconazole (Diflucan) 100 mg DAILY PO 02/03/21 09:00 02/07/21 09:30 DC 02/07/21 08:39 Furosemide (Lasix) 40 mg DAILY PO 02/03/21 09:00 02/02/21 16:16 DC Haloperidol (Haldol) 1 mg DAILY PO 02/03/21 09:00 02/03/21 14:19 DC 02/03/21 08:55 Hyoscyamine (Anaspaz) 0.125 mg PRN Q8HRS PRN PO GI SYMPTOMS 02/02/21 13:45 Levothyroxine Sodium (Synthroid) 50 mcg DAILY06 PO 02/03/21 06:00 02/24/21 05:22 Lorazepam (Ativan) 1 mg 1500 PO 02/02/21 15:00 02/03/21 14:19 DC 02/02/21 16:43 Losartan Potassium (Cozaar) 50 mg DAILY PO 02/03/21 09:00 02/02/21 16:16 DC Lubiprostone (Amitiza) 24 mcg BID PO 02/02/21 21:00 02/23/21 20:21 Nystatin (Nystop) 1 vu PRN DAILY PRN TP YEAST UNDER BREAST 02/02/21 13:45 02/08/21 22:44 DC 02/08/21 10:17 Olanzapine (ZyPREXA) 5 mg BID PO 02/02/21 21:00 02/10/21 11:12 DC 02/10/21 08:33 Potassium Chloride (Klor-Con) 10 meq BID PO 02/02/21 21:00 02/23/21 20:20 Pregabalin (Lyrica) 75 mg BID PO 02/02/21 21:00 02/23/21 20:20 Quetiapine Fumarate (SEROquel) 50 mg PRN QHS PRN PO AGITATION 02/02/21 13:45 02/22/21 20:37 Quetiapine Fumarate (SEROquel) 25 mg DAILY PO 02/03/21 09:00 02/10/21 11:12 DC 02/10/21 08:32 Fluticasone/ Vilanterol (Breo Ellipta 100-25 Mcg) 1 puff DAILY INH 02/03/21 09:00 02/23/21 10:30 Non-Formulary Medication (Glucagon (Baqsimi)) 3 mg PRN PRN NS HYPOGLYCEMIA 02/02/21 13:45 UNV Insulin Glargine (Lantus Syringe) 8 unit QHS SQ 02/02/21 21:00 02/17/21 18:26 DC 02/11/21 21:05 Non-Formulary Medication (Insulin Lispro (Humalog)) 100 unit ACHS PRN SQ DIABETES MELLITIS 02/02/21 13:45 02/02/21 18:17 DC Pantoprazole Sodium (Protonix) 40 mg DAILY PO 02/03/21 09:00 02/23/21 10:30 Polyethylene Glycol (miraLAX) 17 gm PRN BID PRN PO 1ST CHOICE CONSTIPATION 02/02/21 14:15 02/13/21 08:00 Furosemide (Lasix) 20 mg DAILY PO 02/03/21 09:00 02/23/21 10:30 Losartan Potassium (Cozaar) 25 mg DAILY PO 02/03/21 09:00 02/23/21 10:30 Non-Formulary Medication (Insulin Lispro (Humalog)) 100 unit TIDACHC SQ 02/02/21 21:00 UNV Olanzapine (ZyPREXA ZYDIS) 2.5 mg PRN Q2HR PRN PO PSYCHOSIS 02/02/21 18:30 02/22/21 15:35 Insulin Human Lispro (HumaLOG) 0-5 UNITS TIDWMEALS SQ 02/03/21 08:00 02/15/21 12:31 Dextrose (Dextrose 50%-Water Syringe) 12.5 gm PRN Q15MIN PRN IV SEE COMMENTS 02/02/21 18:45 Lorazepam (Ativan) 0.5 mg 1500 PO 02/03/21 15:00 02/05/21 23:50 DC 02/05/21 17:54 Nystatin (Nystop) 1 vu BID TP 02/09/21 09:00 02/23/21 20:21 Olanzapine (ZyPREXA) 5 mg DAILY PO 02/11/21 09:00 02/21/21 20:20 DC 02/21/21 08:47 Olanzapine (ZyPREXA) 7.5 mg QHS PO 02/10/21 21:00 02/21/21 20:20 DC 02/19/21 19:32 Fluticasone Propionate (Flonase) 2 spray DAILY NS 02/20/21 09:00 02/23/21 10:30 Quetiapine Fumarate (SEROquel) 12.5 mg TIDAFTMEAL PO 02/22/21 09:00 02/22/21 14:21 DC 02/22/21 13:31 Sertraline HCl (Zoloft) 50 mg DAILY PO 02/22/21 09:00 02/23/21 10:30 Quetiapine Fumarate (SEROquel) 12.5 mg 0900,1300,1700 PO 02/22/21 17:00 02/23/21 17:23 I have reviewed the current psychotropics carefully including drug interactions. Risk benefit ratio favors no change other than as noted in my dictated progress note. Diagnosis: Problems: (1) Impulse control disorder, unspecified (2) Anxiety disorder, unspecified (3) Dementia, vascular, with depression (4) Dementia, vascular, with delusions (5) Dementia in Alzheimer's disease with depression (6) Dementia in Alzheimer's disease with delusions (7) Major neurocognitive disorder (8) Dementia of the Alzheimer's type with early onset with behavioral disturbance JARRETT LEONE MD February 24, 2021 06:42
[2021-02-24] MEDS: INSULIN LISPRO 300 UNITS/3 ML VIAL. SQ SCH ×3 (08:00→17:00)
[2021-02-24] MEDS: POTASSIUM CHLORIDE 10 MEQ TABLET.ER. PO SCH ×2 (08:18→20:27)
[2021-02-24] MEDS: QUEtiapine 25 MG TABLET. PO SCH ×3 (08:18→18:12)
[2021-02-24] MEDS: CYCLOBENZAPRINE 10 MG TABLET. PO SCH (08:19)
[2021-02-24] MEDS: SERTRALINE 50 MG TABLET. PO SCH (08:19)
[2021-02-24] MEDS: FUROSEMIDE 20 MG TABLET PO SCH (08:19)
[2021-02-24] MEDS: LOSARTAN 25 MG TABLET. PO SCH (08:19)
[2021-02-24] MEDS: APIXABAN 2.5 MG TABLET PO SCH ×2 (08:19→20:27)
[2021-02-24] MEDS: PREGABALIN 75 MG CAPSULE PO SCH ×2 (08:19→20:27)
[2021-02-24] MEDS: CARVEDILOL 12.5 MG TABLET PO SCH ×2 (08:20→18:13)
[2021-02-24] MEDS: AMIODARONE HCL 200 MG TABLET. PO SCH (08:20)
[2021-02-24] MEDS: PANTOPRAZOLE 40 MG TABLET. PO SCH (08:20)
[2021-02-24] MEDS: LUBIPROSTONE 24 MCG CAPSULE PO SCH ×2 (08:21→20:28)
[2021-02-24] MEDS: FLUTICASONE/VILANTEROL 100/25 INHALER. INH SCH (08:21)
[2021-02-24] MEDS: FLUTICASONE 50MCG/NASAL SPRAY 16GM BOTTLE. NS SCH (08:21)
[2021-02-24] MEDS: NYSTATIN TOPICAL POWDER 15GM BOTTLE. TP SCH ×2 (08:41→20:26)
--- NOTE | 2021-02-24 12:13 | TX PLAN ---
Interdisciplinary Tx Plan Admission Information February 02, 2021 at 10:15 Legal Status (on Admission): Voluntary DPOA/Guardian Name: Brittni Pak dtr-in-law Contact Other Contact Name: Kenia Win is the SW at facility plus pt's gdtr Other Contact Phone: [phone] Verified Code Status: DNR Allergies: Coded Allergies: tetanus immune globulin (Verified Allergy, Intermediate, 02/11/21) Penicillins (Verified Allergy, Unknown, 02/02/21) codeine (Verified Allergy, Unknown, 02/02/21) felodipine (Verified Allergy, Unknown, 02/02/21) naproxen (Verified Allergy, Unknown, 02/02/21) Diagnoses Primary Diagnosis: Major neurocognitive disorder, Alzheimer, vascular with delusion, depression, behavioral disturbance, anxiety disorder, unspecified; impulse control disorder, unspecified. Reasons for Admission: Aggressive, Delusions, Agitated, Angry, Combative, Confusion/Disoriented Problem in Patient's Words: Pt not cooperative with psychosocial assessement and doesn't want to talk. She just wants her discharge papers. Per pt spokes person, who is pt's gdtr, Kenia, the above information is accurate as Kenia is the pediatric social worker from pt's living facility. Kenia adds that pt is very delusional and adds from the above delusional beliefs that pt thinks that she is in a relationship with a black man named Napoleon and that Napoleon is her everything. 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 So, it's possible that some of her delusions are actual associations to her past. Additional Admission Comments: Per intake record, pt was refusing medication, resistive to cares, attempts to elope, restless, sundowning, combative toward staff-kicked staff in anne, yelling, thinks house is on fire, delusional-thinks babies on 2nd floor are being taught to have sex. Problems Active Problems: Delusions, agitation, resistive to cares, confusion, anger Inactive Problems: None noted at this time Pt Strengths/Limitations Ability for Bremer: Poor Cognitive Functioning/Ability: Fair Communication Skills/Ability: Poor Financial Resources: Fair Insight/Judgement: Poor Intellectual Ability: Fair Physical Health: Poor Social Skills: Fair Stability in Family: Fair Stability in School/Work: Fair Verbal Skills: Fair Discharge Criteria Discharge Criteria: Adequate arrangements @DC, Verbal commit med comply, Improved behavior, Improved mood/thought Preliminary Discharge Plan Preliminary DC Plan: Current Living Arrange. Special Precautions Special Precautions: Agitation/Assault Fall Risk: Moderate Initial D/C Plan Plan is to return to [facility] once stable. Identified Discharge Needs: Possibly HH with PT/OT and psychiatry follow-up. Currently Utilized Resources Currently Utilized Resources/P: PCP-Dr. Rodriguez Facility-[facility] Dtr-in-law/DPOA-Brittni gdtr/spokesperson/facility -[facility] Referrals Community Resources: Possibly HH with PT/OT and psychiatry follow-up. Identified Problems/Hx/Goals Objectives/Short-Term Goals Short Term Goals: Control abnormal behavior, Dec. Aggression, Dec. Hallucination/Delus, Dec. Outbursts, Improved Social Skills, Medication Stabilization, Monitor Med Effects, Prevent Deterioration, Promote Coping Skill Short Term Goals in Patient's: Control agitation/aggression, decrease delusions, more cooperative with cares, Avoid use of Ativan and Haldol. Interventions/Frequency Staff Interventions/Frequency&: Psychiatry to assess pt three times per week for medication management. Nursing to assess behaviors, monitor medications, and complete 15 minute checks daily. Social Work to see pt at least two times weekly to aid in return to placement. Activities to encourage pt to participate in group activities daily. History Vocational History: Never worked Education: Pt did not complete H.S. She dropped out to get . Community Follow-up Possibly HH with PT/OT and follow up with psychiatry. Community Provider/Family Inpu: Kenia who is the facility is also pt's gdtr. Brittni who is DPOA has given permission for Kenia to be pt's spokesperson. Other needed information can be obtained from Kenia as needed. Family requests that pt be taken off of Ativan as pt appeared to have adverse reactions. Family also asks that Haldol be avoided if possible, but will allow if feels it is needed. Kenia will try to participate in treatment teams. Treatment Plan Explained Patient/Wage Adjuster had this treatment plan explained to him/her as indicated by the signature below and has been given the opportunity to ask questions and make suggestions: Date: Patient/Wage Adjuster Signature: Status Update Update Pt eating 100% of her meals. She is averaging 6 hours of sleep. Pt now taking Seroquel, so pt experiencing some tiredness. Pt has been less resistive to medic ations. She takes meds floated in pudding. Pt being monitored by surfacer d/t atelectasis; this maybe related to how she slouches in her wheelchair. Pt continues to be disorganized and looks around for her youngest son, Nathalia. Pt's mood seems to be improved as she offers more of a smile. She, however, continues to to be non-redirected regarding orientation. Overall pt appears to be better behaviorally. Pt will continue to be monitored and treatment will continue as indicated. Pt will return to [facility] once stable. KYA DUMONT February 24, 2021 12:13
[2021-02-24 15:46] VITALS: BP 120/71
--- NOTE | 2021-02-24 21:56 | PDOC ---
Exam Note: Jose Daniel Note: Please also refer to the separate dictated note~for this date of service dictated separately.~Patient seen individually. Discussed the patient with Nursing staff reviewed the chart.~Reviewed interim history and current functioning. Reviewed vital signs,~Labs/ Radiology~and current medications noted below. Continue current treatment with the changes noted in the dictated addendum note Assessment: Vital Signs/I&O: Vital Signs Date Time Temp Pulse Resp B/P (MAP) Pulse Ox O2 Delivery O2 Flow Rate FiO2 02/24/21 18:13 70 120/71 02/24/21 15:46 97.8 16 98 02/24/21 06:06 Room Air I & O 02/23/21 02/23/21 02/24/21 15:00 23:00 07:00 Intake Total 0 ml 840 ml Balance 0 ml 840 ml Labs: Laboratory Tests Test 02/24/21 07:21 02/24/21 11:55 02/24/21 16:37 02/24/21 19:20 Glucose (Fingerstick) 83 mg/dL (70-99) 113 mg/dL (70-99) H 93 mg/dL (70-99) 83 mg/dL (70-99) Current Medications: Meds: Laboratory Tests Test 02/24/21 07:21 02/24/21 11:55 02/24/21 16:37 02/24/21 19:20 Glucose (Fingerstick) 83 mg/dL 113 mg/dL 93 mg/dL 83 mg/dL Current Medications Medications (Trade) Dose Ordered Sig/Meet Route PRN Reason Start Time Stop Time Status Last Admin Dose Admin Acetaminophen (Tylenol) 650 mg PRN Q6HRS PRN PO MILD PAIN / TEMP > 100.3'F 02/02/21 11:00 02/24/21 03:23 Multi-Ingredient Ointment (Analgesic Mereta) 1 vu PRN QID PRN TP MUSCLE PAIN 02/02/21 11:00 Al Hydroxide/Mg Hydroxide (Mylanta Plus Xs) 15 ml PRN AFTMEALHC PRN PO DYSPEPSIA 02/02/21 11:00 Magnesium Hydroxide (Milk Of Magnesia) 2,400 mg PRN QHS PRN PO 2ND CHOICE CONSTIPATION 02/02/21 11:00 02/12/21 05:24 Acetaminophen (Tylenol) 650 mg PRN Q6HRS PRN PO pain or fever 02/02/21 13:45 UNV Amiodarone HCl (Cordarone) 200 mg DAILY PO 02/03/21 09:00 02/24/21 08:20 Apixaban (Eliquis) 2.5 mg BID PO 02/02/21 21:00 02/24/21 20:27 Carvedilol (Coreg) 12.5 mg BIDWMEALS PO 02/02/21 17:00 02/24/21 18:13 Cyclobenzaprine HCl (Flexeril) 10 mg DAILY PO 02/03/21 09:00 02/24/21 08:19 Fluconazole (Diflucan) 100 mg DAILY PO 02/03/21 09:00 02/07/21 09:30 DC 02/07/21 08:39 Furosemide (Lasix) 40 mg DAILY PO 02/03/21 09:00 02/02/21 16:16 DC Haloperidol (Haldol) 1 mg DAILY PO 02/03/21 09:00 02/03/21 14:19 DC 02/03/21 08:55 Hyoscyamine (Anaspaz) 0.125 mg PRN Q8HRS PRN PO GI SYMPTOMS 02/02/21 13:45 Levothyroxine Sodium (Synthroid) 50 mcg DAILY06 PO 02/03/21 06:00 02/24/21 05:22 Lorazepam (Ativan) 1 mg 1500 PO 02/02/21 15:00 02/03/21 14:19 DC 02/02/21 16:43 Losartan Potassium (Cozaar) 50 mg DAILY PO 02/03/21 09:00 02/02/21 16:16 DC Lubiprostone (Amitiza) 24 mcg BID PO 02/02/21 21:00 02/24/21 20:28 Nystatin (Nystop) 1 vu PRN DAILY PRN TP YEAST UNDER BREAST 02/02/21 13:45 02/08/21 22:44 DC 02/08/21 10:17 Olanzapine (ZyPREXA) 5 mg BID PO 02/02/21 21:00 02/10/21 11:12 DC 02/10/21 08:33 Potassium Chloride (Klor-Con) 10 meq BID PO 02/02/21 21:00 02/24/21 20:27 Pregabalin (Lyrica) 75 mg BID PO 02/02/21 21:00 02/24/21 20:27 Quetiapine Fumarate (SEROquel) 50 mg PRN QHS PRN PO AGITATION 02/02/21 13:45 02/22/21 20:37 Quetiapine Fumarate (SEROquel) 25 mg DAILY PO 02/03/21 09:00 02/10/21 11:12 DC 02/10/21 08:32 Fluticasone/ Vilanterol (Breo Ellipta 100-25 Mcg) 1 puff DAILY INH 02/03/21 09:00 02/24/21 08:21 Non-Formulary Medication (Glucagon (Baqsimi)) 3 mg PRN PRN NS HYPOGLYCEMIA 02/02/21 13:45 UNV Insulin Glargine (Lantus Syringe) 8 unit QHS SQ 02/02/21 21:00 02/17/21 18:26 DC 02/11/21 21:05 Non-Formulary Medication (Insulin Lispro (Humalog)) 100 unit ACHS PRN SQ DIABETES MELLITIS 02/02/21 13:45 02/02/21 18:17 DC Pantoprazole Sodium (Protonix) 40 mg DAILY PO 02/03/21 09:00 02/24/21 08:20 Polyethylene Glycol (miraLAX) 17 gm PRN BID PRN PO 1ST CHOICE CONSTIPATION 02/02/21 14:15 02/13/21 08:00 Furosemide (Lasix) 20 mg DAILY PO 02/03/21 09:00 02/24/21 08:19 Losartan Potassium (Cozaar) 25 mg DAILY PO 02/03/21 09:00 02/24/21 08:19 Non-Formulary Medication (Insulin Lispro (Humalog)) 100 unit TIDACHC SQ 02/02/21 21:00 UNV Olanzapine (ZyPREXA ZYDIS) 2.5 mg PRN Q2HR PRN PO PSYCHOSIS 02/02/21 18:30 02/22/21 15:35 Insulin Human Lispro (HumaLOG) 0-5 UNITS TIDWMEALS SQ 02/03/21 08:00 02/15/21 12:31 Dextrose (Dextrose 50%-Water Syringe) 12.5 gm PRN Q15MIN PRN IV SEE COMMENTS 02/02/21 18:45 Lorazepam (Ativan) 0.5 mg 1500 PO 02/03/21 15:00 02/05/21 23:50 DC 02/05/21 17:54 Nystatin (Nystop) 1 vu BID TP 02/09/21 09:00 02/24/21 20:26 Olanzapine (ZyPREXA) 5 mg DAILY PO 02/11/21 09:00 02/21/21 20:20 DC 02/21/21 08:47 Olanzapine (ZyPREXA) 7.5 mg QHS PO 02/10/21 21:00 02/21/21 20:20 DC 02/19/21 19:32 Fluticasone Propionate (Flonase) 2 spray DAILY NS 02/20/21 09:00 02/24/21 08:21 Quetiapine Fumarate (SEROquel) 12.5 mg TIDAFTMEAL PO 02/22/21 09:00 02/22/21 14:21 DC 02/22/21 13:31 Sertraline HCl (Zoloft) 50 mg DAILY PO 02/22/21 09:00 02/24/21 08:19 Quetiapine Fumarate (SEROquel) 12.5 mg 0900,1300,1700 PO 02/22/21 17:00 02/24/21 18:12 I have reviewed the current psychotropics carefully including drug interactions. Risk benefit ratio favors no change other than as noted in my dictated progress note. Diagnosis: Problems: (1) Impulse control disorder, unspecified (2) Anxiety disorder, unspecified (3) Dementia, vascular, with depression (4) Dementia, vascular, with delusions (5) Dementia in Alzheimer's disease with depression (6) Dementia in Alzheimer's disease with delusions (7) Major neurocognitive disorder (8) Dementia of the Alzheimer's type with early onset with behavioral disturbance JARRETT LEONE MD February 24, 2021 21:55
[2021-02-25] MEDS: LEVOTHYROXINE 50 MCG TABLET PO SCH (06:00)
[2021-02-25 06:05] VITALS: BP 132/78
[2021-02-25] MEDS: INSULIN LISPRO 300 UNITS/3 ML VIAL. SQ SCH ×3 (07:54→17:00)
[2021-02-25] MEDS: APIXABAN 2.5 MG TABLET PO SCH ×3 (08:16→21:00)
[2021-02-25] MEDS: PANTOPRAZOLE 40 MG TABLET. PO SCH (08:16)
[2021-02-25] MEDS: LOSARTAN 25 MG TABLET. PO SCH (08:16)
[2021-02-25] MEDS: CYCLOBENZAPRINE 10 MG TABLET. PO SCH (08:16)
[2021-02-25] MEDS: POTASSIUM CHLORIDE 10 MEQ TABLET.ER. PO SCH ×3 (08:16→21:00)
[2021-02-25] MEDS: PREGABALIN 75 MG CAPSULE PO SCH ×3 (08:16→21:00)
[2021-02-25] MEDS: FUROSEMIDE 20 MG TABLET PO SCH (08:17)
[2021-02-25] MEDS: SERTRALINE 50 MG TABLET. PO SCH (08:17)
[2021-02-25] MEDS: AMIODARONE HCL 200 MG TABLET. PO SCH (08:17)
[2021-02-25] MEDS: QUEtiapine 25 MG TABLET. PO SCH ×3 (08:17→17:00)
[2021-02-25] MEDS: CARVEDILOL 12.5 MG TABLET PO SCH ×2 (08:18→17:00)
[2021-02-25] MEDS: FLUTICASONE/VILANTEROL 100/25 INHALER. INH SCH ×2 (08:18→09:00)
[2021-02-25] MEDS: FLUTICASONE 50MCG/NASAL SPRAY 16GM BOTTLE. NS SCH ×2 (08:18→09:00)
[2021-02-25] MEDS: LUBIPROSTONE 24 MCG CAPSULE PO SCH ×3 (08:18→21:00)
[2021-02-25] MEDS: NYSTATIN TOPICAL POWDER 15GM BOTTLE. TP SCH ×2 (09:00→20:35)
--- NOTE | 2021-02-25 10:11 | PDOC ---
Exam Note: Jose Daniel Note: This note is a late entry for 02/24/2021 covers elements not covered in my initial note. Subjective: The patient was reviewed in the morning of 02/24/2021 for a treatment team meeting with Carla Bhatt, Krys Ramon and Rebecca (social media project manager), Krissy, activity therapy and Reba RN, discussed and reviewed the chart. She slept 9 hours previous night. The patient has been compliant, disorganized, frequently yelling for her son Abraham. Last week per nursing report she was hallucinating but not this week. She has some medical morbidities with atelectasis and this could be partly due to her posture. Review of Systems: Ambulation impaired in wheelchair, head bent forward. No CV, , pulmonary, eye, ENT system symptoms on review. Mental Status Exam: The patient is oriented to herself. Speech moderate laten cy, low in rate and rhythm, low in volume. Abstraction is fair. Computation impaired. Language function intact. Mood and affect withdrawn, less irritable and anxious. Laboratory Data: Reviewed. Impression: Major neurocognitive disorder Alzheimer vascular with delusion, depression, behavioral disturbance. Anxiety disorder unspecified. Impulse control disorder unspecified. Plan: No change from initial note. Assessment: Vital Signs/I&O: Vital Signs Date Time Temp Pulse Resp B/P (MAP) Pulse Ox O2 Delivery O2 Flow Rate FiO2 02/25/21 08:18 62 132/78 02/25/21 06:05 96.6 20 93 02/24/21 06:06 Room Air I & O 02/24/21 02/24/21 02/25/21 15:00 23:00 07:00 Intake Total 560 ml 640 ml Balance 560 ml 640 ml Labs: Laboratory Tests Test 02/24/21 11:55 02/24/21 16:37 02/24/21 19:20 02/25/21 07:48 Glucose (Fingerstick) 113 mg/dL (70-99) H 93 mg/dL (70-99) 83 mg/dL (70-99) 85 mg/dL (70-99) Current Medications: Meds: Laboratory Tests Test 02/24/21 11:55 02/24/21 16:37 02/24/21 19:20 02/25/21 07:48 Glucose (Fingerstick) 113 mg/dL 93 mg/dL 83 mg/dL 85 mg/dL Current Medications Medications (Trade) Dose Ordered Sig/Meet Route PRN Reason Start Time Stop Time Status Last Admin Dose Admin Acetaminophen (Tylenol) 650 mg PRN Q6HRS PRN PO MILD PAIN / TEMP > 100.3'F 02/02/21 11:00 02/24/21 03:23 Multi-Ingredient Ointment (Analgesic Hawthorn) 1 vu PRN QID PRN TP MUSCLE PAIN 02/02/21 11:00 Al Hydroxide/Mg Hydroxide (Mylanta Plus Xs) 15 ml PRN AFTMEALHC PRN PO DYSPEPSIA 02/02/21 11:00 Magnesium Hydroxide (Milk Of Magnesia) 2,400 mg PRN QHS PRN PO 2ND CHOICE CONSTIPATION 02/02/21 11:00 02/12/21 05:24 Acetaminophen (Tylenol) 650 mg PRN Q6HRS PRN PO pain or fever 02/02/21 13:45 UNV Amiodarone HCl (Cordarone) 200 mg DAILY PO 02/03/21 09:00 02/25/21 08:17 Apixaban (Eliquis) 2.5 mg BID PO 02/02/21 21:00 02/25/21 08:16 Carvedilol (Coreg) 12.5 mg BIDWMEALS PO 02/02/21 17:00 02/25/21 08:18 Cyclobenzaprine HCl (Flexeril) 10 mg DAILY PO 02/03/21 09:00 02/25/21 08:16 Fluconazole (Diflucan) 100 mg DAILY PO 02/03/21 09:00 02/07/21 09:30 DC 02/07/21 08:39 Furosemide (Lasix) 40 mg DAILY PO 02/03/21 09:00 02/02/21 16:16 DC Haloperidol (Haldol) 1 mg DAILY PO 02/03/21 09:00 02/03/21 14:19 DC 02/03/21 08:55 Hyoscyamine (Anaspaz) 0.125 mg PRN Q8HRS PRN PO GI SYMPTOMS 02/02/21 13:45 Levothyroxine Sodium (Synthroid) 50 mcg DAILY06 PO 02/03/21 06:00 02/25/21 06:00 Lorazepam (Ativan) 1 mg 1500 PO 02/02/21 15:00 02/03/21 14:19 DC 02/02/21 16:43 Losartan Potassium (Cozaar) 50 mg DAILY PO 02/03/21 09:00 02/02/21 16:16 DC Lubiprostone (Amitiza) 24 mcg BID PO 02/02/21 21:00 02/25/21 08:18 Nystatin (Nystop) 1 vu PRN DAILY PRN TP YEAST UNDER BREAST 02/02/21 13:45 02/08/21 22:44 DC 02/08/21 10:17 Olanzapine (ZyPREXA) 5 mg BID PO 02/02/21 21:00 02/10/21 11:12 DC 02/10/21 08:33 Potassium Chloride (Klor-Con) 10 meq BID PO 02/02/21 21:00 02/25/21 08:16 Pregabalin (Lyrica) 75 mg BID PO 02/02/21 21:00 02/25/21 08:16 Quetiapine Fumarate (SEROquel) 50 mg PRN QHS PRN PO AGITATION 02/02/21 13:45 02/22/21 20:37 Quetiapine Fumarate (SEROquel) 25 mg DAILY PO 02/03/21 09:00 02/10/21 11:12 DC 02/10/21 08:32 Fluticasone/ Vilanterol (Breo Ellipta 100-25 Mcg) 1 puff DAILY INH 02/03/21 09:00 02/25/21 09:00 Non-Formulary Medication (Glucagon (Baqsimi)) 3 mg PRN PRN NS HYPOGLYCEMIA 02/02/21 13:45 UNV Insulin Glargine (Lantus Syringe) 8 unit QHS SQ 02/02/21 21:00 02/17/21 18:26 DC 02/11/21 21:05 Non-Formulary Medication (Insulin Lispro (Humalog)) 100 unit ACHS PRN SQ DIABETES MELLITIS 02/02/21 13:45 02/02/21 18:17 DC Pantoprazole Sodium (Protonix) 40 mg DAILY PO 02/03/21 09:00 02/25/21 08:16 Polyethylene Glycol (miraLAX) 17 gm PRN BID PRN PO 1ST CHOICE CONSTIPATION 02/02/21 14:15 02/13/21 08:00 Furosemide (Lasix) 20 mg DAILY PO 02/03/21 09:00 02/25/21 08:17 Losartan Potassium (Cozaar) 25 mg DAILY PO 02/03/21 09:00 02/25/21 08:16 Non-Formulary Medication (Insulin Lispro (Humalog)) 100 unit TIDACHC SQ 02/02/21 21:00 UNV Olanzapine (ZyPREXA ZYDIS) 2.5 mg PRN Q2HR PRN PO PSYCHOSIS 02/02/21 18:30 02/22/21 15:35 Insulin Human Lispro (HumaLOG) 0-5 UNITS TIDWMEALS SQ 02/03/21 08:00 02/15/21 12:31 Dextrose (Dextrose 50%-Water Syringe) 12.5 gm PRN Q15MIN PRN IV SEE COMMENTS 02/02/21 18:45 Lorazepam (Ativan) 0.5 mg 1500 PO 02/03/21 15:00 02/05/21 23:50 DC 02/05/21 17:54 Nystatin (Nystop) 1 vu BID TP 02/09/21 09:00 02/25/21 09:00 Olanzapine (ZyPREXA) 5 mg DAILY PO 02/11/21 09:00 02/21/21 20:20 DC 02/21/21 08:47 Olanzapine (ZyPREXA) 7.5 mg QHS PO 02/10/21 21:00 02/21/21 20:20 DC 02/19/21 19:32 Fluticasone Propionate (Flonase) 2 spray DAILY NS 02/20/21 09:00 02/25/21 08:18 Quetiapine Fumarate (SEROquel) 12.5 mg TIDAFTMEAL PO 02/22/21 09:00 02/22/21 14:21 DC 02/22/21 13:31 Sertraline HCl (Zoloft) 50 mg DAILY PO 02/22/21 09:00 02/25/21 08:17 Quetiapine Fumarate (SEROquel) 12.5 mg 0900,1300,1700 PO 02/22/21 17:00 02/25/21 08:17 I have reviewed the current psychotropics carefully including drug interactions. Risk benefit ratio favors no change other than as noted in my dictated progress note. Diagnosis: Problems: (1) Impulse control disorder, unspecified (2) Anxiety disorder, unspecified (3) Dementia, vascular, with depression (4) Dementia, vascular, with delusions (5) Dementia in Alzheimer's disease with depression (6) Dementia in Alzheimer's disease with delusions (7) Major neurocognitive disorder (8) Dementia of the Alzheimer's type with early onset with behavioral disturbance JARRETT LEONE MD February 25, 2021 10:11
[2021-02-25 15:48] VITALS: BP 121/64
--- NOTE | 2021-02-25 21:47 | PDOC ---
Exam Note: Jose Daniel Note: Please also refer to the separate dictated note~for this date of service dictated separately.~Patient seen individually. Discussed the patient with Nursing staff reviewed the chart.~Reviewed interim history and current functioning. Reviewed vital signs,~Labs/ Radiology~and current medications noted below. Continue current treatment with the changes noted in the dictated addendum note Assessment: Vital Signs/I&O: Vital Signs Date Time Temp Pulse Resp B/P (MAP) Pulse Ox O2 Delivery O2 Flow Rate FiO2 02/25/21 17:00 62 121/64 02/25/21 15:48 96.4 18 98 Room Air I & O 02/24/21 02/24/21 02/25/21 15:00 23:00 07:00 Intake Total 560 ml 640 ml Balance 560 ml 640 ml Labs: Laboratory Tests Test 02/25/21 07:48 02/25/21 11:32 02/25/21 17:13 02/25/21 19:31 Glucose (Fingerstick) 85 mg/dL (70-99) 91 mg/dL (70-99) 107 mg/dL (70-99) H 107 mg/dL (70-99) H Current Medications: Meds: Laboratory Tests Test 02/25/21 07:48 02/25/21 11:32 02/25/21 17:13 02/25/21 19:31 Glucose (Fingerstick) 85 mg/dL 91 mg/dL 107 mg/dL 107 mg/dL Current Medications Medications (Trade) Dose Ordered Sig/Meet Route PRN Reason Start Time Stop Time Status Last Admin Dose Admin Acetaminophen (Tylenol) 650 mg PRN Q6HRS PRN PO MILD PAIN / TEMP > 100.3'F 02/02/21 11:00 02/24/21 03:23 Multi-Ingredient Ointment (Analgesic [place]) 1 vu PRN QID PRN TP MUSCLE PAIN 02/02/21 11:00 Al Hydroxide/Mg Hydroxide (Mylanta Plus Xs) 15 ml PRN AFTMEALHC PRN PO DYSPEPSIA 02/02/21 11:00 Magnesium Hydroxide (Milk Of Magnesia) 2,400 mg PRN QHS PRN PO 2ND CHOICE CONSTIPATION 02/02/21 11:00 02/12/21 05:24 Acetaminophen (Tylenol) 650 mg PRN Q6HRS PRN PO pain or fever 02/02/21 13:45 UNV Amiodarone HCl (Cordarone) 200 mg DAILY PO 02/03/21 09:00 02/25/21 08:17 Apixaban (Eliquis) 2.5 mg BID PO 02/02/21 21:00 02/25/21 08:16 Carvedilol (Coreg) 12.5 mg BIDWMEALS PO 02/02/21 17:00 02/25/21 17:00 Cyclobenzaprine HCl (Flexeril) 10 mg DAILY PO 02/03/21 09:00 02/25/21 08:16 Fluconazole (Diflucan) 100 mg DAILY PO 02/03/21 09:00 02/07/21 09:30 DC 02/07/21 08:39 Furosemide (Lasix) 40 mg DAILY PO 02/03/21 09:00 02/02/21 16:16 DC Haloperidol (Haldol) 1 mg DAILY PO 02/03/21 09:00 02/03/21 14:19 DC 02/03/21 08:55 Hyoscyamine (Anaspaz) 0.125 mg PRN Q8HRS PRN PO GI SYMPTOMS 02/02/21 13:45 Levothyroxine Sodium (Synthroid) 50 mcg DAILY06 PO 02/03/21 06:00 02/25/21 06:00 Lorazepam (Ativan) 1 mg 1500 PO 02/02/21 15:00 02/03/21 14:19 DC 02/02/21 16:43 Losartan Potassium (Cozaar) 50 mg DAILY PO 02/03/21 09:00 02/02/21 16:16 DC Lubiprostone (Amitiza) 24 mcg BID PO 02/02/21 21:00 02/25/21 08:18 Nystatin (Nystop) 1 vu PRN DAILY PRN TP YEAST UNDER BREAST 02/02/21 13:45 02/08/21 22:44 DC 02/08/21 10:17 Olanzapine (ZyPREXA) 5 mg BID PO 02/02/21 21:00 02/10/21 11:12 DC 02/10/21 08:33 Potassium Chloride (Klor-Con) 10 meq BID PO 02/02/21 21:00 02/25/21 08:16 Pregabalin (Lyrica) 75 mg BID PO 02/02/21 21:00 02/25/21 08:16 Quetiapine Fumarate (SEROquel) 50 mg PRN QHS PRN PO AGITATION 02/02/21 13:45 02/22/21 20:37 Quetiapine Fumarate (SEROquel) 25 mg DAILY PO 02/03/21 09:00 02/10/21 11:12 DC 02/10/21 08:32 Fluticasone/ Vilanterol (Breo Ellipta 100-25 Mcg) 1 puff DAILY INH 02/03/21 09:00 02/24/21 08:21 Non-Formulary Medication (Glucagon (Baqsimi)) 3 mg PRN PRN NS HYPOGLYCEMIA 02/02/21 13:45 UNV Insulin Glargine (Lantus Syringe) 8 unit QHS SQ 02/02/21 21:00 02/17/21 18:26 DC 02/11/21 21:05 Non-Formulary Medication (Insulin Lispro (Humalog)) 100 unit ACHS PRN SQ DIABETES MELLITIS 02/02/21 13:45 02/02/21 18:17 DC Pantoprazole Sodium (Protonix) 40 mg DAILY PO 02/03/21 09:00 02/25/21 08:16 Polyethylene Glycol (miraLAX) 17 gm PRN BID PRN PO 1ST CHOICE CONSTIPATION 02/02/21 14:15 02/13/21 08:00 Furosemide (Lasix) 20 mg DAILY PO 02/03/21 09:00 02/25/21 08:17 Losartan Potassium (Cozaar) 25 mg DAILY PO 02/03/21 09:00 02/25/21 08:16 Non-Formulary Medication (Insulin Lispro (Humalog)) 100 unit TIDACHC SQ 02/02/21 21:00 UNV Olanzapine (ZyPREXA ZYDIS) 2.5 mg PRN Q2HR PRN PO PSYCHOSIS 02/02/21 18:30 02/22/21 15:35 Insulin Human Lispro (HumaLOG) 0-5 UNITS TIDWMEALS SQ 02/03/21 08:00 02/15/21 12:31 Dextrose (Dextrose 50%-Water Syringe) 12.5 gm PRN Q15MIN PRN IV SEE COMMENTS 02/02/21 18:45 Lorazepam (Ativan) 0.5 mg 1500 PO 02/03/21 15:00 02/05/21 23:50 DC 02/05/21 17:54 Nystatin (Nystop) 1 vu BID TP 02/09/21 09:00 02/25/21 20:35 Olanzapine (ZyPREXA) 5 mg DAILY PO 02/11/21 09:00 02/21/21 20:20 DC 02/21/21 08:47 Olanzapine (ZyPREXA) 7.5 mg QHS PO 02/10/21 21:00 02/21/21 20:20 DC 02/19/21 19:32 Fluticasone Propionate (Flonase) 2 spray DAILY NS 02/20/21 09:00 02/24/21 08:21 Quetiapine Fumarate (SEROquel) 12.5 mg TIDAFTMEAL PO 02/22/21 09:00 02/22/21 14:21 DC 02/22/21 13:31 Sertraline HCl (Zoloft) 50 mg DAILY PO 02/22/21 09:00 02/25/21 08:17 Quetiapine Fumarate (SEROquel) 12.5 mg 0900,1300,1700 PO 02/22/21 17:00 02/25/21 17:00 I have reviewed the current psychotropics carefully including drug interactions. Risk benefit ratio favors no change other than as noted in my dictated progress note. Diagnosis: Problems: (1) Impulse control disorder, unspecified (2) Anxiety disorder, unspecified (3) Dementia, vascular, with depression (4) Dementia, vascular, with delusions (5) Dementia in Alzheimer's disease with depression (6) Dementia in Alzheimer's disease with delusions (7) Major neurocognitive disorder (8) Dementia of the Alzheimer's type with early onset with behavioral disturbance JARRETT LEONE MD February 25, 2021 21:46
[2021-02-26 05:58] VITALS: BP 134/72
[2021-02-26] MEDS: LEVOTHYROXINE 50 MCG TABLET PO SCH (06:00)
[2021-02-26] MEDS: FUROSEMIDE 20 MG TABLET PO SCH (08:51)
[2021-02-26] MEDS: CYCLOBENZAPRINE 10 MG TABLET. PO SCH (08:51)
[2021-02-26] MEDS: PANTOPRAZOLE 40 MG TABLET. PO SCH (08:52)
[2021-02-26] MEDS: AMIODARONE HCL 200 MG TABLET. PO SCH (08:52)
[2021-02-26] MEDS: CARVEDILOL 12.5 MG TABLET PO SCH ×2 (08:52→17:26)
[2021-02-26] MEDS: APIXABAN 2.5 MG TABLET PO SCH ×3 (08:52→21:28)
[2021-02-26] MEDS: QUEtiapine 25 MG TABLET. PO SCH ×3 (08:53→17:26)
[2021-02-26] MEDS: POTASSIUM CHLORIDE 10 MEQ TABLET.ER. PO SCH ×3 (08:53→21:27)
[2021-02-26] MEDS: LOSARTAN 25 MG TABLET. PO SCH (08:53)
[2021-02-26] MEDS: INSULIN LISPRO 300 UNITS/3 ML VIAL. SQ SCH ×3 (08:53→17:04)
[2021-02-26] MEDS: SERTRALINE 50 MG TABLET. PO SCH (08:53)
[2021-02-26] MEDS: NYSTATIN TOPICAL POWDER 15GM BOTTLE. TP SCH ×3 (09:22→21:28)
[2021-02-26] MEDS: FLUTICASONE/VILANTEROL 100/25 INHALER. INH SCH (09:22)
[2021-02-26] MEDS: PREGABALIN 75 MG CAPSULE PO SCH ×3 (09:22→21:27)
[2021-02-26] MEDS: LUBIPROSTONE 24 MCG CAPSULE PO SCH ×3 (09:22→21:56)
[2021-02-26] MEDS: FLUTICASONE 50MCG/NASAL SPRAY 16GM BOTTLE. NS SCH (10:31)
[2021-02-26 15:44] VITALS: BP 151/85
[2021-02-26] MEDS: QUEtiapine 50 MG TABLET. PO PRN (22:01)
--- NOTE | 2021-02-26 22:11 | PDOC ---
Exam Note: Jose Daniel Note: Please also refer to the separate dictated note~for this date of service dictated separately.~Patient seen individually. Discussed the patient with Nursing staff reviewed the chart.~Reviewed interim history and current functioning. Reviewed vital signs,~Labs/ Radiology~and current medications noted below. Continue current treatment with the changes noted in the dictated addendum note Assessment: Vital Signs/I&O: Vital Signs Date Time Temp Pulse Resp B/P (MAP) Pulse Ox O2 Delivery O2 Flow Rate FiO2 02/26/21 17:26 63 151/85 02/26/21 15:44 97.8 16 96 02/26/21 05:58 Room Air I & O 02/25/21 02/25/21 02/26/21 15:00 23:00 07:00 Intake Total 480 ml 120 ml Balance 480 ml 120 ml Labs: Laboratory Tests Test 02/26/21 07:56 02/26/21 12:07 02/26/21 16:59 02/26/21 19:15 Glucose (Fingerstick) 83 mg/dL (70-99) 104 mg/dL (70-99) H 178 mg/dL (70-99) H 123 mg/dL (70-99) H Current Medications: Meds: Laboratory Tests Test 02/26/21 07:56 02/26/21 12:07 02/26/21 16:59 02/26/21 19:15 Glucose (Fingerstick) 83 mg/dL 104 mg/dL 178 mg/dL 123 mg/dL Current Medications Medications (Trade) Dose Ordered Sig/Meet Route PRN Reason Start Time Stop Time Status Last Admin Dose Admin Acetaminophen (Tylenol) 650 mg PRN Q6HRS PRN PO MILD PAIN / TEMP > 100.3'F 02/02/21 11:00 02/24/21 03:23 Multi-Ingredient Ointment (Analgesic [place]) 1 vu PRN QID PRN TP MUSCLE PAIN 02/02/21 11:00 Al Hydroxide/Mg Hydroxide (Mylanta Plus Xs) 15 ml PRN AFTMEALHC PRN PO DYSPEPSIA 02/02/21 11:00 Magnesium Hydroxide (Milk Of Magnesia) 2,400 mg PRN QHS PRN PO 2ND CHOICE CONSTIPATION 02/02/21 11:00 02/12/21 05:24 Acetaminophen (Tylenol) 650 mg PRN Q6HRS PRN PO pain or fever 02/02/21 13:45 UNV Amiodarone HCl (Cordarone) 200 mg DAILY PO 02/03/21 09:00 02/26/21 08:52 Apixaban (Eliquis) 2.5 mg BID PO 02/02/21 21:00 02/26/21 08:52 Carvedilol (Coreg) 12.5 mg BIDWMEALS PO 02/02/21 17:00 02/26/21 08:52 Cyclobenzaprine HCl (Flexeril) 10 mg DAILY PO 02/03/21 09:00 02/26/21 08:51 Fluconazole (Diflucan) 100 mg DAILY PO 02/03/21 09:00 02/07/21 09:30 DC 02/07/21 08:39 Furosemide (Lasix) 40 mg DAILY PO 02/03/21 09:00 02/02/21 16:16 DC Haloperidol (Haldol) 1 mg DAILY PO 02/03/21 09:00 02/03/21 14:19 DC 02/03/21 08:55 Hyoscyamine (Anaspaz) 0.125 mg PRN Q8HRS PRN PO GI SYMPTOMS 02/02/21 13:45 Levothyroxine Sodium (Synthroid) 50 mcg DAILY06 PO 02/03/21 06:00 02/26/21 06:00 Lorazepam (Ativan) 1 mg 1500 PO 02/02/21 15:00 02/03/21 14:19 DC 02/02/21 16:43 Losartan Potassium (Cozaar) 50 mg DAILY PO 02/03/21 09:00 02/02/21 16:16 DC Lubiprostone (Amitiza) 24 mcg BID PO 02/02/21 21:00 02/26/21 21:00 Nystatin (Nystop) 1 vu PRN DAILY PRN TP YEAST UNDER BREAST 02/02/21 13:45 02/08/21 22:44 DC 02/08/21 10:17 Olanzapine (ZyPREXA) 5 mg BID PO 02/02/21 21:00 02/10/21 11:12 DC 02/10/21 08:33 Potassium Chloride (Klor-Con) 10 meq BID PO 02/02/21 21:00 02/26/21 08:53 Pregabalin (Lyrica) 75 mg BID PO 02/02/21 21:00 02/26/21 09:22 Quetiapine Fumarate (SEROquel) 50 mg PRN QHS PRN PO AGITATION 02/02/21 13:45 02/26/21 22:01 Quetiapine Fumarate (SEROquel) 25 mg DAILY PO 02/03/21 09:00 02/10/21 11:12 DC 02/10/21 08:32 Fluticasone/ Vilanterol (Breo Ellipta 100-25 Mcg) 1 puff DAILY INH 02/03/21 09:00 02/26/21 09:22 Non-Formulary Medication (Glucagon (Baqsimi)) 3 mg PRN PRN NS HYPOGLYCEMIA 02/02/21 13:45 UNV Insulin Glargine (Lantus Syringe) 8 unit QHS SQ 02/02/21 21:00 02/17/21 18:26 DC 02/11/21 21:05 Non-Formulary Medication (Insulin Lispro (Humalog)) 100 unit ACHS PRN SQ DIABETES MELLITIS 02/02/21 13:45 02/02/21 18:17 DC Pantoprazole Sodium (Protonix) 40 mg DAILY PO 02/03/21 09:00 02/26/21 08:52 Polyethylene Glycol (miraLAX) 17 gm PRN BID PRN PO 1ST CHOICE CONSTIPATION 02/02/21 14:15 02/13/21 08:00 Furosemide (Lasix) 20 mg DAILY PO 02/03/21 09:00 02/26/21 08:51 Losartan Potassium (Cozaar) 25 mg DAILY PO 02/03/21 09:00 02/26/21 08:53 Non-Formulary Medication (Insulin Lispro (Humalog)) 100 unit TIDACHC SQ 02/02/21 21:00 UNV Olanzapine (ZyPREXA ZYDIS) 2.5 mg PRN Q2HR PRN PO PSYCHOSIS 02/02/21 18:30 02/26/21 22:01 Insulin Human Lispro (HumaLOG) 0-5 UNITS TIDWMEALS SQ 02/03/21 08:00 02/15/21 12:31 Dextrose (Dextrose 50%-Water Syringe) 12.5 gm PRN Q15MIN PRN IV SEE COMMENTS 02/02/21 18:45 Lorazepam (Ativan) 0.5 mg 1500 PO 02/03/21 15:00 02/05/21 23:50 DC 02/05/21 17:54 Nystatin (Nystop) 1 vu BID TP 02/09/21 09:00 02/25/21 20:35 Olanzapine (ZyPREXA) 5 mg DAILY PO 02/11/21 09:00 02/21/21 20:20 DC 02/21/21 08:47 Olanzapine (ZyPREXA) 7.5 mg QHS PO 02/10/21 21:00 02/21/21 20:20 DC 02/19/21 19:32 Fluticasone Propionate (Flonase) 2 spray DAILY NS 02/20/21 09:00 02/26/21 10:31 Quetiapine Fumarate (SEROquel) 12.5 mg TIDAFTMEAL PO 02/22/21 09:00 02/22/21 14:21 DC 02/22/21 13:31 Sertraline HCl (Zoloft) 50 mg DAILY PO 02/22/21 09:00 02/26/21 18:18 DC 02/26/21 08:53 Quetiapine Fumarate (SEROquel) 12.5 mg 0900,1300,1700 PO 02/22/21 17:00 02/26/21 08:53 Sertraline HCl (Zoloft) 75 mg DAILY PO 02/27/21 09:00 I have reviewed the current psychotropics carefully including drug interactions. Risk benefit ratio favors no change other than as noted in my dictated progress note. 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
[2021-02-27] MEDS: LEVOTHYROXINE 50 MCG TABLET PO SCH (04:33)
[2021-02-27] MEDS: ACETAMINOPHEN 325 MG TABLET PO PRN ×2 (04:33→20:44)
[2021-02-27 05:28] VITALS: BP 102/55
[2021-02-27] MEDS: INSULIN LISPRO 300 UNITS/3 ML VIAL. SQ SCH ×3 (07:46→17:00)
[2021-02-27] MEDS: FUROSEMIDE 20 MG TABLET PO SCH (08:48)
[2021-02-27] MEDS: PREGABALIN 75 MG CAPSULE PO SCH ×2 (08:48→20:44)
[2021-02-27] MEDS: AMIODARONE HCL 200 MG TABLET. PO SCH (08:48)
[2021-02-27] MEDS: CYCLOBENZAPRINE 10 MG TABLET. PO SCH (08:48)
[2021-02-27] MEDS: LOSARTAN 25 MG TABLET. PO SCH (08:49)
[2021-02-27] MEDS: POTASSIUM CHLORIDE 10 MEQ TABLET.ER. PO SCH ×2 (08:49→20:42)
[2021-02-27] MEDS: SERTRALINE 25 MG TABLET. PO SCH (08:49)
[2021-02-27] MEDS: PANTOPRAZOLE 40 MG TABLET. PO SCH (08:49)
[2021-02-27] MEDS: LUBIPROSTONE 24 MCG CAPSULE PO SCH ×2 (08:50→20:44)
[2021-02-27] MEDS: FLUTICASONE 50MCG/NASAL SPRAY 16GM BOTTLE. NS SCH (08:50)
[2021-02-27] MEDS: APIXABAN 2.5 MG TABLET PO SCH ×2 (08:50→20:42)
[2021-02-27] MEDS: NYSTATIN TOPICAL POWDER 15GM BOTTLE. TP SCH ×2 (08:50→20:44)
[2021-02-27] MEDS: CARVEDILOL 12.5 MG TABLET PO SCH ×2 (08:50→16:15)
[2021-02-27] MEDS: QUEtiapine 25 MG TABLET. PO SCH ×3 (08:50→16:15)
[2021-02-27] MEDS: FLUTICASONE/VILANTEROL 100/25 INHALER. INH SCH (08:51)
--- NOTE | 2021-02-27 08:51 | PDOC ---
Exam Note: Jose Daniel Note: This note is a late entry for 02/25/2021 covers elements not covered in my initial note. Subjective: The patient was seen individually in the evening of 02/25/2021 with Reba SANTOS, discussed and reviewed the chart. She slept 5-1/4 hours previous night. Previous night, the patient put herself on the floor, quite disorganized, delusional, wanting to call her son, calling out for son Abraham at times, resistive with medications. They had to be syringed during the day, worse in the evening. Review of Systems: Ambulation impaired in wheelchair. She is bent forward. No CV, , pulmonary, eye, ENT system symptoms on review. Mental Status Exam: The patient is oriented to herself. Speech low in rate and rhythm, low in volume. Insight and judgment, recent and remote memory, attention and concentration, fund of knowledge is poor consistent with her diagnoses. Laboratory Data: Reviewed. Impression: Major neurocognitive disorder Alzheimer vascular with delusion, depression, behavioral disturbance. Anxiety disorder unspecified. Impulse control disorder unspecified. Plan: No change from initial note. Assessment: Vital Signs/I&O: Vital Signs Date Time Temp Pulse Resp B/P (MAP) Pulse Ox O2 Delivery O2 Flow Rate FiO2 02/27/21 05:28 97.0 62 20 102/55 (71) 92 02/26/21 05:58 Room Air I & O 02/26/21 02/26/21 02/27/21 14:59 22:59 06:59 Intake Total 710 ml 0 ml Balance 710 ml 0 ml Labs: Laboratory Tests Test 02/26/21 12:07 02/26/21 16:59 02/26/21 19:15 02/27/21 07:41 Glucose (Fingerstick) 104 mg/dL (70-99) H 178 mg/dL (70-99) H 123 mg/dL (70-99) H 84 mg/dL (70-99) Current Medications: Meds: Laboratory Tests Test 02/26/21 12:07 02/26/21 16:59 02/26/21 19:15 02/27/21 07:41 Glucose (Fingerstick) 104 mg/dL 178 mg/dL 123 mg/dL 84 mg/dL Current Medications Medications (Trade) Dose Ordered Sig/Meet Route PRN Reason Start Time Stop Time Status Last Admin Dose Admin Acetaminophen (Tylenol) 650 mg PRN Q6HRS PRN PO MILD PAIN / TEMP > 100.3'F 02/02/21 11:00 02/27/21 04:33 Multi-Ingredient Ointment (Analgesic [place]) 1 vu PRN QID PRN TP MUSCLE PAIN 02/02/21 11:00 Al Hydroxide/Mg Hydroxide (Mylanta Plus Xs) 15 ml PRN AFTMEALHC PRN PO DYSPEPSIA 02/02/21 11:00 Magnesium Hydroxide (Milk Of Magnesia) 2,400 mg PRN QHS PRN PO 2ND CHOICE CONSTIPATION 02/02/21 11:00 02/12/21 05:24 Acetaminophen (Tylenol) 650 mg PRN Q6HRS PRN PO pain or fever 02/02/21 13:45 UNV Amiodarone HCl (Cordarone) 200 mg DAILY PO 02/03/21 09:00 02/26/21 08:52 Apixaban (Eliquis) 2.5 mg BID PO 02/02/21 21:00 02/26/21 08:52 Carvedilol (Coreg) 12.5 mg BIDWMEALS PO 02/02/21 17:00 02/26/21 08:52 Cyclobenzaprine HCl (Flexeril) 10 mg DAILY PO 02/03/21 09:00 02/26/21 08:51 Fluconazole (Diflucan) 100 mg DAILY PO 02/03/21 09:00 02/07/21 09:30 DC 02/07/21 08:39 Furosemide (Lasix) 40 mg DAILY PO 02/03/21 09:00 02/02/21 16:16 DC Haloperidol (Haldol) 1 mg DAILY PO 02/03/21 09:00 02/03/21 14:19 DC 02/03/21 08:55 Hyoscyamine (Anaspaz) 0.125 mg PRN Q8HRS PRN PO GI SYMPTOMS 02/02/21 13:45 Levothyroxine Sodium (Synthroid) 50 mcg DAILY06 PO 02/03/21 06:00 02/27/21 04:33 Lorazepam (Ativan) 1 mg 1500 PO 02/02/21 15:00 02/03/21 14:19 DC 02/02/21 16:43 Losartan Potassium (Cozaar) 50 mg DAILY PO 02/03/21 09:00 02/02/21 16:16 DC Lubiprostone (Amitiza) 24 mcg BID PO 02/02/21 21:00 02/26/21 21:00 Nystatin (Nystop) 1 vu PRN DAILY PRN TP YEAST UNDER BREAST 02/02/21 13:45 02/08/21 22:44 DC 02/08/21 10:17 Olanzapine (ZyPREXA) 5 mg BID PO 02/02/21 21:00 02/10/21 11:12 DC 02/10/21 08:33 Potassium Chloride (Klor-Con) 10 meq BID PO 02/02/21 21:00 02/26/21 08:53 Pregabalin (Lyrica) 75 mg BID PO 02/02/21 21:00 02/26/21 09:22 Quetiapine Fumarate (SEROquel) 50 mg PRN QHS PRN PO AGITATION 02/02/21 13:45 02/26/21 22:01 Quetiapine Fumarate (SEROquel) 25 mg DAILY PO 02/03/21 09:00 02/10/21 11:12 DC 02/10/21 08:32 Fluticasone/ Vilanterol (Breo Ellipta 100-25 Mcg) 1 puff DAILY INH 02/03/21 09:00 02/26/21 09:22 Non-Formulary Medication (Glucagon (Baqsimi)) 3 mg PRN PRN NS HYPOGLYCEMIA 02/02/21 13:45 UNV Insulin Glargine (Lantus Syringe) 8 unit QHS SQ 02/02/21 21:00 02/17/21 18:26 DC 02/11/21 21:05 Non-Formulary Medication (Insulin Lispro (Humalog)) 100 unit ACHS PRN SQ DIABETES MELLITIS 02/02/21 13:45 02/02/21 18:17 DC Pantoprazole Sodium (Protonix) 40 mg DAILY PO 02/03/21 09:00 02/26/21 08:52 Polyethylene Glycol (miraLAX) 17 gm PRN BID PRN PO 1ST CHOICE CONSTIPATION 02/02/21 14:15 02/13/21 08:00 Furosemide (Lasix) 20 mg DAILY PO 02/03/21 09:00 02/26/21 08:51 Losartan Potassium (Cozaar) 25 mg DAILY PO 02/03/21 09:00 02/26/21 08:53 Non-Formulary Medication (Insulin Lispro (Humalog)) 100 unit TIDACHC SQ 02/02/21 21:00 UNV Olanzapine (ZyPREXA ZYDIS) 2.5 mg PRN Q2HR PRN PO PSYCHOSIS 02/02/21 18:30 02/26/21 22:01 Insulin Human Lispro (HumaLOG) 0-5 UNITS TIDWMEALS SQ 02/03/21 08:00 02/15/21 12:31 Dextrose (Dextrose 50%-Water Syringe) 12.5 gm PRN Q15MIN PRN IV SEE COMMENTS 02/02/21 18:45 Lorazepam (Ativan) 0.5 mg 1500 PO 02/03/21 15:00 02/05/21 23:50 DC 02/05/21 17:54 Nystatin (Nystop) 1 vu BID TP 02/09/21 09:00 02/25/21 20:35 Olanzapine (ZyPREXA) 5 mg DAILY PO 02/11/21 09:00 02/21/21 20:20 DC 02/21/21 08:47 Olanzapine (ZyPREXA) 7.5 mg QHS PO 02/10/21 21:00 02/21/21 20:20 DC 02/19/21 19:32 Fluticasone Propionate (Flonase) 2 spray DAILY NS 02/20/21 09:00 02/26/21 10:31 Quetiapine Fumarate (SEROquel) 12.5 mg TIDAFTMEAL PO 02/22/21 09:00 02/22/21 14:21 DC 02/22/21 13:31 Sertraline HCl (Zoloft) 50 mg DAILY PO 02/22/21 09:00 02/26/21 18:18 DC 02/26/21 08:53 Quetiapine Fumarate (SEROquel) 12.5 mg 0900,1300,1700 PO 02/22/21 17:00 02/26/21 08:53 Sertraline HCl (Zoloft) 75 mg DAILY PO 02/27/21 09:00 I have reviewed the current psychotropics carefully including drug interactions. Risk benefit ratio favors no change other than as noted in my dictated progress note. Diagnosis: Problems: (1) Impulse control disorder, unspecified (2) Anxiety disorder, unspecified (3) Dementia, vascular, with depression (4) Dementia, vascular, with delusions (5) Dementia in Alzheimer's disease with depression (6) Dementia in Alzheimer's disease with delusions (7) Major neurocognitive disorder (8) Dementia of the Alzheimer's type with early onset with behavioral disturbance JARRETT LEONE MD February 27, 2021 08:51
--- NOTE | 2021-02-27 09:12 | PDOC ---
Exam Note: Jose Daniel Note: This note is a late entry for 02/26/2021 covers elements not covered in my initial note. Subjective: The patient was seen individually in the evening of 02/26/2021 with Soledad SANTOS, discussed and reviewed the chart. She slept 5 hours previous night. She did better in the morning, extreme sundowning in the evening, refused medications, yelling for Nathalia. Review of Systems: Ambulation impaired in wheelchair, head bent forward. No CV, , pulmonary, eye, ENT system symptoms on review. Mental Status Exam: The patient is oriented to herself. Speech moderate l atency, low in rate and rhythm, low in volume. Abstraction is fair. Computation impaired. Language function intact. Mood and affect withdrawn. Laboratory Data: Reviewed. Impression: Major neurocognitive disorder Alzheimer vascular with delusion, de pression, behavioral disturbance. Anxiety disorder unspecified. Impulse control disorder unspecified. Plan: Increase Zoloft from 50 mg a day to 75 mg a day. Continue rest of the psychotropics unchanged. Assessment: Vital Signs/I&O: Vital Signs Date Time Temp Pulse Resp B/P (MAP) Pulse Ox O2 Delivery O2 Flow Rate FiO2 02/27/21 08:50 62 102/55 02/27/21 05:28 97.0 20 92 02/26/21 05:58 Room Air I & O 02/26/21 02/26/21 02/27/21 15:00 23:00 07:00 Intake Total 710 ml 0 ml Balance 710 ml 0 ml Labs: Laboratory Tests Test 02/26/21 12:07 02/26/21 16:59 02/26/21 19:15 02/27/21 07:41 Glucose (Fingerstick) 104 mg/dL (70-99) H 178 mg/dL (70-99) H 123 mg/dL (70-99) H 84 mg/dL (70-99) Current Medications: Meds: Laboratory Tests Test 02/26/21 12:07 02/26/21 16:59 02/26/21 19:15 02/27/21 07:41 Glucose (Fingerstick) 104 mg/dL 178 mg/dL 123 mg/dL 84 mg/dL Current Medications Medications (Trade) Dose Ordered Sig/Meet Route PRN Reason Start Time Stop Time Status Last Admin Dose Admin Acetaminophen (Tylenol) 650 mg PRN Q6HRS PRN PO MILD PAIN / TEMP > 100.3'F 02/02/21 11:00 02/27/21 04:33 Multi-Ingredient Ointment (Analgesic [place]) 1 vu PRN QID PRN TP MUSCLE PAIN 02/02/21 11:00 Al Hydroxide/Mg Hydroxide (Mylanta Plus Xs) 15 ml PRN AFTMEALHC PRN PO DYSPEPSIA 02/02/21 11:00 Magnesium Hydroxide (Milk Of Magnesia) 2,400 mg PRN QHS PRN PO 2ND CHOICE CONSTIPATION 02/02/21 11:00 02/12/21 05:24 Acetaminophen (Tylenol) 650 mg PRN Q6HRS PRN PO pain or fever 02/02/21 13:45 UNV Amiodarone HCl (Cordarone) 200 mg DAILY PO 02/03/21 09:00 02/27/21 08:48 Apixaban (Eliquis) 2.5 mg BID PO 02/02/21 21:00 02/27/21 08:50 Carvedilol (Coreg) 12.5 mg BIDWMEALS PO 02/02/21 17:00 02/27/21 08:50 Cyclobenzaprine HCl (Flexeril) 10 mg DAILY PO 02/03/21 09:00 02/27/21 08:48 Fluconazole (Diflucan) 100 mg DAILY PO 02/03/21 09:00 02/07/21 09:30 DC 02/07/21 08:39 Furosemide (Lasix) 40 mg DAILY PO 02/03/21 09:00 02/02/21 16:16 DC Haloperidol (Haldol) 1 mg DAILY PO 02/03/21 09:00 02/03/21 14:19 DC 02/03/21 08:55 Hyoscyamine (Anaspaz) 0.125 mg PRN Q8HRS PRN PO GI SYMPTOMS 02/02/21 13:45 Levothyroxine Sodium (Synthroid) 50 mcg DAILY06 PO 02/03/21 06:00 02/27/21 04:33 Lorazepam (Ativan) 1 mg 1500 PO 02/02/21 15:00 02/03/21 14:19 DC 02/02/21 16:43 Losartan Potassium (Cozaar) 50 mg DAILY PO 02/03/21 09:00 02/02/21 16:16 DC Lubiprostone (Amitiza) 24 mcg BID PO 02/02/21 21:00 02/27/21 08:50 Nystatin (Nystop) 1 vu PRN DAILY PRN TP YEAST UNDER BREAST 02/02/21 13:45 02/08/21 22:44 DC 02/08/21 10:17 Olanzapine (ZyPREXA) 5 mg BID PO 02/02/21 21:00 02/10/21 11:12 DC 02/10/21 08:33 Potassium Chloride (Klor-Con) 10 meq BID PO 02/02/21 21:00 02/27/21 08:49 Pregabalin (Lyrica) 75 mg BID PO 02/02/21 21:00 02/27/21 08:48 Quetiapine Fumarate (SEROquel) 50 mg PRN QHS PRN PO AGITATION 02/02/21 13:45 02/26/21 22:01 Quetiapine Fumarate (SEROquel) 25 mg DAILY PO 02/03/21 09:00 02/10/21 11:12 DC 02/10/21 08:32 Fluticasone/ Vilanterol (Breo Ellipta 100-25 Mcg) 1 puff DAILY INH 02/03/21 09:00 02/27/21 08:51 Non-Formulary Medication (Glucagon (Baqsimi)) 3 mg PRN PRN NS HYPOGLYCEMIA 02/02/21 13:45 UNV Insulin Glargine (Lantus Syringe) 8 unit QHS SQ 02/02/21 21:00 02/17/21 18:26 DC 02/11/21 21:05 Non-Formulary Medication (Insulin Lispro (Humalog)) 100 unit ACHS PRN SQ DIABETES MELLITIS 02/02/21 13:45 02/02/21 18:17 DC Pantoprazole Sodium (Protonix) 40 mg DAILY PO 02/03/21 09:00 02/27/21 08:49 Polyethylene Glycol (miraLAX) 17 gm PRN BID PRN PO 1ST CHOICE CONSTIPATION 02/02/21 14:15 02/13/21 08:00 Furosemide (Lasix) 20 mg DAILY PO 02/03/21 09:00 02/27/21 08:48 Losartan Potassium (Cozaar) 25 mg DAILY PO 02/03/21 09:00 02/27/21 08:49 Non-Formulary Medication (Insulin Lispro (Humalog)) 100 unit TIDACHC SQ 02/02/21 21:00 UNV Olanzapine (ZyPREXA ZYDIS) 2.5 mg PRN Q2HR PRN PO PSYCHOSIS 02/02/21 18:30 02/26/21 22:01 Insulin Human Lispro (HumaLOG) 0-5 UNITS TIDWMEALS SQ 02/03/21 08:00 02/15/21 12:31 Dextrose (Dextrose 50%-Water Syringe) 12.5 gm PRN Q15MIN PRN IV SEE COMMENTS 02/02/21 18:45 Lorazepam (Ativan) 0.5 mg 1500 PO 02/03/21 15:00 02/05/21 23:50 DC 02/05/21 17:54 Nystatin (Nystop) 1 vu BID TP 02/09/21 09:00 02/27/21 08:50 Olanzapine (ZyPREXA) 5 mg DAILY PO 02/11/21 09:00 02/21/21 20:20 DC 02/21/21 08:47 Olanzapine (ZyPREXA) 7.5 mg QHS PO 02/10/21 21:00 02/21/21 20:20 DC 02/19/21 19:32 Fluticasone Propionate (Flonase) 2 spray DAILY NS 02/20/21 09:00 02/27/21 08:50 Quetiapine Fumarate (SEROquel) 12.5 mg TIDAFTMEAL PO 02/22/21 09:00 02/22/21 14:21 DC 02/22/21 13:31 Sertraline HCl (Zoloft) 50 mg DAILY PO 02/22/21 09:00 02/26/21 18:18 DC 02/26/21 08:53 Quetiapine Fumarate (SEROquel) 12.5 mg 0900,1300,1700 PO 02/22/21 17:00 02/27/21 08:50 Sertraline HCl (Zoloft) 75 mg DAILY PO 02/27/21 09:00 02/27/21 08:49 Current Medications Medications (Trade) Dose Ordered Sig/Meet Route PRN Reason Start Time Stop Time Status Last Admin Dose Admin Sertraline HCl (Zoloft) 75 mg DAILY PO 02/27/21 09:00 02/27/21 08:49 I have reviewed the current psychotropics carefully including drug interactions. Risk benefit ratio favors no change other than as noted in my dictated progress note. 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
[2021-02-27 15:38] VITALS: BP 112/70
--- NOTE | 2021-02-27 22:05 | PDOC ---
Exam Note: Jose Daniel Note: Please also refer to the separate dictated note~for this date of service dictated separately.~Patient seen individually. Discussed the patient with Nursing staff reviewed the chart.~Reviewed interim history and current functioning. Reviewed vital signs,~Labs/ Radiology~and current medications noted below. Continue current treatment with the changes noted in the dictated addendum note Assessment: Vital Signs/I&O: Vital Signs Date Time Temp Pulse Resp B/P (MAP) Pulse Ox O2 Delivery O2 Flow Rate FiO2 02/27/21 16:15 68 112/70 02/27/21 15:38 97.6 16 95 02/26/21 05:58 Room Air I & O 02/26/21 02/26/21 02/27/21 15:00 23:00 07:00 Intake Total 710 ml 0 ml Balance 710 ml 0 ml Labs: Laboratory Tests Test 02/27/21 05:30 02/27/21 07:41 02/27/21 11:11 02/27/21 16:05 SARS-CoV-2 (PCR) Negative (NEGATIVE) Glucose (Fingerstick) 84 mg/dL (70-99) 161 mg/dL (70-99) H 155 mg/dL (70-99) H Test 02/27/21 19:19 Glucose (Fingerstick) 100 mg/dL (70-99) H Current Medications: Meds: Laboratory Tests Test 02/27/21 05:30 02/27/21 07:41 02/27/21 11:11 02/27/21 16:05 Coronavirus (COVID-19)(PCR) Negative Glucose (Fingerstick) 84 mg/dL 161 mg/dL 155 mg/dL Test 02/27/21 19:19 Glucose (Fingerstick) 100 mg/dL Current Medications Medications (Trade) Dose Ordered Sig/Meet Route PRN Reason Start Time Stop Time Status Last Admin Dose Admin Acetaminophen (Tylenol) 650 mg PRN Q6HRS PRN PO MILD PAIN / TEMP > 100.3'F 02/02/21 11:00 02/27/21 20:44 Multi-Ingredient Ointment (Analgesic [place]) 1 vu PRN QID PRN TP MUSCLE PAIN 02/02/21 11:00 Al Hydroxide/Mg Hydroxide (Mylanta Plus Xs) 15 ml PRN AFTMEALHC PRN PO DYSPEPSIA 02/02/21 11:00 Magnesium Hydroxide (Milk Of Magnesia) 2,400 mg PRN QHS PRN PO 2ND CHOICE CONSTIPATION 02/02/21 11:00 02/12/21 05:24 Acetaminophen (Tylenol) 650 mg PRN Q6HRS PRN PO pain or fever 02/02/21 13:45 UNV Amiodarone HCl (Cordarone) 200 mg DAILY PO 02/03/21 09:00 02/27/21 08:48 Apixaban (Eliquis) 2.5 mg BID PO 02/02/21 21:00 02/27/21 20:42 Carvedilol (Coreg) 12.5 mg BIDWMEALS PO 02/02/21 17:00 02/27/21 16:15 Cyclobenzaprine HCl (Flexeril) 10 mg DAILY PO 02/03/21 09:00 02/27/21 08:48 Fluconazole (Diflucan) 100 mg DAILY PO 02/03/21 09:00 02/07/21 09:30 DC 02/07/21 08:39 Furosemide (Lasix) 40 mg DAILY PO 02/03/21 09:00 02/02/21 16:16 DC Haloperidol (Haldol) 1 mg DAILY PO 02/03/21 09:00 02/03/21 14:19 DC 02/03/21 08:55 Hyoscyamine (Anaspaz) 0.125 mg PRN Q8HRS PRN PO GI SYMPTOMS 02/02/21 13:45 Levothyroxine Sodium (Synthroid) 50 mcg DAILY06 PO 02/03/21 06:00 02/27/21 04:33 Lorazepam (Ativan) 1 mg 1500 PO 02/02/21 15:00 02/03/21 14:19 DC 02/02/21 16:43 Losartan Potassium (Cozaar) 50 mg DAILY PO 02/03/21 09:00 02/02/21 16:16 DC Lubiprostone (Amitiza) 24 mcg BID PO 02/02/21 21:00 02/27/21 20:44 Nystatin (Nystop) 1 vu PRN DAILY PRN TP YEAST UNDER BREAST 02/02/21 13:45 02/08/21 22:44 DC 02/08/21 10:17 Olanzapine (ZyPREXA) 5 mg BID PO 02/02/21 21:00 02/10/21 11:12 DC 02/10/21 08:33 Potassium Chloride (Klor-Con) 10 meq BID PO 02/02/21 21:00 02/27/21 20:42 Pregabalin (Lyrica) 75 mg BID PO 02/02/21 21:00 02/27/21 20:44 Quetiapine Fumarate (SEROquel) 50 mg PRN QHS PRN PO AGITATION 02/02/21 13:45 02/26/21 22:01 Quetiapine Fumarate (SEROquel) 25 mg DAILY PO 02/03/21 09:00 02/10/21 11:12 DC 02/10/21 08:32 Fluticasone/ Vilanterol (Breo Ellipta 100-25 Mcg) 1 puff DAILY INH 02/03/21 09:00 02/27/21 08:51 Non-Formulary Medication (Glucagon (Baqsimi)) 3 mg PRN PRN NS HYPOGLYCEMIA 02/02/21 13:45 UNV Insulin Glargine (Lantus Syringe) 8 unit QHS SQ 02/02/21 21:00 02/17/21 18:26 DC 02/11/21 21:05 Non-Formulary Medication (Insulin Lispro (Humalog)) 100 unit ACHS PRN SQ DIABETES MELLITIS 02/02/21 13:45 02/02/21 18:17 DC Pantoprazole Sodium (Protonix) 40 mg DAILY PO 02/03/21 09:00 02/27/21 08:49 Polyethylene Glycol (miraLAX) 17 gm PRN BID PRN PO 1ST CHOICE CONSTIPATION 02/02/21 14:15 02/13/21 08:00 Furosemide (Lasix) 20 mg DAILY PO 02/03/21 09:00 02/27/21 08:48 Losartan Potassium (Cozaar) 25 mg DAILY PO 02/03/21 09:00 02/27/21 08:49 Non-Formulary Medication (Insulin Lispro (Humalog)) 100 unit TIDACHC SQ 02/02/21 21:00 UNV Olanzapine (ZyPREXA ZYDIS) 2.5 mg PRN Q2HR PRN PO PSYCHOSIS 02/02/21 18:30 02/26/21 22:01 Insulin Human Lispro (HumaLOG) 0-5 UNITS TIDWMEALS SQ 02/03/21 08:00 02/27/21 17:00 Dextrose (Dextrose 50%-Water Syringe) 12.5 gm PRN Q15MIN PRN IV SEE COMMENTS 02/02/21 18:45 Lorazepam (Ativan) 0.5 mg 1500 PO 02/03/21 15:00 02/05/21 23:50 DC 02/05/21 17:54 Nystatin (Nystop) 1 vu BID TP 02/09/21 09:00 02/27/21 20:44 Olanzapine (ZyPREXA) 5 mg DAILY PO 02/11/21 09:00 02/21/21 20:20 DC 02/21/21 08:47 Olanzapine (ZyPREXA) 7.5 mg QHS PO 02/10/21 21:00 02/21/21 20:20 DC 02/19/21 19:32 Fluticasone Propionate (Flonase) 2 spray DAILY NS 02/20/21 09:00 02/27/21 08:50 Quetiapine Fumarate (SEROquel) 12.5 mg TIDAFTMEAL PO 02/22/21 09:00 02/22/21 14:21 DC 02/22/21 13:31 Sertraline HCl (Zoloft) 50 mg DAILY PO 02/22/21 09:00 02/26/21 18:18 DC 02/26/21 08:53 Quetiapine Fumarate (SEROquel) 12.5 mg 0900,1300,1700 PO 02/22/21 17:00 02/27/21 16:15 Sertraline HCl (Zoloft) 75 mg DAILY PO 02/27/21 09:00 02/27/21 08:49 Current Medications Medications (Trade) Dose Ordered Sig/Meet Route PRN Reason Start Time Stop Time Status Last Admin Dose Admin Sertraline HCl (Zoloft) 75 mg DAILY PO 02/27/21 09:00 02/27/21 08:49 I have reviewed the current psychotropics carefully including drug interactions. Risk benefit ratio favors no change other than as noted in my dictated progress note. Diagnosis: Problems: (1) Impulse control disorder, unspecified (2) Anxiety disorder, unspecified (3) Dementia, vascular, with depression (4) Dementia, vascular, with delusions (5) Dementia in Alzheimer's disease with depression (6) Dementia in Alzheimer's disease with delusions (7) Major neurocognitive disorder (8) Dementia of the Alzheimer's type with early onset with behavioral disturbance JARRETT LEONE MD February 27, 2021 22:05
[2021-02-28] MEDS: LEVOTHYROXINE 50 MCG TABLET PO SCH (05:56)
[2021-02-28 06:16] VITALS: BP 149/82
--- NOTE | 2021-02-28 06:52 | PDOC ---
Exam Note: Jose Daniel Note: This note is a late entry for 02/27/2021 covers elements not covered in my initial note. Subjective: The patient was seen individually in the evening of 02/27/2021 with Reba SANTOS, discussed and reviewed the chart. She slept 4-1/2 hours previous night. Previous evening she was yelling, refusing medications. Today she has done better, took her meds, crushed in yogurt. She shared a telephone call with granddaughter and seemed to do well. Review of Systems: Ambulation impaired in wheelchair, head bent forward. No CV, , pulmonary, eye, ENT system symptoms on review. Mental Status Exam: The patient is oriented to herself. Speech low in rate and rhythm, low in volume. Often response is monosyllabic. Poor eye contact. Insight and judgment, recent and remote memory, attention and concentration, fund of knowledge consistent with her diagnoses. Laboratory Data: Reviewed. Impression: Major neurocognitive disorder Alzheimer vascular with delusion, depression, behavioral disturbance. Anxiety disorder unspecified. Impulse control disorder unspecified. Plan: No change from initial note. Maintain Seroquel, Zoloft, Zyprexa p.r.n. Assessment: Vital Signs/I&O: Vital Signs Date Time Temp Pulse Resp B/P (MAP) Pulse Ox O2 Delivery O2 Flow Rate FiO2 02/28/21 06:16 97.9 76 18 149/82 (104) 96 02/26/21 05:58 Room Air I & O 02/27/21 02/27/21 02/28/21 15:00 23:00 07:00 Intake Total 600 ml 360 ml Balance 600 ml 360 ml Labs: Laboratory Tests Test 02/27/21 07:41 02/27/21 11:11 02/27/21 16:05 02/27/21 19:19 Glucose (Fingerstick) 84 mg/dL (70-99) 161 mg/dL (70-99) H 155 mg/dL (70-99) H 100 mg/dL (70-99) H Current Medications: Meds: Laboratory Tests Test 02/27/21 07:41 02/27/21 11:11 02/27/21 16:05 02/27/21 19:19 Glucose (Fingerstick) 84 mg/dL 161 mg/dL 155 mg/dL 100 mg/dL Current Medications Medications (Trade) Dose Ordered Sig/Meet Route PRN Reason Start Time Stop Time Status Last Admin Dose Admin Acetaminophen (Tylenol) 650 mg PRN Q6HRS PRN PO MILD PAIN / TEMP > 100.3'F 02/02/21 11:00 02/27/21 20:44 Multi-Ingredient Ointment (Analgesic [place]) 1 vu PRN QID PRN TP MUSCLE PAIN 02/02/21 11:00 Al Hydroxide/Mg Hydroxide (Mylanta Plus Xs) 15 ml PRN AFTMEALHC PRN PO DYSPEPSIA 02/02/21 11:00 Magnesium Hydroxide (Milk Of Magnesia) 2,400 mg PRN QHS PRN PO 2ND CHOICE CONSTIPATION 02/02/21 11:00 02/12/21 05:24 Acetaminophen (Tylenol) 650 mg PRN Q6HRS PRN PO pain or fever 02/02/21 13:45 UNV Amiodarone HCl (Cordarone) 200 mg DAILY PO 02/03/21 09:00 02/27/21 08:48 Apixaban (Eliquis) 2.5 mg BID PO 02/02/21 21:00 02/27/21 20:42 Carvedilol (Coreg) 12.5 mg BIDWMEALS PO 02/02/21 17:00 02/27/21 16:15 Cyclobenzaprine HCl (Flexeril) 10 mg DAILY PO 02/03/21 09:00 02/27/21 08:48 Fluconazole (Diflucan) 100 mg DAILY PO 02/03/21 09:00 02/07/21 09:30 DC 02/07/21 08:39 Furosemide (Lasix) 40 mg DAILY PO 02/03/21 09:00 02/02/21 16:16 DC Haloperidol (Haldol) 1 mg DAILY PO 02/03/21 09:00 02/03/21 14:19 DC 02/03/21 08:55 Hyoscyamine (Anaspaz) 0.125 mg PRN Q8HRS PRN PO GI SYMPTOMS 02/02/21 13:45 Levothyroxine Sodium (Synthroid) 50 mcg DAILY06 PO 02/03/21 06:00 02/28/21 05:56 Lorazepam (Ativan) 1 mg 1500 PO 02/02/21 15:00 02/03/21 14:19 DC 02/02/21 16:43 Losartan Potassium (Cozaar) 50 mg DAILY PO 02/03/21 09:00 02/02/21 16:16 DC Lubiprostone (Amitiza) 24 mcg BID PO 02/02/21 21:00 02/27/21 20:44 Nystatin (Nystop) 1 vu PRN DAILY PRN TP YEAST UNDER BREAST 02/02/21 13:45 02/08/21 22:44 DC 02/08/21 10:17 Olanzapine (ZyPREXA) 5 mg BID PO 02/02/21 21:00 02/10/21 11:12 DC 02/10/21 08:33 Potassium Chloride (Klor-Con) 10 meq BID PO 02/02/21 21:00 02/27/21 20:42 Pregabalin (Lyrica) 75 mg BID PO 02/02/21 21:00 02/27/21 20:44 Quetiapine Fumarate (SEROquel) 50 mg PRN QHS PRN PO AGITATION 02/02/21 13:45 02/26/21 22:01 Quetiapine Fumarate (SEROquel) 25 mg DAILY PO 02/03/21 09:00 02/10/21 11:12 DC 02/10/21 08:32 Fluticasone/ Vilanterol (Breo Ellipta 100-25 Mcg) 1 puff DAILY INH 02/03/21 09:00 02/27/21 08:51 Non-Formulary Medication (Glucagon (Baqsimi)) 3 mg PRN PRN NS HYPOGLYCEMIA 02/02/21 13:45 UNV Insulin Glargine (Lantus Syringe) 8 unit QHS SQ 02/02/21 21:00 02/17/21 18:26 DC 02/11/21 21:05 Non-Formulary Medication (Insulin Lispro (Humalog)) 100 unit ACHS PRN SQ DIABETES MELLITIS 02/02/21 13:45 02/02/21 18:17 DC Pantoprazole Sodium (Protonix) 40 mg DAILY PO 02/03/21 09:00 02/27/21 08:49 Polyethylene Glycol (miraLAX) 17 gm PRN BID PRN PO 1ST CHOICE CONSTIPATION 02/02/21 14:15 02/13/21 08:00 Furosemide (Lasix) 20 mg DAILY PO 02/03/21 09:00 02/27/21 08:48 Losartan Potassium (Cozaar) 25 mg DAILY PO 02/03/21 09:00 02/27/21 08:49 Non-Formulary Medication (Insulin Lispro (Humalog)) 100 unit TIDACHC SQ 02/02/21 21:00 UNV Olanzapine (ZyPREXA ZYDIS) 2.5 mg PRN Q2HR PRN PO PSYCHOSIS 02/02/21 18:30 02/26/21 22:01 Insulin Human Lispro (HumaLOG) 0-5 UNITS TIDWMEALS SQ 02/03/21 08:00 02/27/21 17:00 Dextrose (Dextrose 50%-Water Syringe) 12.5 gm PRN Q15MIN PRN IV SEE COMMENTS 02/02/21 18:45 Lorazepam (Ativan) 0.5 mg 1500 PO 02/03/21 15:00 02/05/21 23:50 DC 02/05/21 17:54 Nystatin (Nystop) 1 vu BID TP 02/09/21 09:00 02/27/21 20:44 Olanzapine (ZyPREXA) 5 mg DAILY PO 02/11/21 09:00 02/21/21 20:20 DC 02/21/21 08:47 Olanzapine (ZyPREXA) 7.5 mg QHS PO 02/10/21 21:00 02/21/21 20:20 DC 02/19/21 19:32 Fluticasone Propionate (Flonase) 2 spray DAILY NS 02/20/21 09:00 02/27/21 08:50 Quetiapine Fumarate (SEROquel) 12.5 mg TIDAFTMEAL PO 02/22/21 09:00 02/22/21 14:21 DC 02/22/21 13:31 Sertraline HCl (Zoloft) 50 mg DAILY PO 02/22/21 09:00 02/26/21 18:18 DC 02/26/21 08:53 Quetiapine Fumarate (SEROquel) 12.5 mg 0900,1300,1700 PO 02/22/21 17:00 02/27/21 16:15 Sertraline HCl (Zoloft) 75 mg DAILY PO 02/27/21 09:00 02/27/21 08:49 Current Medications Medications (Trade) Dose Ordered Sig/Meet Route PRN Reason Start Time Stop Time Status Last Admin Dose Admin Sertraline HCl (Zoloft) 75 mg DAILY PO 02/27/21 09:00 02/27/21 08:49 I have reviewed the current psychotropics carefully including drug interactions. Risk benefit ratio favors no change other than as noted in my dictated progress note. Diagnosis: Problems: (1) Impulse control disorder, unspecified (2) Anxiety disorder, unspecified (3) Dementia, vascular, with depression (4) Dementia, vascular, with delusions (5) Dementia in Alzheimer's disease with depression (6) Dementia in Alzheimer's disease with delusions (7) Major neurocognitive disorder (8) Dementia of the Alzheimer's type with early onset with behavioral disturbance JARRETT LEONE MD February 28, 2021 06:52
[2021-02-28] MEDS: INSULIN LISPRO 300 UNITS/3 ML VIAL. SQ SCH ×3 (08:00→16:41)
[2021-02-28] MEDS: CARVEDILOL 12.5 MG TABLET PO SCH ×2 (08:16→17:08)
[2021-02-28] MEDS: POTASSIUM CHLORIDE 10 MEQ TABLET.ER. PO SCH ×2 (08:16→20:28)
[2021-02-28] MEDS: FUROSEMIDE 20 MG TABLET PO SCH (08:17)
[2021-02-28] MEDS: AMIODARONE HCL 200 MG TABLET. PO SCH (08:17)
[2021-02-28] MEDS: SERTRALINE 25 MG TABLET. PO SCH (08:17)
[2021-02-28] MEDS: APIXABAN 2.5 MG TABLET PO SCH ×2 (08:17→20:28)
[2021-02-28] MEDS: PANTOPRAZOLE 40 MG TABLET. PO SCH (08:17)
[2021-02-28] MEDS: PREGABALIN 75 MG CAPSULE PO SCH ×2 (08:18→20:30)
[2021-02-28] MEDS: QUEtiapine 25 MG TABLET. PO SCH ×3 (08:18→17:08)
[2021-02-28] MEDS: LUBIPROSTONE 24 MCG CAPSULE PO SCH ×2 (08:18→20:28)
[2021-02-28] MEDS: LOSARTAN 25 MG TABLET. PO SCH (08:18)
[2021-02-28] MEDS: CYCLOBENZAPRINE 10 MG TABLET. PO SCH (08:18)
[2021-02-28] MEDS: NYSTATIN TOPICAL POWDER 15GM BOTTLE. TP SCH ×2 (08:18→20:29)
[2021-02-28] MEDS: FLUTICASONE/VILANTEROL 100/25 INHALER. INH SCH (08:19)
[2021-02-28] MEDS: FLUTICASONE 50MCG/NASAL SPRAY 16GM BOTTLE. NS SCH (08:19)
[2021-02-28 15:55] VITALS: BP 100/66
[2021-02-28] MEDS: ACETAMINOPHEN 325 MG TABLET PO PRN (20:30)
--- NOTE | 2021-02-28 22:10 | PDOC ---
Exam Note: Jose Daniel Note: Please also refer to the separate dictated note~for this date of service dictated separately.~Patient seen individually. Discussed the patient with Nursing staff reviewed the chart.~Reviewed interim history and current functioning. Reviewed vital signs,~Labs/ Radiology~and current medications noted below. Continue current treatment with the changes noted in the dictated addendum note Assessment: Vital Signs/I&O: Vital Signs Date Time Temp Pulse Resp B/P (MAP) Pulse Ox O2 Delivery O2 Flow Rate FiO2 02/28/21 17:08 63 100/66 02/28/21 15:55 97.6 18 96 02/26/21 05:58 Room Air I & O 02/27/21 02/27/21 02/28/21 15:00 23:00 07:00 Intake Total 600 ml 360 ml Balance 600 ml 360 ml Labs: Laboratory Tests Test 02/28/21 08:11 02/28/21 11:15 02/28/21 16:38 02/28/21 19:04 Glucose (Fingerstick) 97 mg/dL (70-99) 126 mg/dL (70-99) H 146 mg/dL (70-99) H 132 mg/dL (70-99) H Current Medications: Meds: Laboratory Tests Test 02/28/21 08:11 02/28/21 11:15 02/28/21 16:38 02/28/21 19:04 Glucose (Fingerstick) 97 mg/dL 126 mg/dL 146 mg/dL 132 mg/dL Current Medications Medications (Trade) Dose Ordered Sig/Meet Route PRN Reason Start Time Stop Time Status Last Admin Dose Admin Acetaminophen (Tylenol) 650 mg PRN Q6HRS PRN PO MILD PAIN / TEMP > 100.3'F 02/02/21 11:00 02/28/21 20:30 Multi-Ingredient Ointment (Analgesic [place]) 1 vu PRN QID PRN TP MUSCLE PAIN 02/02/21 11:00 Al Hydroxide/Mg Hydroxide (Mylanta Plus Xs) 15 ml PRN AFTMEALHC PRN PO DYSPEPSIA 02/02/21 11:00 Magnesium Hydroxide (Milk Of Magnesia) 2,400 mg PRN QHS PRN PO 2ND CHOICE CONSTIPATION 02/02/21 11:00 02/12/21 05:24 Acetaminophen (Tylenol) 650 mg PRN Q6HRS PRN PO pain or fever 02/02/21 13:45 UNV Amiodarone HCl (Cordarone) 200 mg DAILY PO 02/03/21 09:00 02/28/21 08:17 Apixaban (Eliquis) 2.5 mg BID PO 02/02/21 21:00 02/28/21 20:28 Carvedilol (Coreg) 12.5 mg BIDWMEALS PO 02/02/21 17:00 02/28/21 17:08 Cyclobenzaprine HCl (Flexeril) 10 mg DAILY PO 02/03/21 09:00 02/28/21 08:18 Fluconazole (Diflucan) 100 mg DAILY PO 02/03/21 09:00 02/07/21 09:30 DC 02/07/21 08:39 Furosemide (Lasix) 40 mg DAILY PO 02/03/21 09:00 02/02/21 16:16 DC Haloperidol (Haldol) 1 mg DAILY PO 02/03/21 09:00 02/03/21 14:19 DC 02/03/21 08:55 Hyoscyamine (Anaspaz) 0.125 mg PRN Q8HRS PRN PO GI SYMPTOMS 02/02/21 13:45 Levothyroxine Sodium (Synthroid) 50 mcg DAILY06 PO 02/03/21 06:00 02/28/21 05:56 Lorazepam (Ativan) 1 mg 1500 PO 02/02/21 15:00 02/03/21 14:19 DC 02/02/21 16:43 Losartan Potassium (Cozaar) 50 mg DAILY PO 02/03/21 09:00 02/02/21 16:16 DC Lubiprostone (Amitiza) 24 mcg BID PO 02/02/21 21:00 02/28/21 20:28 Nystatin (Nystop) 1 vu PRN DAILY PRN TP YEAST UNDER BREAST 02/02/21 13:45 02/08/21 22:44 DC 02/08/21 10:17 Olanzapine (ZyPREXA) 5 mg BID PO 02/02/21 21:00 02/10/21 11:12 DC 02/10/21 08:33 Potassium Chloride (Klor-Con) 10 meq BID PO 02/02/21 21:00 02/28/21 20:28 Pregabalin (Lyrica) 75 mg BID PO 02/02/21 21:00 02/28/21 20:30 Quetiapine Fumarate (SEROquel) 50 mg PRN QHS PRN PO AGITATION 02/02/21 13:45 02/26/21 22:01 Quetiapine Fumarate (SEROquel) 25 mg DAILY PO 02/03/21 09:00 02/10/21 11:12 DC 02/10/21 08:32 Fluticasone/ Vilanterol (Breo Ellipta 100-25 Mcg) 1 puff DAILY INH 02/03/21 09:00 02/28/21 08:19 Non-Formulary Medication (Glucagon (Baqsimi)) 3 mg PRN PRN NS HYPOGLYCEMIA 02/02/21 13:45 UNV Insulin Glargine (Lantus Syringe) 8 unit QHS SQ 02/02/21 21:00 02/17/21 18:26 DC 02/11/21 21:05 Non-Formulary Medication (Insulin Lispro (Humalog)) 100 unit ACHS PRN SQ DIABETES MELLITIS 02/02/21 13:45 02/02/21 18:17 DC Pantoprazole Sodium (Protonix) 40 mg DAILY PO 02/03/21 09:00 02/28/21 08:17 Polyethylene Glycol (miraLAX) 17 gm PRN BID PRN PO 1ST CHOICE CONSTIPATION 02/02/21 14:15 02/13/21 08:00 Furosemide (Lasix) 20 mg DAILY PO 02/03/21 09:00 02/28/21 08:17 Losartan Potassium (Cozaar) 25 mg DAILY PO 02/03/21 09:00 02/28/21 08:18 Non-Formulary Medication (Insulin Lispro (Humalog)) 100 unit TIDACHC SQ 02/02/21 21:00 UNV Olanzapine (ZyPREXA ZYDIS) 2.5 mg PRN Q2HR PRN PO PSYCHOSIS 02/02/21 18:30 02/26/21 22:01 Insulin Human Lispro (HumaLOG) 0-5 UNITS TIDWMEALS SQ 02/03/21 08:00 02/27/21 17:00 Dextrose (Dextrose 50%-Water Syringe) 12.5 gm PRN Q15MIN PRN IV SEE COMMENTS 02/02/21 18:45 Lorazepam (Ativan) 0.5 mg 1500 PO 02/03/21 15:00 02/05/21 23:50 DC 02/05/21 17:54 Nystatin (Nystop) 1 vu BID TP 02/09/21 09:00 02/28/21 20:29 Olanzapine (ZyPREXA) 5 mg DAILY PO 02/11/21 09:00 02/21/21 20:20 DC 02/21/21 08:47 Olanzapine (ZyPREXA) 7.5 mg QHS PO 02/10/21 21:00 02/21/21 20:20 DC 02/19/21 19:32 Fluticasone Propionate (Flonase) 2 spray DAILY NS 02/20/21 09:00 02/28/21 08:19 Quetiapine Fumarate (SEROquel) 12.5 mg TIDAFTMEAL PO 02/22/21 09:00 02/22/21 14:21 DC 02/22/21 13:31 Sertraline HCl (Zoloft) 50 mg DAILY PO 02/22/21 09:00 02/26/21 18:18 DC 02/26/21 08:53 Quetiapine Fumarate (SEROquel) 12.5 mg 0900,1300,1700 PO 02/22/21 17:00 02/28/21 17:08 Sertraline HCl (Zoloft) 75 mg DAILY PO 02/27/21 09:00 02/28/21 08:17 I have reviewed the current psychotropics carefully including drug interactions. Risk benefit ratio favors no change other than as noted in my dictated progress note. Diagnosis: Problems: (1) Impulse control disorder, unspecified (2) Anxiety disorder, unspecified (3) Dementia, vascular, with depression (4) Dementia, vascular, with delusions (5) Dementia in Alzheimer's disease with depression (6) Dementia in Alzheimer's disease with delusions (7) Major neurocognitive disorder (8) Dementia of the Alzheimer's type with early onset with behavioral disturbance JARRETT LEONE MD February 28, 2021 22:10
[2021-03-01] MEDS: LEVOTHYROXINE 50 MCG TABLET PO SCH (05:40)
[2021-03-01 06:09] VITALS: BP 127/66
[2021-03-01 06:39] LABS: BASO % 1 % (0-3); EOS # 0.1 x10^3/uL (0.0-0.7); EOS % 2 % (0-3); HEMATOCRIT 38.5 % (36.0-47.0); HEMOGLOBIN 12.3 g/dL (12.0-15.5); LYMPH # 1.9 x10^3/uL (1.0-4.8); LYMPH % 38 % (24-48); MEAN CORPUSCULAR HEMOGLOBIN 30 pg (25-35); MEAN CORPUSCULAR HGB CONC 32 g/dL (31-37); MEAN CORPUSCULAR VOLUME 94 fL (79-100); MONO # 0.4 x10^3/uL (0.0-1.1); MONO % 9 % (0-9); NEUT # 2.5 x10^3uL (1.8-7.7); NEUT % 51 % (31-73); PLATELET COUNT 174 x10^3/uL (140-400); RED CELL DISTRIBUTION WIDTH 17.2 % (11.5-14.5)
[2021-03-01 06:59] LABS: ALBUMIN 2.7 g/dL (3.4-5.0); ALBUMIN/GLOBULIN RATIO 0.7 (1.0-1.7); CALCIUM 8.6 mg/dL (8.5-10.1); CREATININE 1.2 mg/dL (0.6-1.0); GFR 42.8; POTASSIUM 3.9 mmol/L (3.5-5.1); TOTAL BILIRUBIN 0.3 mg/dL (0.2-1.0); TOTAL PROTEIN 6.7 g/dL (6.4-8.2)
[2021-03-01] MEDS: INSULIN LISPRO 300 UNITS/3 ML VIAL. SQ SCH ×3 (08:00→17:00)
[2021-03-01] MEDS: SERTRALINE 25 MG TABLET. PO SCH (08:54)
[2021-03-01] MEDS: POTASSIUM CHLORIDE 10 MEQ TABLET.ER. PO SCH ×2 (08:54→20:55)
[2021-03-01] MEDS: CYCLOBENZAPRINE 10 MG TABLET. PO SCH (08:55)
[2021-03-01] MEDS: APIXABAN 2.5 MG TABLET PO SCH ×2 (08:55→20:55)
[2021-03-01] MEDS: LOSARTAN 25 MG TABLET. PO SCH (08:55)
[2021-03-01] MEDS: AMIODARONE HCL 200 MG TABLET. PO SCH (08:56)
[2021-03-01] MEDS: QUEtiapine 25 MG TABLET. PO SCH (08:57)
[2021-03-01] MEDS: FUROSEMIDE 20 MG TABLET PO SCH (08:57)
[2021-03-01] MEDS: PANTOPRAZOLE 40 MG TABLET. PO SCH (08:57)
[2021-03-01] MEDS: CARVEDILOL 12.5 MG TABLET PO SCH ×2 (08:57→17:00)
[2021-03-01] MEDS: LUBIPROSTONE 24 MCG CAPSULE PO SCH ×2 (09:00→22:09)
[2021-03-01] MEDS: PREGABALIN 75 MG CAPSULE PO SCH ×2 (09:00→22:10)
[2021-03-01] MEDS: FLUTICASONE/VILANTEROL 100/25 INHALER. INH SCH (09:00)
[2021-03-01] MEDS: FLUTICASONE 50MCG/NASAL SPRAY 16GM BOTTLE. NS SCH (09:01)
[2021-03-01] MEDS: NYSTATIN TOPICAL POWDER 15GM BOTTLE. TP SCH ×2 (09:08→20:55)
[2021-03-01] MEDS ORDERED: QUEtiapine 25 MG TABLET. PO SCH ×2 (13:00→21:00)
[2021-03-01 15:51] VITALS: BP 126/75
--- NOTE | 2021-03-01 21:50 | PDOC ---
Exam Note: Jose Daniel Note: Please also refer to the separate dictated note~for this date of service dictated separately.~Patient seen individually. Discussed the patient with Nursing staff reviewed the chart.~Reviewed interim history and current functioning. Reviewed vital signs,~Labs/ Radiology~and current medications noted below. Continue current treatment with the changes noted in the dictated addendum note Assessment: Vital Signs/I&O: Vital Signs Date Time Temp Pulse Resp B/P (MAP) Pulse Ox O2 Delivery O2 Flow Rate FiO2 03/01/21 17:00 58 126/75 03/01/21 15:51 97.1 16 93 02/26/21 05:58 Room Air I & O 02/28/21 02/28/21 03/01/21 15:00 23:00 07:00 Intake Total 600 ml 360 ml Balance 600 ml 360 ml Labs: Laboratory Tests Test 03/01/21 06:14 03/01/21 07:28 03/01/21 11:43 03/01/21 16:56 White Blood Count 5.0 x10^3/uL (4.0-11.0) Red Blood Count 4.10 x10^6/uL (3.50-5.40) Hemoglobin 12.3 g/dL (12.0-15.5) Hematocrit 38.5 % (36.0-47.0) Mean Corpuscular Volume 94 fL (79-100) Mean Corpuscular Hemoglobin 30 pg (25-35) Mean Corpuscular Hemoglobin Concent 32 g/dL (31-37) Red Cell Distribution Width 17.2 % (11.5-14.5) H Platelet Count 174 x10^3/uL (140-400) Neutrophils (%) (Auto) 51 % (31-73) Lymphocytes (%) (Auto) 38 % (24-48) Monocytes (%) (Auto) 9 % (0-9) Eosinophils (%) (Auto) 2 % (0-3) Basophils (%) (Auto) 1 % (0-3) Neutrophils # (Auto) 2.5 x10^3uL (1.8-7.7) Lymphocytes # (Auto) 1.9 x10^3/uL (1.0-4.8) Monocytes # (Auto) 0.4 x10^3/uL (0.0-1.1) Eosinophils # (Auto) 0.1 x10^3/uL (0.0-0.7) Basophils # (Auto) 0.0 x10^3/uL (0.0-0.2) Sodium Level 146 mmol/L (136-145) H Potassium Level 3.9 mmol/L (3.5-5.1) Chloride Level 111 mmol/L (98-107) H Carbon Dioxide Level 29 mmol/L (21-32) Anion Gap 6 (6-14) Blood Urea Nitrogen 31 mg/dL (7-20) H Creatinine 1.2 mg/dL (0.6-1.0) H Estimated GFR (Cockcroft-Gault) 42.8 BUN/Creatinine Ratio 26 (6-20) H Glucose Level 93 mg/dL (70-99) Calcium Level 8.6 mg/dL (8.5-10.1) Total Bilirubin 0.3 mg/dL (0.2-1.0) Aspartate Amino Transferase (AST) 18 U/L (15-37) Alanine Aminotransferase (ALT) 26 U/L (14-59) Alkaline Phosphatase 121 U/L (46-116) H Total Protein 6.7 g/dL (6.4-8.2) Albumin 2.7 g/dL (3.4-5.0) L Albumin/Globulin Ratio 0.7 (1.0-1.7) L Glucose (Fingerstick) 91 mg/dL (70-99) 120 mg/dL (70-99) H 76 mg/dL (70-99) Test 03/01/21 19:28 Glucose (Fingerstick) 95 mg/dL (70-99) Current Medications: Meds: Laboratory Tests Test 03/01/21 06:14 03/01/21 07:28 03/01/21 11:43 03/01/21 16:56 White Blood Count 5.0 x10^3/uL Red Blood Count 4.10 x10^6/uL Hemoglobin 12.3 g/dL Hematocrit 38.5 % Mean Corpuscular Volume 94 fL Mean Corpuscular Hemoglobin 30 pg Mean Corpuscular Hemoglobin Concent 32 g/dL Red Cell Distribution Width 17.2 % Platelet Count 174 x10^3/uL Neutrophils (%) (Auto) 51 % Lymphocytes (%) (Auto) 38 % Monocytes (%) (Auto) 9 % Eosinophils (%) (Auto) 2 % Basophils (%) (Auto) 1 % Neutrophils # (Auto) 2.5 x10^3uL Lymphocytes # (Auto) 1.9 x10^3/uL Monocytes # (Auto) 0.4 x10^3/uL Eosinophils # (Auto) 0.1 x10^3/uL Basophils # (Auto) 0.0 x10^3/uL Sodium Level 146 mmol/L Potassium Level 3.9 mmol/L Chloride Level 111 mmol/L Carbon Dioxide Level 29 mmol/L Anion Gap 6 Blood Urea Nitrogen 31 mg/dL Creatinine 1.2 mg/dL Estimated GFR (Cockcroft-Gault) 42.8 BUN/Creatinine Ratio 26 Glucose Level 93 mg/dL Calcium Level 8.6 mg/dL Total Bilirubin 0.3 mg/dL Aspartate Amino Transf (AST/SGOT) 18 U/L Alanine Aminotransferase (ALT/SGPT) 26 U/L Alkaline Phosphatase 121 U/L Total Protein 6.7 g/dL Albumin 2.7 g/dL Albumin/Globulin Ratio 0.7 Glucose (Fingerstick) 91 mg/dL 120 mg/dL 76 mg/dL Test 03/01/21 19:28 Glucose (Fingerstick) 95 mg/dL Current Medications Medications (Trade) Dose Ordered Sig/Meet Route PRN Reason Start Time Stop Time Status Last Admin Dose Admin Acetaminophen (Tylenol) 650 mg PRN Q6HRS PRN PO MILD PAIN / TEMP > 100.3'F 02/02/21 11:00 02/28/21 20:30 Multi-Ingredient Ointment (Analgesic [place]) 1 vu PRN QID PRN TP MUSCLE PAIN 02/02/21 11:00 Al Hydroxide/Mg Hydroxide (Mylanta Plus Xs) 15 ml PRN AFTMEALHC PRN PO DYSPEPSIA 02/02/21 11:00 Magnesium Hydroxide (Milk Of Magnesia) 2,400 mg PRN QHS PRN PO 2ND CHOICE CONSTIPATION 02/02/21 11:00 02/12/21 05:24 Acetaminophen (Tylenol) 650 mg PRN Q6HRS PRN PO pain or fever 02/02/21 13:45 UNV Amiodarone HCl (Cordarone) 200 mg DAILY PO 02/03/21 09:00 03/01/21 08:56 Apixaban (Eliquis) 2.5 mg BID PO 02/02/21 21:00 03/01/21 20:55 Carvedilol (Coreg) 12.5 mg BIDWMEALS PO 02/02/21 17:00 03/01/21 08:57 Cyclobenzaprine HCl (Flexeril) 10 mg DAILY PO 02/03/21 09:00 03/01/21 08:55 Fluconazole (Diflucan) 100 mg DAILY PO 02/03/21 09:00 02/07/21 09:30 DC 02/07/21 08:39 Furosemide (Lasix) 40 mg DAILY PO 02/03/21 09:00 02/02/21 16:16 DC Haloperidol (Haldol) 1 mg DAILY PO 02/03/21 09:00 02/03/21 14:19 DC 02/03/21 08:55 Hyoscyamine (Anaspaz) 0.125 mg PRN Q8HRS PRN PO GI SYMPTOMS 02/02/21 13:45 Levothyroxine Sodium (Synthroid) 50 mcg DAILY06 PO 02/03/21 06:00 03/01/21 05:40 Lorazepam (Ativan) 1 mg 1500 PO 02/02/21 15:00 02/03/21 14:19 DC 02/02/21 16:43 Losartan Potassium (Cozaar) 50 mg DAILY PO 02/03/21 09:00 02/02/21 16:16 DC Lubiprostone (Amitiza) 24 mcg BID PO 02/02/21 21:00 03/01/21 09:00 Nystatin (Nystop) 1 vu PRN DAILY PRN TP YEAST UNDER BREAST 02/02/21 13:45 02/08/21 22:44 DC 02/08/21 10:17 Olanzapine (ZyPREXA) 5 mg BID PO 02/02/21 21:00 02/10/21 11:12 DC 02/10/21 08:33 Potassium Chloride (Klor-Con) 10 meq BID PO 02/02/21 21:00 03/01/21 20:55 Pregabalin (Lyrica) 75 mg BID PO 02/02/21 21:00 03/01/21 09:00 Quetiapine Fumarate (SEROquel) 50 mg PRN QHS PRN PO AGITATION 02/02/21 13:45 02/26/21 22:01 Quetiapine Fumarate (SEROquel) 25 mg DAILY PO 02/03/21 09:00 02/10/21 11:12 DC 02/10/21 08:32 Fluticasone/ Vilanterol (Breo Ellipta 100-25 Mcg) 1 puff DAILY INH 02/03/21 09:00 03/01/21 09:00 Non-Formulary Medication (Glucagon (Baqsimi)) 3 mg PRN PRN NS HYPOGLYCEMIA 02/02/21 13:45 UNV Insulin Glargine (Lantus Syringe) 8 unit QHS SQ 02/02/21 21:00 02/17/21 18:26 DC 02/11/21 21:05 Non-Formulary Medication (Insulin Lispro (Humalog)) 100 unit ACHS PRN SQ DIABETES MELLITIS 02/02/21 13:45 02/02/21 18:17 DC Pantoprazole Sodium (Protonix) 40 mg DAILY PO 02/03/21 09:00 03/01/21 08:57 Polyethylene Glycol (miraLAX) 17 gm PRN BID PRN PO 1ST CHOICE CONSTIPATION 02/02/21 14:15 02/13/21 08:00 Furosemide (Lasix) 20 mg DAILY PO 02/03/21 09:00 03/01/21 08:57 Losartan Potassium (Cozaar) 25 mg DAILY PO 02/03/21 09:00 03/01/21 08:55 Non-Formulary Medication (Insulin Lispro (Humalog)) 100 unit TIDACHC SQ 02/02/21 21:00 UNV Olanzapine (ZyPREXA ZYDIS) 2.5 mg PRN Q2HR PRN PO PSYCHOSIS 02/02/21 18:30 02/26/21 22:01 Insulin Human Lispro (HumaLOG) 0-5 UNITS TIDWMEALS SQ 02/03/21 08:00 02/27/21 17:00 Dextrose (Dextrose 50%-Water Syringe) 12.5 gm PRN Q15MIN PRN IV SEE COMMENTS 02/02/21 18:45 Lorazepam (Ativan) 0.5 mg 1500 PO 02/03/21 15:00 02/05/21 23:50 DC 02/05/21 17:54 Nystatin (Nystop) 1 vu BID TP 02/09/21 09:00 03/01/21 20:55 Olanzapine (ZyPREXA) 5 mg DAILY PO 02/11/21 09:00 02/21/21 20:20 DC 02/21/21 08:47 Olanzapine (ZyPREXA) 7.5 mg QHS PO 02/10/21 21:00 02/21/21 20:20 DC 02/19/21 19:32 Fluticasone Propionate (Flonase) 2 spray DAILY NS 02/20/21 09:00 03/01/21 09:01 Quetiapine Fumarate (SEROquel) 12.5 mg TIDAFTMEAL PO 02/22/21 09:00 02/22/21 14:21 DC 02/22/21 13:31 Sertraline HCl (Zoloft) 50 mg DAILY PO 02/22/21 09:00 02/26/21 18:18 DC 02/26/21 08:53 Quetiapine Fumarate (SEROquel) 12.5 mg 0900,1300,1700 PO 02/22/21 17:00 03/01/21 11:29 DC 03/01/21 08:57 Sertraline HCl (Zoloft) 75 mg DAILY PO 02/27/21 09:00 03/01/21 08:54 Quetiapine Fumarate (SEROquel) 25 mg 0900,1300,1700 PO 03/01/21 13:00 03/01/21 14:55 DC 03/01/21 13:12 Quetiapine Fumarate (SEROquel) 12.5 mg 0900,1300 PO 03/02/21 09:00 Quetiapine Fumarate (SEROquel) 25 mg QHS PO 03/01/21 21:00 03/01/21 20:55 Current Medications Medications (Trade) Dose Ordered Sig/Meet Route PRN Reason Start Time Stop Time Status Last Admin Dose Admin Quetiapine Fumarate (SEROquel) 25 mg 0900,1300,1700 PO 03/01/21 13:00 03/01/21 14:55 DC 03/01/21 13:12 Quetiapine Fumarate (SEROquel) 25 mg QHS PO 03/01/21 21:00 03/01/21 20:55 I have reviewed the current psychotropics carefully including drug interactions. Risk benefit ratio favors no change other than as noted in my dictated progress note. Diagnosis: Problems: (1) Impulse control disorder, unspecified (2) Anxiety disorder, unspecified (3) Dementia, vascular, with depression (4) Dementia, vascular, with delusions (5) Dementia in Alzheimer's disease with depression (6) Dementia in Alzheimer's disease with delusions (7) Major neurocognitive disorder (8) Dementia of the Alzheimer's type with early onset with behavioral disturbance JARRETT LEONE MD Mar 01, 2021 21:50
[2021-03-02] MEDS ORDERED: LOSA25TA PO (01:57)
[2021-03-02] MEDS ORDERED: QUET25TA5 PO ×3 (02:02→02:57)
[2021-03-02] MEDS ORDERED: FURO20TA3 PO (02:03)
[2021-03-02] MEDS ORDERED: FLUT16SP21 NS (02:10)
[2021-03-02] MEDS ORDERED: MAGN400O7 PO (02:11)
[2021-03-02] MEDS ORDERED: MAG30ORA2 PO (02:26)
[2021-03-02] MEDS ORDERED: SERT50TA PO (02:27)
[2021-03-02] MEDS ORDERED: SERT25TA PO (02:28)
[2021-03-02] MEDS ORDERED: METH57CR17 TP (02:39)
[2021-03-02 05:53] VITALS: BP 146/81
[2021-03-02] MEDS: LEVOTHYROXINE 50 MCG TABLET PO SCH (05:55)
--- NOTE | 2021-03-02 06:45 | PDOC ---
Exam Note: Jose Daniel Note: This note is a late entry for 02/28/2021 covers elements not covered in my initial note. Subjective: The patient was seen individually in the evening of 02/28/2021 with Reba SANTOS, discussed and reviewed the chart. She slept 5-1/2 hours previous night. She did well previous night. She spent time in the day room on 02/28. No yelling was noted. At times she is a little sedated. Review of Systems: Ambulation impaired in wheelchair, head bent forward. No CV, , pulmonary, eye, ENT system symptoms on review. Mental Status Exam: The patient is oriented to herself. Insight and judgment, recent and remote memory, attention and concentration, fund of knowledge consistent with her diagnoses. Laboratory Data: Reviewed. Impression: Major neurocognitive disorder Alzheimer vascular with delusion, depression, behavioral disturbance. Anxiety disorder unspecified. Impulse control disorder unspecified. Plan: No change from initial note. Assessment: Vital Signs/I&O: Vital Signs Date Time Temp Pulse Resp B/P (MAP) Pulse Ox O2 Delivery O2 Flow Rate FiO2 03/02/21 05:53 97.0 70 18 146/81 (102) 96 Room Air I & O 0 03/01/21 03/01/21 03/02/21 15:00 23:00 07:00 Intake Total 600 ml 360 ml 120 ml Balance 600 ml 360 ml 120 ml Labs: Laboratory Tests Test 03/01/21 07:28 03/01/21 11:43 03/01/21 16:56 03/01/21 19:28 Glucose (Fingerstick) 91 mg/dL (70-99) 120 mg/dL (70-99) H 76 mg/dL (70-99) 95 mg/dL (70-99) Current Medications: Meds: Laboratory Tests Test 03/01/21 07:28 03/01/21 11:43 03/01/21 16:56 03/01/21 19:28 Glucose (Fingerstick) 91 mg/dL 120 mg/dL 76 mg/dL 95 mg/dL Current Medications Medications (Trade) Dose Ordered Sig/Meet Route PRN Reason Start Time Stop Time Status Last Admin Dose Admin Acetaminophen (Tylenol) 650 mg PRN Q6HRS PRN PO MILD PAIN / TEMP > 100.3'F 02/02/21 11:00 02/28/21 20:30 Multi-Ingredient Ointment (Analgesic [place]) 1 vu PRN QID PRN TP MUSCLE PAIN 02/02/21 11:00 Al Hydroxide/Mg Hydroxide (Mylanta Plus Xs) 15 ml PRN AFTMEALHC PRN PO DYSPEPSIA 02/02/21 11:00 Magnesium Hydroxide (Milk Of Magnesia) 2,400 mg PRN QHS PRN PO 2ND CHOICE CONSTIPATION 02/02/21 11:00 02/12/21 05:24 Acetaminophen (Tylenol) 650 mg PRN Q6HRS PRN PO pain or fever 02/02/21 13:45 UNV Amiodarone HCl (Cordarone) 200 mg DAILY PO 02/03/21 09:00 03/01/21 08:56 Apixaban (Eliquis) 2.5 mg BID PO 02/02/21 21:00 03/01/21 20:55 Carvedilol (Coreg) 12.5 mg BIDWMEALS PO 02/02/21 17:00 03/01/21 08:57 Cyclobenzaprine HCl (Flexeril) 10 mg DAILY PO 02/03/21 09:00 03/01/21 08:55 Fluconazole (Diflucan) 100 mg DAILY PO 02/03/21 09:00 02/07/21 09:30 DC 02/07/21 08:39 Furosemide (Lasix) 40 mg DAILY PO 02/03/21 09:00 02/02/21 16:16 DC Haloperidol (Haldol) 1 mg DAILY PO 02/03/21 09:00 02/03/21 14:19 DC 02/03/21 08:55 Hyoscyamine (Anaspaz) 0.125 mg PRN Q8HRS PRN PO GI SYMPTOMS 02/02/21 13:45 Levothyroxine Sodium (Synthroid) 50 mcg DAILY06 PO 02/03/21 06:00 03/02/21 05:55 Lorazepam (Ativan) 1 mg 1500 PO 02/02/21 15:00 02/03/21 14:19 DC 02/02/21 16:43 Losartan Potassium (Cozaar) 50 mg DAILY PO 02/03/21 09:00 02/02/21 16:16 DC Lubiprostone (Amitiza) 24 mcg BID PO 02/02/21 21:00 03/01/21 22:09 Nystatin (Nystop) 1 vu PRN DAILY PRN TP YEAST UNDER BREAST 02/02/21 13:45 02/08/21 22:44 DC 02/08/21 10:17 Olanzapine (ZyPREXA) 5 mg BID PO 02/02/21 21:00 02/10/21 11:12 DC 02/10/21 08:33 Potassium Chloride (Klor-Con) 10 meq BID PO 02/02/21 21:00 03/01/21 20:55 Pregabalin (Lyrica) 75 mg BID PO 02/02/21 21:00 03/01/21 22:10 Quetiapine Fumarate (SEROquel) 50 mg PRN QHS PRN PO AGITATION 02/02/21 13:45 02/26/21 22:01 Quetiapine Fumarate (SEROquel) 25 mg DAILY PO 02/03/21 09:00 02/10/21 11:12 DC 02/10/21 08:32 Fluticasone/ Vilanterol (Breo Ellipta 100-25 Mcg) 1 puff DAILY INH 02/03/21 09:00 03/01/21 09:00 Non-Formulary Medication (Glucagon (Baqsimi)) 3 mg PRN PRN NS HYPOGLYCEMIA 02/02/21 13:45 UNV Insulin Glargine (Lantus Syringe) 8 unit QHS SQ 02/02/21 21:00 02/17/21 18:26 DC 02/11/21 21:05 Non-Formulary Medication (Insulin Lispro (Humalog)) 100 unit ACHS PRN SQ DIABETES MELLITIS 02/02/21 13:45 02/02/21 18:17 DC Pantoprazole Sodium (Protonix) 40 mg DAILY PO 02/03/21 09:00 03/01/21 08:57 Polyethylene Glycol (miraLAX) 17 gm PRN BID PRN PO 1ST CHOICE CONSTIPATION 02/02/21 14:15 02/13/21 08:00 Furosemide (Lasix) 20 mg DAILY PO 02/03/21 09:00 03/01/21 08:57 Losartan Potassium (Cozaar) 25 mg DAILY PO 02/03/21 09:00 03/01/21 08:55 Non-Formulary Medication (Insulin Lispro (Humalog)) 100 unit TIDACHC SQ 02/02/21 21:00 UNV Olanzapine (ZyPREXA ZYDIS) 2.5 mg PRN Q2HR PRN PO PSYCHOSIS 02/02/21 18:30 02/26/21 22:01 Insulin Human Lispro (HumaLOG) 0-5 UNITS TIDWMEALS SQ 02/03/21 08:00 02/27/21 17:00 Dextrose (Dextrose 50%-Water Syringe) 12.5 gm PRN Q15MIN PRN IV SEE COMMENTS 02/02/21 18:45 Lorazepam (Ativan) 0.5 mg 1500 PO 02/03/21 15:00 02/05/21 23:50 DC 02/05/21 17:54 Nystatin (Nystop) 1 vu BID TP 02/09/21 09:00 03/01/21 20:55 Olanzapine (ZyPREXA) 5 mg DAILY PO 02/11/21 09:00 02/21/21 20:20 DC 02/21/21 08:47 Olanzapine (ZyPREXA) 7.5 mg QHS PO 02/10/21 21:00 02/21/21 20:20 DC 02/19/21 19:32 Fluticasone Propionate (Flonase) 2 spray DAILY NS 02/20/21 09:00 03/01/21 09:01 Quetiapine Fumarate (SEROquel) 12.5 mg TIDAFTMEAL PO 02/22/21 09:00 02/22/21 14:21 DC 02/22/21 13:31 Sertraline HCl (Zoloft) 50 mg DAILY PO 02/22/21 09:00 02/26/21 18:18 DC 02/26/21 08:53 Quetiapine Fumarate (SEROquel) 12.5 mg 0900,1300,1700 PO 02/22/21 17:00 03/01/21 11:29 DC 03/01/21 08:57 Sertraline HCl (Zoloft) 75 mg DAILY PO 02/27/21 09:00 03/01/21 08:54 Quetiapine Fumarate (SEROquel) 25 mg 0900,1300,1700 PO 03/01/21 13:00 03/01/21 14:55 DC 03/01/21 13:12 Quetiapine Fumarate (SEROquel) 12.5 mg 0900,1300 PO 03/02/21 09:00 Quetiapine Fumarate (SEROquel) 25 mg QHS PO 03/01/21 21:00 03/01/21 20:55 Current Medications Medications (Trade) Dose Ordered Sig/Meet Route PRN Reason Start Time Stop Time Status Last Admin Dose Admin Quetiapine Fumarate (SEROquel) 25 mg 0900,1300,1700 PO 03/01/21 13:00 03/01/21 14:55 DC 03/01/21 13:12 Quetiapine Fumarate (SEROquel) 25 mg QHS PO 03/01/21 21:00 03/01/21 20:55 I have reviewed the current psychotropics carefully including drug interactions. Risk benefit ratio favors no change other than as noted in my dictated progress note. Diagnosis: Problems: (1) Impulse control disorder, unspecified (2) Anxiety disorder, unspecified (3) Dementia, vascular, with depression (4) Dementia, vascular, with delusions (5) Dementia in Alzheimer's disease with depression (6) Dementia in Alzheimer's disease with delusions (7) Major neurocognitive disorder (8) Dementia of the Alzheimer's type with early onset with behavioral disturbance JARRETT LEONE MD Mar 02, 2021 06:45
--- NOTE | 2021-03-02 07:20 | PDOC ---
Exam Note: Jose Daniel Note: This note is a late entry for 03/01/2021 covers elements not covered in my initial note. Subjective: The patient was reviewed in the morning of 03/01/2021 for a treatment team meeting with Carla Bhatt, Krys Ramon and Rebecca (transition social worker), Krissy, activity therapy and Tanner SANTOS, discussed and reviewed the chart. She slept 7-1/2 hours previous night. She refused her h.s. medications. Labs are unremarkable. She is spending much time in her room. Report from [facility] via Rebecca transition social worker indicates that they feel her psychotropics may be inadequate and some of her behaviors that prompted the initial referral will resurface once she is back at the [facility]. We had initially considered increasing the Seroquel from 12.5 mg t.i.d. to 25 mg t.i.d., but the granddaughter was concerned about sedation on Seroquel and we opted to just increase the h.s. dosage to 25 mg, leave the other two at 12.5 mg. Review of Systems: Ambulation impaired in wheelchair. No CV, , pulmonary, eye, ENT system symptoms on review. She is wanting some help, tying her night time robe and I did inform the nursing staff of this. Mental Status Exam: The patient is oriented to herself. Speech low in rate and rhythm, low in volume. Often response is monosyllabic. Poor eye contact. Insight and judgment, recent and remote memory, attention and concentration, fund of knowledge consistent with her diagnoses. Laboratory Data: Reviewed. Impression: Major neurocognitive disorder Alzheimer vascular with delusion, depression, behavioral disturbance. Anxiety disorder unspecified. Impulse control disorder unspecified. Plan: No change from initial note. Tentative discharge to the [facility] on 03/02/21. Assessment: Vital Signs/I&O: Vital Signs Date Time Temp Pulse Resp B/P (MAP) Pulse Ox O2 Delivery O2 Flow Rate FiO2 03/02/21 05:53 97.0 70 18 146/81 (102) 96 Room Air I & O 03/01/21 03/01/21 03/02/21 15:00 23:00 07:00 Intake Total 600 ml 360 ml 120 ml Balance 600 ml 360 ml 120 ml Labs: Laboratory Tests Test 03/01/21 07:28 03/01/21 11:43 03/01/21 16:56 03/01/21 19:28 Glucose (Fingerstick) 91 mg/dL (70-99) 120 mg/dL (70-99) H 76 mg/dL (70-99) 95 mg/dL (70-99) Current Medications: Meds: Laboratory Tests Test 03/01/21 07:28 03/01/21 11:43 03/01/21 16:56 03/01/21 19:28 Glucose (Fingerstick) 91 mg/dL 120 mg/dL 76 mg/dL 95 mg/dL Current Medications Medications (Trade) Dose Ordered Sig/Meet Route PRN Reason Start Time Stop Time Status Last Admin Dose Admin Acetaminophen (Tylenol) 650 mg PRN Q6HRS PRN PO MILD PAIN / TEMP > 100.3'F 02/02/21 11:00 02/28/21 20:30 Multi-Ingredient Ointment (Analgesic [place]) 1 vu PRN QID PRN TP MUSCLE PAIN 02/02/21 11:00 Al Hydroxide/Mg Hydroxide (Mylanta Plus Xs) 15 ml PRN AFTMEALHC PRN PO DYSPEPSIA 02/02/21 11:00 Magnesium Hydroxide (Milk Of Magnesia) 2,400 mg PRN QHS PRN PO 2ND CHOICE CONSTIPATION 02/02/21 11:00 02/12/21 05:24 Acetaminophen (Tylenol) 650 mg PRN Q6HRS PRN PO pain or fever 02/02/21 13:45 UNV Amiodarone HCl (Cordarone) 200 mg DAILY PO 02/03/21 09:00 03/01/21 08:56 Apixaban (Eliquis) 2.5 mg BID PO 02/02/21 21:00 03/01/21 20:55 Carvedilol (Coreg) 12.5 mg BIDWMEALS PO 02/02/21 17:00 03/01/21 08:57 Cyclobenzaprine HCl (Flexeril) 10 mg DAILY PO 02/03/21 09:00 03/01/21 08:55 Fluconazole (Diflucan) 100 mg DAILY PO 02/03/21 09:00 02/07/21 09:30 DC 02/07/21 08:39 Furosemide (Lasix) 40 mg DAILY PO 02/03/21 09:00 02/02/21 16:16 DC Haloperidol (Haldol) 1 mg DAILY PO 02/03/21 09:00 02/03/21 14:19 DC 02/03/21 08:55 Hyoscyamine (Anaspaz) 0.125 mg PRN Q8HRS PRN PO GI SYMPTOMS 02/02/21 13:45 Levothyroxine Sodium (Synthroid) 50 mcg DAILY06 PO 02/03/21 06:00 03/02/21 05:55 Lorazepam (Ativan) 1 mg 1500 PO 02/02/21 15:00 02/03/21 14:19 DC 02/02/21 16:43 Losartan Potassium (Cozaar) 50 mg DAILY PO 02/03/21 09:00 02/02/21 16:16 DC Lubiprostone (Amitiza) 24 mcg BID PO 02/02/21 21:00 03/01/21 22:09 Nystatin (Nystop) 1 vu PRN DAILY PRN TP YEAST UNDER BREAST 02/02/21 13:45 02/08/21 22:44 DC 02/08/21 10:17 Olanzapine (ZyPREXA) 5 mg BID PO 02/02/21 21:00 02/10/21 11:12 DC 02/10/21 08:33 Potassium Chloride (Klor-Con) 10 meq BID PO 02/02/21 21:00 03/01/21 20:55 Pregabalin (Lyrica) 75 mg BID PO 02/02/21 21:00 03/01/21 22:10 Quetiapine Fumarate (SEROquel) 50 mg PRN QHS PRN PO AGITATION 02/02/21 13:45 02/26/21 22:01 Quetiapine Fumarate (SEROquel) 25 mg DAILY PO 02/03/21 09:00 02/10/21 11:12 DC 02/10/21 08:32 Fluticasone/ Vilanterol (Breo Ellipta 100-25 Mcg) 1 puff DAILY INH 02/03/21 09:00 03/01/21 09:00 Non-Formulary Medication (Glucagon (Baqsimi)) 3 mg PRN PRN NS HYPOGLYCEMIA 02/02/21 13:45 UNV Insulin Glargine (Lantus Syringe) 8 unit QHS SQ 02/02/21 21:00 02/17/21 18:26 DC 02/11/21 21:05 Non-Formulary Medication (Insulin Lispro (Humalog)) 100 unit ACHS PRN SQ DIABETES MELLITIS 02/02/21 13:45 02/02/21 18:17 DC Pantoprazole Sodium (Protonix) 40 mg DAILY PO 02/03/21 09:00 03/01/21 08:57 Polyethylene Glycol (miraLAX) 17 gm PRN BID PRN PO 1ST CHOICE CONSTIPATION 02/02/21 14:15 02/13/21 08:00 Furosemide (Lasix) 20 mg DAILY PO 02/03/21 09:00 03/01/21 08:57 Losartan Potassium (Cozaar) 25 mg DAILY PO 02/03/21 09:00 03/01/21 08:55 Non-Formulary Medication (Insulin Lispro (Humalog)) 100 unit TIDACHC SQ 02/02/21 21:00 UNV Olanzapine (ZyPREXA ZYDIS) 2.5 mg PRN Q2HR PRN PO PSYCHOSIS 02/02/21 18:30 02/26/21 22:01 Insulin Human Lispro (HumaLOG) 0-5 UNITS TIDWMEALS SQ 02/03/21 08:00 02/27/21 17:00 Dextrose (Dextrose 50%-Water Syringe) 12.5 gm PRN Q15MIN PRN IV SEE COMMENTS 02/02/21 18:45 Lorazepam (Ativan) 0.5 mg 1500 PO 02/03/21 15:00 02/05/21 23:50 DC 02/05/21 17:54 Nystatin (Nystop) 1 vu BID TP 02/09/21 09:00 03/01/21 20:55 Olanzapine (ZyPREXA) 5 mg DAILY PO 02/11/21 09:00 02/21/21 20:20 DC 02/21/21 08:47 Olanzapine (ZyPREXA) 7.5 mg QHS PO 02/10/21 21:00 02/21/21 20:20 DC 02/19/21 19:32 Fluticasone Propionate (Flonase) 2 spray DAILY NS 02/20/21 09:00 03/01/21 09:01 Quetiapine Fumarate (SEROquel) 12.5 mg TIDAFTMEAL PO 02/22/21 09:00 02/22/21 14:21 DC 02/22/21 13:31 Sertraline HCl (Zoloft) 50 mg DAILY PO 02/22/21 09:00 02/26/21 18:18 DC 02/26/21 08:53 Quetiapine Fumarate (SEROquel) 12.5 mg 0900,1300,1700 PO 02/22/21 17:00 03/01/21 11:29 DC 03/01/21 08:57 Sertraline HCl (Zoloft) 75 mg DAILY PO 02/27/21 09:00 03/01/21 08:54 Quetiapine Fumarate (SEROquel) 25 mg 0900,1300,1700 PO 03/01/21 13:00 03/01/21 14:55 DC 03/01/21 13:12 Quetiapine Fumarate (SEROquel) 12.5 mg 0900,1300 PO 03/02/21 09:00 Quetiapine Fumarate (SEROquel) 25 mg QHS PO 03/01/21 21:00 03/01/21 20:55 Current Medications Medications (Trade) Dose Ordered Sig/Meet Route PRN Reason Start Time Stop Time Status Last Admin Dose Admin Quetiapine Fumarate (SEROquel) 25 mg 0900,1300,1700 PO 03/01/21 13:00 03/01/21 14:55 DC 03/01/21 13:12 Quetiapine Fumarate (SEROquel) 25 mg QHS PO 03/01/21 21:00 03/01/21 20:55 I have reviewed the current psychotropics carefully including drug interactions. Risk benefit ratio favors no change other than as noted in my dictated progress note. Diagnosis: Problems: (1) Impulse control disorder, unspecified (2) Anxiety disorder, unspecified (3) Dementia, vascular, with depression (4) Dementia, vascular, with delusions (5) Dementia in Alzheimer's disease with depression (6) Dementia in Alzheimer's disease with delusions (7) Major neurocognitive disorder (8) Dementia of the Alzheimer's type with early onset with behavioral disturbance JARRETT LEONE MD Mar 02, 2021 07:20
[2021-03-02] MEDS: INSULIN LISPRO 300 UNITS/3 ML VIAL. SQ SCH (08:00)
[2021-03-02] MEDS: FLUTICASONE 50MCG/NASAL SPRAY 16GM BOTTLE. NS SCH (08:03)
[2021-03-02] MEDS: FUROSEMIDE 20 MG TABLET PO SCH (08:04)
[2021-03-02] MEDS: AMIODARONE HCL 200 MG TABLET. PO SCH (08:04)
[2021-03-02] MEDS: POTASSIUM CHLORIDE 10 MEQ TABLET.ER. PO SCH (08:04)
[2021-03-02 08:05] VITALS: BP 146/81
[2021-03-02] MEDS: PREGABALIN 75 MG CAPSULE PO SCH (08:05)
[2021-03-02] MEDS: LOSARTAN 25 MG TABLET. PO SCH (08:05)
[2021-03-02] MEDS: SERTRALINE 25 MG TABLET. PO SCH (08:05)
[2021-03-02] MEDS: LUBIPROSTONE 24 MCG CAPSULE PO SCH (08:05)
[2021-03-02] MEDS: CARVEDILOL 12.5 MG TABLET PO SCH (08:05)
[2021-03-02] MEDS: APIXABAN 2.5 MG TABLET PO SCH (08:05)
[2021-03-02] MEDS: CYCLOBENZAPRINE 10 MG TABLET. PO SCH (08:06)
[2021-03-02] MEDS: PANTOPRAZOLE 40 MG TABLET. PO SCH (08:06)
[2021-03-02] MEDS: FLUTICASONE/VILANTEROL 100/25 INHALER. INH SCH (08:17)
[2021-03-02] MEDS ORDERED: QUEtiapine 25 MG TABLET. PO SCH (09:00)
[2021-03-02] MEDS: NYSTATIN TOPICAL POWDER 15GM BOTTLE. TP SCH (09:00)
--- NOTE | 2021-03-02 22:10 | PDOC ---
Exam Note: Jose Daniel Note: Please also refer to the separate dictated note~for this date of service dictated separately.~Patient seen individually. Discussed the patient with Nursing staff reviewed the chart.~Reviewed interim history and current functioning. Reviewed vital signs,~Labs/ Radiology~and current medications noted below. Continue current treatment with the changes noted in the dictated addendum note Assessment: Vital Signs/I&O: Vital Signs Date Time Temp Pulse Resp B/P (MAP) Pulse Ox O2 Delivery O2 Flow Rate FiO2 03/02/21 08:05 70 146/81 03/02/21 05:53 97.0 18 96 Room Air I & O 03/01/21 03/01/21 03/02/21 14:59 22:59 06:59 Intake Total 600 ml 360 ml 120 ml Balance 600 ml 360 ml 120 ml Labs: Laboratory Tests Test 03/02/21 07:21 03/02/21 11:24 Glucose (Fingerstick) 86 mg/dL (70-99) 110 mg/dL (70-99) H Current Medications: Meds: Laboratory Tests Test 03/02/21 07:21 03/02/21 11:24 Glucose (Fingerstick) 86 mg/dL 110 mg/dL Current Medications Medications (Trade) Dose Ordered Sig/Meet Route PRN Reason Start Time Stop Time Status Last Admin Dose Admin Acetaminophen (Tylenol) 650 mg PRN Q6HRS PRN PO MILD PAIN / TEMP > 100.3'F 02/02/21 11:00 03/02/21 11:57 DC 02/28/21 20:30 Multi-Ingredient Ointment (Analgesic [place]) 1 vu PRN QID PRN TP MUSCLE PAIN 02/02/21 11:00 03/02/21 11:57 DC Al Hydroxide/Mg Hydroxide (Mylanta Plus Xs) 15 ml PRN AFTMEALHC PRN PO DYSPEPSIA 02/02/21 11:00 03/02/21 11:57 DC Magnesium Hydroxide (Milk Of Magnesia) 2,400 mg PRN QHS PRN PO 2ND CHOICE CONSTIPATION 02/02/21 11:00 03/02/21 11:57 DC 02/12/21 05:24 Acetaminophen (Tylenol) 650 mg PRN Q6HRS PRN PO pain or fever 02/02/21 13:45 UNV Amiodarone HCl (Cordarone) 200 mg DAILY PO 02/03/21 09:00 03/02/21 11:57 DC 03/02/21 08:04 Apixaban (Eliquis) 2.5 mg BID PO 02/02/21 21:00 03/02/21 11:57 DC 03/02/21 08:05 Carvedilol (Coreg) 12.5 mg BIDWMEALS PO 02/02/21 17:00 03/02/21 11:57 DC 03/02/21 08:05 Cyclobenzaprine HCl (Flexeril) 10 mg DAILY PO 02/03/21 09:00 03/02/21 11:57 DC 03/02/21 08:06 Fluconazole (Diflucan) 100 mg DAILY PO 02/03/21 09:00 02/07/21 09:30 DC 02/07/21 08:39 Furosemide (Lasix) 40 mg DAILY PO 02/03/21 09:00 02/02/21 16:16 DC Haloperidol (Haldol) 1 mg DAILY PO 02/03/21 09:00 02/03/21 14:19 DC 02/03/21 08:55 Hyoscyamine (Anaspaz) 0.125 mg PRN Q8HRS PRN PO GI SYMPTOMS 02/02/21 13:45 03/02/21 11:57 DC Levothyroxine Sodium (Synthroid) 50 mcg DAILY06 PO 02/03/21 06:00 03/02/21 11:57 DC 03/02/21 05:55 Lorazepam (Ativan) 1 mg 1500 PO 02/02/21 15:00 02/03/21 14:19 DC 02/02/21 16:43 Losartan Potassium (Cozaar) 50 mg DAILY PO 02/03/21 09:00 02/02/21 16:16 DC Lubiprostone (Amitiza) 24 mcg BID PO 02/02/21 21:00 03/02/21 11:57 DC 03/02/21 08:05 Nystatin (Nystop) 1 vu PRN DAILY PRN TP YEAST UNDER BREAST 02/02/21 13:45 02/08/21 22:44 DC 02/08/21 10:17 Olanzapine (ZyPREXA) 5 mg BID PO 02/02/21 21:00 02/10/21 11:12 DC 02/10/21 08:33 Potassium Chloride (Klor-Con) 10 meq BID PO 02/02/21 21:00 03/02/21 11:57 DC 03/02/21 08:04 Pregabalin (Lyrica) 75 mg BID PO 02/02/21 21:00 03/02/21 11:57 DC 03/02/21 08:05 Quetiapine Fumarate (SEROquel) 50 mg PRN QHS PRN PO AGITATION 02/02/21 13:45 03/02/21 11:57 DC 02/26/21 22:01 Quetiapine Fumarate (SEROquel) 25 mg DAILY PO 02/03/21 09:00 02/10/21 11:12 DC 02/10/21 08:32 Fluticasone/ Vilanterol (Breo Ellipta 100-25 Mcg) 1 puff DAILY INH 02/03/21 09:00 03/02/21 11:57 DC 03/02/21 08:17 Non-Formulary Medication (Glucagon (Baqsimi)) 3 mg PRN PRN NS HYPOGLYCEMIA 02/02/21 13:45 UNV Insulin Glargine (Lantus Syringe) 8 unit QHS SQ 02/02/21 21:00 02/17/21 18:26 DC 02/11/21 21:05 Non-Formulary Medication (Insulin Lispro (Humalog)) 100 unit ACHS PRN SQ DIABETES MELLITIS 02/02/21 13:45 02/02/21 18:17 DC Pantoprazole Sodium (Protonix) 40 mg DAILY PO 02/03/21 09:00 03/02/21 11:57 DC 03/02/21 08:06 Polyethylene Glycol (miraLAX) 17 gm PRN BID PRN PO 1ST CHOICE CONSTIPATION 02/02/21 14:15 03/02/21 11:57 DC 02/13/21 08:00 Furosemide (Lasix) 20 mg DAILY PO 02/03/21 09:00 03/02/21 11:57 DC 03/02/21 08:04 Losartan Potassium (Cozaar) 25 mg DAILY PO 02/03/21 09:00 03/02/21 11:57 DC 03/02/21 08:05 Non-Formulary Medication (Insulin Lispro (Humalog)) 100 unit TIDACHC SQ 02/02/21 21:00 UNV Olanzapine (ZyPREXA ZYDIS) 2.5 mg PRN Q2HR PRN PO PSYCHOSIS 02/02/21 18:30 03/02/21 11:57 DC 02/26/21 22:01 Insulin Human Lispro (HumaLOG) 0-5 UNITS TIDWMEALS SQ 02/03/21 08:00 03/02/21 11:57 DC 02/27/21 17:00 Dextrose (Dextrose 50%-Water Syringe) 12.5 gm PRN Q15MIN PRN IV SEE COMMENTS 02/02/21 18:45 03/02/21 11:57 DC Lorazepam (Ativan) 0.5 mg 1500 PO 02/03/21 15:00 02/05/21 23:50 DC 02/05/21 17:54 Nystatin (Nystop) 1 vu BID TP 02/09/21 09:00 03/02/21 11:57 DC 03/02/21 09:00 Olanzapine (ZyPREXA) 5 mg DAILY PO 02/11/21 09:00 02/21/21 20:20 DC 02/21/21 08:47 Olanzapine (ZyPREXA) 7.5 mg QHS PO 02/10/21 21:00 02/21/21 20:20 DC 02/19/21 19:32 Fluticasone Propionate (Flonase) 2 spray DAILY NS 02/20/21 09:00 03/02/21 11:57 DC 03/02/21 08:03 Quetiapine Fumarate (SEROquel) 12.5 mg TIDAFTMEAL PO 02/22/21 09:00 02/22/21 14:21 DC 02/22/21 13:31 Sertraline HCl (Zoloft) 50 mg DAILY PO 02/22/21 09:00 02/26/21 18:18 DC 02/26/21 08:53 Quetiapine Fumarate (SEROquel) 12.5 mg 0900,1300,1700 PO 02/22/21 17:00 03/01/21 11:29 DC 03/01/21 08:57 Sertraline HCl (Zoloft) 75 mg DAILY PO 02/27/21 09:00 03/02/21 11:57 DC 03/02/21 08:05 Quetiapine Fumarate (SEROquel) 25 mg 0900,1300,1700 PO 03/01/21 13:00 03/01/21 14:55 DC 03/01/21 13:12 Quetiapine Fumarate (SEROquel) 12.5 mg 0900,1300 PO 03/02/21 09:00 03/02/21 11:57 DC 03/02/21 08:06 Quetiapine Fumarate (SEROquel) 25 mg QHS PO 03/01/21 21:00 03/02/21 11:57 DC 03/01/21 20:55 Current Medications Medications (Trade) Dose Ordered Sig/Meet Route PRN Reason Start Time Stop Time Status Last Admin Dose Admin Quetiapine Fumarate (SEROquel) 12.5 mg 0900,1300 PO 03/02/21 09:00 03/02/21 11:57 DC 03/02/21 08:06 I have reviewed the current psychotropics carefully including drug interactions. Risk benefit ratio favors no change other than as noted in my dictated progress note. Diagnosis: Problems: (1) Impulse control disorder, unspecified (2) Anxiety disorder, unspecified (3) Dementia, vascular, with depression (4) Dementia, vascular, with delusions (5) Dementia in Alzheimer's disease with depression (6) Dementia in Alzheimer's disease with delusions (7) Major neurocognitive disorder (8) Dementia of the Alzheimer's type with early onset with behavioral disturbance JARRETT LEONE MD Mar 02, 2021 22:10
--- NOTE | 2021-03-03 22:55 | DS ---
DATE OF DISCHARGE: 03/02/2021 DISCHARGE SUMMARY/PSYCHIATRIC PROGRESS NOTE This is a late entry, date of service 03/02/2021, covers elements that is not covered in my initial note. REASON FOR ADMISSION: Please refer to the admission history for details. Briefly, the patient is an 85-year-old female referred to us from [facility] by her primary care physician, psychiatrist, on account of progressive confusion, symptoms of depression, delusions, worsening anxiety and impulse control problems. She was refusing medications, resistive to cares, making elopement attempts, restless with sundowning, combative, was kicking at staff, yelling, delusional that her house was on fire and babies were on the second floor. She had failed outpatient psychiatric interventions resulting in this referral. SIGNIFICANT FINDINGS AND CLINICAL COURSE: Following admission, the patient was seen daily individually by myself from a psychiatric standpoint medical followup, Dr. Chinchilla/Dr. Ceja. The patient remained anxious, restless, generally sitting slumped forward in her wheelchair and confused. Adjustments were made in her psychotropic. She seemed to respond to a combination of Zoloft 75 mg a day, Seroquel 12.5 mg at 0900, 1300 and 25 mg at bedtime, Zyprexa p.r.n. psychosis, agitation, Seroquel 50 mg at bedtime p.r.n. psychosis, agitation. CONDITION AT DISCHARGE: Improved. Prior to discharge, ambulation impaired in wheelchair, complains of tiredness. No CV, , pulmonary, EYE, ENT system symptoms on review. Reliability poor. MENTAL STATUS EXAM: Oriented to herself, situation. Speech moderate latency, low in rate and rhythm, low in volume. Abstraction fair. Computation impaired. Language function intact. Mood and affect withdrawn. She is confused. CONDITION ON DISCHARGE: Improved. FINAL DIAGNOSES: Major depressive disorder, recurrent with psychotic features, in partial remission; major neurocognitive disorder, early Alzheimer, vascular with delusion; depression; behavioral disturbance; anxiety disorder, unspecified; impulse control disorder, unspecified. DISCHARGE MEDICATIONS: Please refer to the [facility]. DISCHARGE INSTRUCTIONS: [facility] DOMINIQUE DR: Anna TID: [id number]
== END 2021-03-02 11:55 | DRG 885 ==
LOC: GEROPSY 10:15
PROVIDERS: ADMIT Psychiatry & Neurology Psychiatry; ATTEND Psychiatry & Neurology Psychiatry
DX: F33.3 Major depressive disorder, recurrent, severe with psychotic symptoms (principal); F05 Delirium due to known physiological condition; E43 Unspecified severe protein-calorie malnutrition; N18.9 Chronic kidney disease, unspecified; F02.81 Dementia in other diseases classified elsewhere, unspecified severity, with behavioral disturbance; I13.0 Hypertensive heart and chronic kidney disease with heart failure and stage 1 through stage 4 chronic kidney disease, or unspecified chronic kidney disease; E87.0 Hyperosmolality and hypernatremia; Z68.41 Body mass index [BMI] 40.0-44.9, adult; F01.51 Vascular dementia, unspecified severity, with behavioral disturbance; E03.9 Hypothyroidism, unspecified; E11.22 Type 2 diabetes mellitus with diabetic chronic kidney disease; F41.9 Anxiety disorder, unspecified; F63.9 Impulse disorder, unspecified; G30.9 Alzheimer's disease, unspecified; I48.91 Unspecified atrial fibrillation; I50.9 Heart failure, unspecified; J44.9 Chronic obstructive pulmonary disease, unspecified; K59.09 Other constipation; Z66 Do not resuscitate; Z79.899 Other long term (current) drug therapy; Z20.822 Contact with and (suspected) exposure to COVID-19
CPT/HCPCS: 36415; 36600; 71045; 80048; 80053; 80061; 81001; 82306; 82607; 82803; 82947; 83036; 83540; 83550; 83735; 84436; 84443; 84480; 84484; 85025; 85379; 86592; 87086; 93005; J1815; U0003; 97535